=== PATIENT | female | born 1950 | race African-American/Black ===

== ENCOUNTER → 2016-12-28 | Outpatient (CLI) | payer MEDICARE, MEDICAID ==
[~2016-12-28] MED LIST: ATOR80TA76 PO; CLOP75TA2 PO; DOXA4TAB3 PO; METO25TA6 PO; OMEP20CA10 PO; SITA100T6 PO; TRIA1CAP6 PO
== END | disposition home or self-care (01) ==
LOC: MAMMO 07:13
PROVIDERS: ATTEND Internal Medicine
DX: Z12.31 Encounter for screening mammogram for malignant neoplasm of breast (principal)
CPT/HCPCS: G0202

== ENCOUNTER 2017-03-03 05:10 | Inpatient (IN) | payer MEDICARE, MEDICAID ==
[~2017-03-03] VITALS: Ht 160 cm; Wt 103.4 kg
[~2017-03-03 05:10] MED LIST changes: +ATOR-2 PO; -ATOR80TA76 PO
[2017-03-03] MEDS ORDERED: MORPHINE SULFATE 4 MG/ML CPJ (NOT FOR IM USE) IV STA (06:37)
[2017-03-03] MEDS ORDERED: ONDANSETRON HCL 4MG/2ML VIAL IV STA (06:37)
[2017-03-03 07:13] LABS: BASOPHILS % 0.3 % (0.0-2.0); EOSINOPHILS % 1.3 % (0.0-5.0); HEMATOCRIT. 43.6 % (36.0-48.0); HEMOGLOBIN. 14.9 g/dL (12.0-16.0); LYMPHOCYTES % 28.9 % (20.0-50.0); MEAN CORPUSCULAR HEMOGLOBIN 34.2 pg (28.0-32.0); MEAN CORPUSCULAR VOLUME 100.3 fL (81.0-99.0); MEAN PLATELET VOLUME 8.3 fl (7.4-10.4); MONOCYTES % 6.3 % (2.0-8.0); NEUTROPHILS % 63.2 % (40.0-76.0); PLATELET 188 x1000/uL (130-400); RED BLOOD CELL COUNT 4.35 mill/uL (4.2-5.4); RED CELL DISTRIBUTION WIDTH 13.6 % (11.6-14.6)
[2017-03-03 07:17] LABS: PARTIAL THROMBOPLASTIN TIME 26.6 sec (24.0-34.0); PROTHROMBIN TIME 10.8 sec
[2017-03-03 07:22] LABS: CARBON DIOXIDE 31 mEq/L (21-32); CHLORIDE 103 mEq/L (98-107); TROPONIN I < 0.02 ng/mL (0.00-0.04)
[2017-03-03 08:21] LABS: GLUCOSE URINE NEGATIVE (NEGATIVE); KETONES URINE NEGATIVE (NEGATIVE); LEUKOCYTE ESTERASE URINE NEGATIVE (NEGATIVE); NITRITE URINE NEGATIVE (NEGATIVE); OCCULT BLOOD URINE NEGATIVE (NEGATIVE); PH URINE 6.5 (4.5-8.0); PROTEIN URINE NEGATIVE (NEGATIVE); SPECIFIC GRAVITY URINE 1.014 (1.005-1.030); UROBILINOGEN URINE 0.2 E.U./dL (0.2-1.0)
[2017-03-03 08:52] LABS: CLARITY URINE CLEAR (CLEAR); COLOR URINE YELLOW (YELLOW)
[2017-03-03] MEDS ORDERED: SODIUM CHLORIDE 0.9% 10ML VIAL ONE (09:33)
[2017-03-03] MEDS ORDERED: IOHEXOL-300 100 ML BOTTLE ONE (09:33)
[2017-03-03] MEDS ORDERED: ACETAMINOPHEN 325MG TABLET PO PRN (11:00)
[2017-03-03] MEDS ORDERED: LORAZEPAM 2MG/ML CPJ IV PRN (11:00)
[2017-03-03] MEDS ORDERED: DOCUSATE SODIUM 100MG CAPSULE PO PRN (11:00)
[2017-03-03] MEDS ORDERED: GUAIFENESIN 200MG/10ML SUGAR FREE UDC PO PRN (11:00)
[2017-03-03] MEDS ORDERED: NA PHOS,M-B/NA PHOS,DI-BA ENEMA 118ML PR PRN (11:00)
[2017-03-03] MEDS ORDERED: DIPHENHYDRAMINE 50MG/ML VIAL IV PRN (11:00)
[2017-03-03] MEDS ORDERED: ONDANSETRON HCL 4MG/2ML VIAL IV PRN ×2 (11:00→17:00)
[2017-03-03] MEDS ORDERED: IPRATROPIUM/ALBUTEROL 0.5-3(2.5)MG/3ML NEB INH PRN (11:00)
[2017-03-03] MEDS ORDERED: DEXTROSE 50% WATER 50ML SYRINGE IV PRN (12:00)
[2017-03-03] MEDS: BLOOD SUGAR DIAGNOSTIC STRIP TEST SCH ×3 (12:12→20:11)
[2017-03-03] MEDS: INSULIN LISPRO 100 UNITS/ML SUBCUT SCH ×3 (12:12→20:23)
[2017-03-03 12:23] VITALS: BP 122/78
[2017-03-03] MEDS: DILTIAZEM HCL 30MG TABLET PO SCH ×2 (13:15→21:45)
[2017-03-03] MEDS: ENOXAPARIN 30MG/0.3ML SYR SUBCUT SCH ×2 (13:16→20:11)
[2017-03-03] MEDS: HYDROCODONE/ACETAMINOPHEN 5/325MG TABLET PO PRN (13:16)
[2017-03-03 15:36] LABS: CARBON DIOXIDE 27 mEq/L (21-32); CHLORIDE 103 mEq/L (98-107); TROPONIN I < 0.02 ng/mL (0.00-0.04)
[2017-03-03] MEDS: METOCLOPRAMIDE HCL 10MG/2ML VIAL IV PRN (15:53)
[2017-03-03 16:00] VITALS: BP 109/64
[2017-03-03] MEDS ORDERED: ONDANSETRON INJ 8 MG in DEXTROSE 5% WATER 50 ML IV PRN (16:00)
[2017-03-03 20:00] VITALS: BP 130/61
[2017-03-03] MEDS ORDERED: POTASSIUM CHLORIDE 20MEQ TABLET SR PO NR (20:00)
[2017-03-03] MEDS: METOPROLOL TARTRATE 25MG TABLET PO SCH (20:10)
[2017-03-03] MEDS: ATORVASTATIN CALCIUM 40MG TABLET PO SCH (20:11)
[2017-03-04] VITALS: BP 130/52
[2017-03-04 04:00] VITALS: BP 116/55
[2017-03-04] MEDS: BLOOD SUGAR DIAGNOSTIC STRIP TEST SCH ×4 (06:25→21:21)
[2017-03-04] MEDS: OMEPRAZOLE 20MG CAPSULE EXTENDED RELEASE PO SCH (06:33)
[2017-03-04] MEDS: DILTIAZEM HCL 30MG TABLET PO SCH ×3 (06:37→21:22)
[2017-03-04] MEDS: INSULIN LISPRO 100 UNITS/ML SUBCUT SCH ×4 (07:05→21:00)
[2017-03-04 07:50] LABS: BASOPHILS % 0.6 % (0.0-2.0); EOSINOPHILS % 1.7 % (0.0-5.0); HEMATOCRIT. 40.8 % (36.0-48.0); LYMPHOCYTES % 38.3 % (20.0-50.0); MEAN CORPUSCULAR VOLUME 99.1 fL (81.0-99.0); MEAN PLATELET VOLUME 8.4 fl (7.4-10.4); MONOCYTES % 7.8 % (2.0-8.0); NEUTROPHILS % 51.6 % (40.0-76.0); PLATELET 170 x1000/uL (130-400); RED BLOOD CELL COUNT 4.12 mill/uL (4.2-5.4); RED CELL DISTRIBUTION WIDTH 13.4 % (11.6-14.6)
[2017-03-04 08:00] VITALS: BP 135/56
[2017-03-04 08:21] LABS: CARBON DIOXIDE 26 mEq/L (21-32); CHLORIDE 107 mEq/L (98-107); HDL CHOLESTEROL 46 mg/dL (40-59); LDL CHOLESTEROL 55 mg/dL (5-100); T4 FREE 0.91 ng/dL (0.76-1.46)
[2017-03-04] MEDS: METOPROLOL TARTRATE 25MG TABLET PO SCH ×2 (08:34→21:23)
[2017-03-04] MEDS ORDERED: MEDICATION NOT ON FORMULARY EA (Atorvastatin Calcium 80 MG) PO SCH (09:00)
[2017-03-04] MEDS ORDERED: MEDICATION NOT ON FORMULARY EA (Sitagliptin Phosphate (Januvia) 100 MG) PO SCH (09:00)
[2017-03-04] MEDS: CLOPIDOGREL 75MG TABLET PO SCH (09:10)
[2017-03-04] MEDS: ASPIRIN 81MG EC TABLET PO SCH (09:11)
[2017-03-04] MEDS: LINAGLIPTIN 5MG TABLET PO SCH (09:11)
[2017-03-04] MEDS: ENOXAPARIN 30MG/0.3ML SYR SUBCUT SCH ×2 (09:11→21:23)
[2017-03-04] MEDS: DOXAZOSIN MESYLATE 4MG TABLET PO SCH (09:11)
[2017-03-04 12:00] VITALS: BP 143/76
[2017-03-04] MEDS: HYDROMORPHONE HCL/PF 2MG/ML CPJ IV PRN ×2 (15:02→20:30)
[2017-03-04 16:11] VITALS: BP 143/76
[2017-03-04] MEDS: METOCLOPRAMIDE HCL 10MG/2ML VIAL IV PRN (17:36)
[2017-03-04 20:00] VITALS: BP 139/81
[2017-03-04] MEDS: ATORVASTATIN CALCIUM 40MG TABLET PO SCH (21:24)
[2017-03-05] VITALS: BP 121/64
[2017-03-05] MEDS: HYDROMORPHONE HCL/PF 2MG/ML CPJ IV PRN (03:37)
[2017-03-05 04:00] VITALS: BP 124/75
[2017-03-05] MEDS: BLOOD SUGAR DIAGNOSTIC STRIP TEST SCH ×4 (06:21→20:19)
[2017-03-05] MEDS: OMEPRAZOLE 20MG CAPSULE EXTENDED RELEASE PO SCH (06:21)
[2017-03-05] MEDS: DILTIAZEM HCL 30MG TABLET PO SCH (06:21)
[2017-03-05] MEDS: INSULIN LISPRO 100 UNITS/ML SUBCUT SCH ×4 (06:21→21:05)
[2017-03-05 06:42] LABS: BASOPHILS % 0.3 % (0.0-2.0); EOSINOPHILS % 1.5 % (0.0-5.0); HEMATOCRIT. 38.8 % (36.0-48.0); HEMOGLOBIN. 13.3 g/dL (12.0-16.0); LYMPHOCYTES % 21.8 % (20.0-50.0); MEAN CORPUSCULAR HEMOGLOBIN 34.2 pg (28.0-32.0); MEAN CORPUSCULAR VOLUME 99.5 fL (81.0-99.0); MEAN PLATELET VOLUME 8.2 fl (7.4-10.4); MONOCYTES % 8.9 % (2.0-8.0); NEUTROPHILS % 67.5 % (40.0-76.0); PLATELET 160 x1000/uL (130-400); RED CELL DISTRIBUTION WIDTH 13.7 % (11.6-14.6)
[2017-03-05 07:25] LABS: CARBON DIOXIDE 28 mEq/L (21-32); CHLORIDE 105 mEq/L (98-107)
[2017-03-05 08:00] VITALS: BP 142/62
[2017-03-05] MEDS: CLOPIDOGREL 75MG TABLET PO SCH (08:49)
[2017-03-05] MEDS: ENOXAPARIN 30MG/0.3ML SYR SUBCUT SCH ×2 (08:50→20:59)
[2017-03-05] MEDS: METOPROLOL TARTRATE 25MG TABLET PO SCH ×2 (08:50→20:58)
[2017-03-05] MEDS: ASPIRIN 81MG EC TABLET PO SCH (08:50)
[2017-03-05] MEDS: LINAGLIPTIN 5MG TABLET PO SCH (08:50)
[2017-03-05] MEDS: DOXAZOSIN MESYLATE 4MG TABLET PO SCH (08:50)
[2017-03-05 12:00] VITALS: BP 140/69
[2017-03-05] MEDS: DILTIAZEM HCL 60MG TABLET PO SCH ×2 (14:32→20:58)
[2017-03-05 16:09] VITALS: BP 170/71
[2017-03-05] MEDS: HYDROCODONE/ACETAMINOPHEN 5/325MG TABLET PO PRN (16:29)
[2017-03-05] MEDS ORDERED: POTASSIUM CHLORIDE 20MEQ TABLET SR PO NR (16:50)
[2017-03-05] MEDS ORDERED: CLONIDINE 0.2MG TABLET PO PRN (16:51)
[2017-03-05 20:00] VITALS: BP 132/77
[2017-03-05] MEDS: ATORVASTATIN CALCIUM 40MG TABLET PO SCH (20:58)
[2017-03-06] VITALS: BP 115/57
[2017-03-06 04:00] VITALS: BP 142/81
[2017-03-06 05:30] VITALS: BP 102/70
[2017-03-06] MEDS: BLOOD SUGAR DIAGNOSTIC STRIP TEST SCH (05:38)
[2017-03-06] MEDS: HYDROCODONE/ACETAMINOPHEN 5/325MG TABLET PO PRN (05:42)
[2017-03-06] MEDS: DILTIAZEM HCL 60MG TABLET PO SCH (05:42)
[2017-03-06] MEDS: INSULIN LISPRO 100 UNITS/ML SUBCUT SCH (05:43)
[2017-03-06] MEDS: OMEPRAZOLE 20MG CAPSULE EXTENDED RELEASE PO SCH (05:52)
[2017-03-06 07:15] LABS: BASOPHILS % 0.3 % (0.0-2.0); EOSINOPHILS % 1.4 % (0.0-5.0); HEMATOCRIT. 37.7 % (36.0-48.0); HEMOGLOBIN. 12.7 g/dL (12.0-16.0); LYMPHOCYTES % 27.9 % (20.0-50.0); MEAN CORPUSCULAR HEMOGLOBIN 33.8 pg (28.0-32.0); MEAN CORPUSCULAR VOLUME 100.6 fL (81.0-99.0); MEAN PLATELET VOLUME 8.8 fl (7.4-10.4); MONOCYTES % 8.8 % (2.0-8.0); NEUTROPHILS % 61.6 % (40.0-76.0); PLATELET 156 x1000/uL (130-400); RED BLOOD CELL COUNT 3.75 mill/uL (4.2-5.4); RED CELL DISTRIBUTION WIDTH 13.6 % (11.6-14.6)
[2017-03-06 07:44] LABS: CARBON DIOXIDE 26 mEq/L (21-32); CHLORIDE 109 mEq/L (98-107)
[2017-03-06 08:00] VITALS: BP 130/67
[2017-03-06] MEDS ORDERED: REGADENOSON 0.4 MG/5 ML IV ONE ×2 (09:14→13:00)
[2017-03-06 10:13] VITALS: BP 130/67
[2017-03-06] MEDS: ASPIRIN 81MG EC TABLET PO SCH (11:01)
[2017-03-06] MEDS: LINAGLIPTIN 5MG TABLET PO SCH (11:01)
[2017-03-06] MEDS: DOXAZOSIN MESYLATE 4MG TABLET PO SCH (11:01)
[2017-03-06] MEDS: CLOPIDOGREL 75MG TABLET PO SCH (11:01)
[2017-03-06] MEDS: METOPROLOL TARTRATE 25MG TABLET PO SCH (11:02)
[2017-03-06] MEDS: ENOXAPARIN 30MG/0.3ML SYR SUBCUT SCH (11:02)
== END 2017-03-06 11:14 | disposition home or self-care (01) | DRG 392 ==
LOC: ER 05:10 → ENRESERV 09:55 → 8WST 10:51 → EDBEDREQ 11:05
PROVIDERS: ADMIT Internal Medicine; ATTEND Internal Medicine
DX: K21.9 Gastro-esophageal reflux disease without esophagitis (principal); Z68.41 Body mass index [BMI] 40.0-44.9, adult; E78.5 Hyperlipidemia, unspecified; I50.9 Heart failure, unspecified; I11.0 Hypertensive heart disease with heart failure; E66.01 Morbid (severe) obesity due to excess calories; E11.51 Type 2 diabetes mellitus with diabetic peripheral angiopathy without gangrene; E78.00 Pure hypercholesterolemia, unspecified; F17.200 Nicotine dependence, unspecified, uncomplicated; I25.10 Atherosclerotic heart disease of native coronary artery without angina pectoris; J44.9 Chronic obstructive pulmonary disease, unspecified; I25.2 Old myocardial infarction; Z79.84 Long term (current) use of oral hypoglycemic drugs; Z79.899 Other long term (current) drug therapy; Z86.73 Personal history of transient ischemic attack (TIA), and cerebral infarction without residual deficits; Z88.0 Allergy status to penicillin; Z88.8 Allergy status to other drugs, medicaments and biological substances; Z91.040 Latex allergy status; Z98.891 History of uterine scar from previous surgery; Z79.4 Long term (current) use of insulin
CPT/HCPCS: 36415; 71010; 74177; 76705; 78452; 80048; 80053; 80061; 81003; 82962; 83690; 84439; 84443; 84484; 85025; 85610; 85730; 93005; 93017; 93306; 94640; 96374; 96375; 96376; 99285; A4216; A9500; J1170; J1650; J1815; J2270; J2405; J2765; J2785; J7620; Q9967

== ENCOUNTER → 2018-01-19 | Outpatient (CLI) | payer MEDICARE, MEDICAID ==
[~2018-01-19] MED LIST changes: +CLOP75TA16 PO; -CLOP75TA2 PO; +SITA100T11 PO; -SITA100T6 PO
== END | disposition home or self-care (01) ==
LOC: MAMMO 07:43
PROVIDERS: ATTEND Specialist
DX: Z12.31 Encounter for screening mammogram for malignant neoplasm of breast (principal)
CPT/HCPCS: 77067

== ENCOUNTER 2018-07-02 17:46 | Inpatient (IN) | payer MEDICARE, MEDICAID ==
[~2018-07-02] VITALS: Ht 160 cm; Wt 98.4 kg
[2018-07-02] MEDS ORDERED: ASPIRIN 81MG TABLET PO ONE (20:30)
[2018-07-02] MEDS ORDERED: NITROGLYCERIN 0.4MG TABLET SL SL PRN (20:30)
[2018-07-02] MEDS ORDERED: LEVOFLOXACIN 750MG PREMIX 150 ML IV ONE (20:45)
[2018-07-02] MEDS ORDERED: SODIUM CHLORIDE 0.9% 1000ML BAG (SEPSIS BOLUS) IV ONE (20:45)
[2018-07-02 21:23] LABS: BASOPHILS % 0.6 % (0.0-2.0); HEMATOCRIT. 42.5 % (36.0-48.0); HEMOGLOBIN. 14.5 g/dL (12.0-16.0); LYMPHOCYTES % 30.7 % (20.0-50.0); MEAN CORPUSCULAR HEMOGLOBIN 34.8 pg (28.0-32.0); MEAN CORPUSCULAR VOLUME 101.8 fL (81.0-99.0); MEAN PLATELET VOLUME 8.4 fl (7.4-10.4); MONOCYTES % 7.2 % (2.0-8.0); NEUTROPHILS % 60.5 % (40.0-76.0); PLATELET 180 x1000/uL (130-400); RED BLOOD CELL COUNT 4.17 mill/uL (4.2-5.4)
[2018-07-02 21:25] LABS: CHLORIDE 107 mEq/L (98-107)
[2018-07-02 21:29] LABS: D-DIMER 0.44 mg/L FEU (<0.50); INR 1.1; PARTIAL THROMBOPLASTIN TIME 25.8 sec (23.4-31.0); PROTHROMBIN TIME 10.7 sec (9.1-11.1)
[2018-07-02 21:42] LABS: CLARITY URINE CLEAR (CLEAR); COLOR URINE YELLOW (YELLOW); KETONES URINE NEGATIVE (NEGATIVE); LEUKOCYTE ESTERASE URINE 1+ (NEGATIVE); NITRITE URINE NEGATIVE (NEGATIVE); OCCULT BLOOD URINE NEGATIVE (NEGATIVE); PROTEIN URINE NEGATIVE (NEGATIVE); SPECIFIC GRAVITY URINE 1.024 (1.005-1.030); UROBILINOGEN URINE 0.2 E.U./dL (0.2-1.0)
[2018-07-02] MEDS ORDERED: IPRATROPIUM/ALBUTEROL 0.5-3(2.5)MG/3ML NEB INH PRN (22:30)
[2018-07-02] MEDS ORDERED: ACETAMINOPHEN 325MG TABLET PO PRN (22:30)
[2018-07-02] MEDS ORDERED: MAGNESIUM/ALUMINUM HYDROXIDE/SIMETHICONE 30ML UDC PO PRN (22:30)
[2018-07-02] MEDS ORDERED: MORPHINE SULFATE 2 MG/ML CPJ (NOT FOR IM USE) IV PRN (22:30)
[2018-07-02] MEDS ORDERED: CLONIDINE 0.1MG TABLET PO PRN (22:30)
[2018-07-03] MEDS: HYDROCODONE/ACETAMINOPHEN 5/325MG TABLET PO PRN ×2 (08:12→20:28)
[2018-07-03] MEDS ORDERED: AMLODIPINE 10MG TABLET PO SCH (09:00)
[2018-07-03 09:08] VITALS: BP 132/66
[2018-07-03] MEDS ORDERED: POTASSIUM CHLORIDE 20MEQ TABLET SR PO SCH (11:30)
[2018-07-03] MEDS ORDERED: CLOPIDOGREL 75MG TABLET PO SCH (11:45)
[2018-07-03 12:37] VITALS: BP 155/66
[2018-07-03] MEDS: METOPROLOL TARTRATE 25MG TABLET PO SCH ×2 (13:09→21:00)
[2018-07-03] MEDS: PANTOPRAZOLE SODIUM 40 MG/VIAL IV SCH (13:10)
[2018-07-03] MEDS: TRIAMTERENE/HYDROCHLOROTHIAZIDE 37.5/25MG CAPSULE PO SCH (13:25)
[2018-07-03 15:57] VITALS: BP 174/72
[2018-07-03 17:00] LABS: BASOPHILS % 0.2 % (0.0-2.0); EOSINOPHILS % 1.1 % (0.0-5.0); HEMATOCRIT. 37.8 % (36.0-48.0); LYMPHOCYTES % 36.5 % (20.0-50.0); MEAN CORPUSCULAR HEMOGLOBIN 34.8 pg (28.0-32.0); MEAN CORPUSCULAR VOLUME 101.5 fL (81.0-99.0); MEAN PLATELET VOLUME 8.2 fl (7.4-10.4); MONOCYTES % 10.3 % (2.0-8.0); NEUTROPHILS % 51.9 % (40.0-76.0); PLATELET 157 x1000/uL (130-400); RED BLOOD CELL COUNT 3.73 mill/uL (4.2-5.4); RED CELL DISTRIBUTION WIDTH 13.9 % (11.6-14.6)
[2018-07-03] MEDS: INSULIN LISPRO 100 UNITS/ML SUBCUT SCH ×2 (17:20→20:37)
[2018-07-03] MEDS ORDERED: DEXTROSE 50% WATER 50ML SYRINGE IV PRN (17:30)
[2018-07-03 18:50] LABS: CHLORIDE 108 mEq/L (98-107)
[2018-07-03 18:58] LABS: CREATINE KINASE 68 IU/L (26-192); HDL CHOLESTEROL 38 mg/dL (40-59); LDL CHOLESTEROL 51 mg/dL (5-100)
[2018-07-03 19:03] LABS: CREATINE KINASE MB FRACTION < 1.0 ng/mL (0.5-3.6)
[2018-07-03 20:00] VITALS: BP 115/56
[2018-07-03] MEDS: ONDANSETRON HCL 4MG/2ML INJ IV PRN (20:25)
[2018-07-03] MEDS: DOXAZOSIN MESYLATE 4MG TABLET PO SCH (20:27)
[2018-07-03] MEDS: ATORVASTATIN CALCIUM 40MG TABLET PO SCH (20:32)
[2018-07-03] MEDS: BLOOD SUGAR DIAGNOSTIC STRIP TEST SCH (20:36)
[2018-07-04] VITALS (8 sets, daily range): BP systolic 101–155; BP diastolic 54–66
[2018-07-04] MEDS: BLOOD SUGAR DIAGNOSTIC STRIP TEST SCH ×4 (07:21→21:27)
[2018-07-04] MEDS: INSULIN LISPRO 100 UNITS/ML SUBCUT SCH ×4 (07:22→21:00)
[2018-07-04] MEDS: TRIAMTERENE/HYDROCHLOROTHIAZIDE 37.5/25MG CAPSULE PO SCH (09:01)
[2018-07-04] MEDS: CLOPIDOGREL 75MG TABLET PO SCH ×2 (09:02→09:03)
[2018-07-04] MEDS: METOPROLOL TARTRATE 25MG TABLET PO SCH ×2 (09:02→21:24)
[2018-07-04] MEDS: PANTOPRAZOLE SODIUM 40 MG/VIAL IV SCH (09:02)
[2018-07-04] MEDS ORDERED: POTASSIUM CHLORIDE 20MEQ TABLET SR PO NR (09:30)
[2018-07-04] MEDS: HYDROCODONE/ACETAMINOPHEN 5/325MG TABLET PO PRN ×2 (10:14→18:42)
[2018-07-04] MEDS: ONDANSETRON HCL 4MG/2ML INJ IV PRN (10:14)
[2018-07-04] MEDS: NICOTINE 21MG PATCH TD SCH (10:15)
[2018-07-04] MEDS: ATORVASTATIN CALCIUM 40MG TABLET PO SCH (21:23)
[2018-07-04] MEDS: DOXAZOSIN MESYLATE 4MG TABLET PO SCH ×2 (21:24→21:25)
[2018-07-05] VITALS: BP 118/69
[2018-07-05 04:00] VITALS: BP 113/68
[2018-07-05] MEDS: BLOOD SUGAR DIAGNOSTIC STRIP TEST SCH (07:10)
[2018-07-05] MEDS: INSULIN LISPRO 100 UNITS/ML SUBCUT SCH (07:40)
[2018-07-05 07:44] LABS: BASOPHILS % 0.3 % (0.0-2.0); EOSINOPHILS % 1.5 % (0.0-5.0); HEMATOCRIT. 39.2 % (36.0-48.0); HEMOGLOBIN. 13.6 g/dL (12.0-16.0); LYMPHOCYTES % 42.4 % (20.0-50.0); MEAN CORPUSCULAR HEMOGLOBIN 35.1 pg (28.0-32.0); MEAN CORPUSCULAR VOLUME 101.3 fL (81.0-99.0); MEAN PLATELET VOLUME 8.6 fl (7.4-10.4); MONOCYTES % 6.9 % (2.0-8.0); NEUTROPHILS % 48.9 % (40.0-76.0); PLATELET 168 x1000/uL (130-400); RED BLOOD CELL COUNT 3.87 mill/uL (4.2-5.4); RED CELL DISTRIBUTION WIDTH 13.6 % (11.6-14.6)
[2018-07-05 08:00] VITALS: BP 129/91
[2018-07-05] MEDS: PANTOPRAZOLE SODIUM 40 MG/VIAL IV SCH (08:46)
[2018-07-05] MEDS: TRIAMTERENE/HYDROCHLOROTHIAZIDE 37.5/25MG CAPSULE PO SCH (08:46)
[2018-07-05] MEDS: METOPROLOL TARTRATE 25MG TABLET PO SCH (08:46)
[2018-07-05] MEDS: CLOPIDOGREL 75MG TABLET PO SCH (08:46)
[2018-07-05] MEDS: NICOTINE 21MG PATCH TD SCH (08:46)
[2018-07-05 09:42] LABS: CHLORIDE 107 mEq/L (98-107)
[2018-07-05 10:00] VITALS: BP 129/91
== END 2018-07-05 11:58 | disposition home or self-care (01) | DRG 313 ==
LOC: ER 17:46 → SUPCPDRO 22:26 → 8WST 22:28 → EDBEDREQ 22:32 → EDBEDREQTM 22:32 → ENRESERV 07-03 08:06
PROVIDERS: ADMIT Hospitalist; ATTEND Hospitalist
DX: R07.89 Other chest pain (principal); I50.32 Chronic diastolic (congestive) heart failure; I11.0 Hypertensive heart disease with heart failure; E78.5 Hyperlipidemia, unspecified; E87.6 Hypokalemia; E11.51 Type 2 diabetes mellitus with diabetic peripheral angiopathy without gangrene; E78.00 Pure hypercholesterolemia, unspecified; F17.210 Nicotine dependence, cigarettes, uncomplicated; I25.10 Atherosclerotic heart disease of native coronary artery without angina pectoris; I48.91 Unspecified atrial fibrillation; Z53.29 Procedure and treatment not carried out because of patient's decision for other reasons; Z82.49 Family history of ischemic heart disease and other diseases of the circulatory system; Z86.74 Personal history of sudden cardiac arrest; Z88.0 Allergy status to penicillin; Z79.899 Other long term (current) drug therapy; Z71.6 Tobacco abuse counseling; Z88.8 Allergy status to other drugs, medicaments and biological substances; Z79.02 Long term (current) use of antithrombotics/antiplatelets; Z98.891 History of uterine scar from previous surgery
CPT/HCPCS: 36415; 71045; 80061; 82550; 82553; 82962; 83036; 83605; 83735; 83880; 84484; 85379; 93005; 93306; 93970; 99285; C9113; J1956; J2405; J7030

== ENCOUNTER 2018-08-29 20:24 | Inpatient (IN) | payer MEDICARE, MEDICAID ==
[~2018-08-29] VITALS: Ht 157.5 cm; Wt 92.1 kg
[2018-08-29] MEDS ORDERED: NITROGLYCERIN 0.4MG TABLET SL SL PRN (21:45)
[2018-08-29] MEDS ORDERED: ASPIRIN 81MG TABLET PO ONE (21:45)
[2018-08-29 22:13] LABS: CHLORIDE 106 mEq/L (98-107)
[2018-08-29 22:15] LABS: BASOPHILS % 0.4 % (0.0-2.0); EOSINOPHILS % 1.4 % (0.0-5.0); HEMATOCRIT. 40.5 % (36.0-48.0); HEMOGLOBIN. 13.7 g/dL (12.0-16.0); LYMPHOCYTES % 26.2 % (20.0-50.0); MEAN CORPUSCULAR HEMOGLOBIN 34.5 pg (28.0-32.0); MEAN CORPUSCULAR VOLUME 102.2 fL (81.0-99.0); MEAN PLATELET VOLUME 7.6 fl (7.4-10.4); MONOCYTES % 7.4 % (2.0-8.0); NEUTROPHILS % 64.6 % (40.0-76.0); PLATELET 197 x1000/uL (130-400); RED BLOOD CELL COUNT 3.96 mill/uL (4.2-5.4); RED CELL DISTRIBUTION WIDTH 13.7 % (11.6-14.6)
[2018-08-29 22:19] LABS: D-DIMER 0.43 mg/L FEU (<0.50); INR 1.1; PARTIAL THROMBOPLASTIN TIME 26.8 sec (23.4-31.0); PROTHROMBIN TIME 10.8 sec (9.1-11.1)
[2018-08-29] MEDS ORDERED: POTASSIUM CHLORIDE 20MEQ TABLET SR PO ONE (23:30)
[2018-08-29] MEDS ORDERED: ACETAMINOPHEN 325MG TABLET PO ONE (23:30)
[2018-08-30] MEDS: ACETAMINOPHEN 325MG TABLET PO PRN ×2 (09:28→17:37)
[2018-08-30 10:03] LABS: CREATINE KINASE 61 IU/L (26-192)
[2018-08-30 10:06] LABS: CREATINE KINASE MB FRACTION < 1.0 ng/mL (0.5-3.6)
[2018-08-30 15:00] VITALS: BP 126/50
[2018-08-30 16:00] VITALS: BP 169/74
[2018-08-30] MEDS ORDERED: DIATR MEGLU/DIATRIZOATE SOLN 30ML PO SCH (17:30)
[2018-08-30] MEDS: ONDANSETRON HCL 4MG/2ML INJ IV PRN (17:37)
[2018-08-30] MEDS: NICOTINE 7MG PATCH TD SCH (19:19)
[2018-08-30] MEDS: PANTOPRAZOLE SODIUM 40 MG/VIAL IV SCH (19:19)
[2018-08-30 20:00] VITALS: BP 113/70
[2018-08-31] VITALS: BP 141/75
[2018-08-31 04:00] VITALS: BP 144/66
[2018-08-31] MEDS: HYDROCODONE/ACETAMINOPHEN 5/325MG TABLET PO PRN (05:55)
[2018-08-31] MEDS ORDERED: DIATR MEGLU/DIATRIZOATE SOLN 30ML PO SCH (06:00)
[2018-08-31 08:00] VITALS: BP 154/70
[2018-08-31] MEDS: ASPIRIN 81MG TABLET PO SCH (09:00)
[2018-08-31] MEDS: PANTOPRAZOLE SODIUM 40 MG/VIAL IV SCH (09:07)
[2018-08-31] MEDS: NICOTINE 7MG PATCH TD SCH (09:07)
[2018-08-31 09:52] LABS: BASOPHILS % 0.9 % (0.0-2.0); EOSINOPHILS % 1.7 % (0.0-5.0); HEMATOCRIT. 37.5 % (36.0-48.0); HEMOGLOBIN. 12.6 g/dL (12.0-16.0); LYMPHOCYTES % 43.5 % (20.0-50.0); MEAN CORPUSCULAR HEMOGLOBIN 34.3 pg (28.0-32.0); MEAN CORPUSCULAR VOLUME 102.4 fL (81.0-99.0); MEAN PLATELET VOLUME 7.5 fl (7.4-10.4); MONOCYTES % 7.9 % (2.0-8.0); PLATELET 177 x1000/uL (130-400); RED BLOOD CELL COUNT 3.67 mill/uL (4.2-5.4); RED CELL DISTRIBUTION WIDTH 13.8 % (11.6-14.6)
[2018-08-31 09:58] LABS: INR 1.1; PARTIAL THROMBOPLASTIN TIME 28.2 sec (23.4-31.0)
[2018-08-31] MEDS ORDERED: IOHEXOL-300 100 ML BOTTLE ONE (10:11)
[2018-08-31 10:54] LABS: CHLORIDE 106 mEq/L (98-107)
[2018-08-31 12:00] VITALS: BP 134/68
[2018-08-31] MEDS ORDERED: MIDAZOLAM HCL 5 MG/5 ML VIAL ONE (14:58)
[2018-08-31] MEDS ORDERED: FENTANYL CITRATE/PF 50MCG/ML 2ML VIAL ONE (14:58)
[2018-08-31] MEDS ORDERED: SIMETHICONE 40 MG/0.6 ML 30ML ONE (15:11)
[2018-08-31] MEDS ORDERED: SODIUM CHLORIDE 0.9% 10ML VIAL ONE (15:11)
[2018-08-31] MEDS ORDERED: MIDAZOLAM HCL 5 MG/5 ML VIAL IV PRN (15:17)
[2018-08-31] MEDS ORDERED: FENTANYL CITRATE/PF 50MCG/ML 2ML VIAL IV PRN (15:18)
[2018-08-31 16:30] VITALS: BP 108/56
[2018-08-31 20:00] VITALS: BP 113/64
[2018-09-01] VITALS: BP 135/65
[2018-09-01 04:00] VITALS: BP 145/53
[2018-09-01] MEDS: HYDROCODONE/ACETAMINOPHEN 5/325MG TABLET PO PRN ×2 (05:21→18:17)
[2018-09-01] MEDS: ONDANSETRON HCL 4MG/2ML INJ IV PRN ×2 (05:23→19:26)
[2018-09-01 07:27] LABS: BASOPHILS % 0.3 % (0.0-2.0); EOSINOPHILS % 2.2 % (0.0-5.0); HEMATOCRIT. 39.1 % (36.0-48.0); LYMPHOCYTES % 29.2 % (20.0-50.0); MEAN CORPUSCULAR HEMOGLOBIN 34.5 pg (28.0-32.0); MEAN CORPUSCULAR VOLUME 103.3 fL (81.0-99.0); MONOCYTES % 5.9 % (2.0-8.0); NEUTROPHILS % 62.4 % (40.0-76.0); PLATELET 184 x1000/uL (130-400); RED BLOOD CELL COUNT 3.78 mill/uL (4.2-5.4); RED CELL DISTRIBUTION WIDTH 13.9 % (11.6-14.6)
[2018-09-01 07:34] LABS: CHLORIDE 106 mEq/L (98-107)
[2018-09-01] MEDS: ASPIRIN 81MG TABLET PO SCH (08:02)
[2018-09-01] MEDS: PANTOPRAZOLE SODIUM 40 MG/VIAL IV SCH (08:03)
[2018-09-01] MEDS: NICOTINE 7MG PATCH TD SCH (08:03)
[2018-09-01 12:00] VITALS: BP 141/72
[2018-09-01 16:00] VITALS: BP 120/66
[2018-09-01 20:00] VITALS: BP 143/59
[2018-09-01] MEDS: DIPHENHYDRAMINE 50MG/ML VIAL IV PRN (21:46)
[2018-09-02] VITALS: BP 125/33
[2018-09-02 04:00] VITALS: BP 117/49
[2018-09-02] MEDS: DIPHENHYDRAMINE 50MG/ML VIAL IV PRN (05:51)
[2018-09-02 07:09] LABS: BASOPHILS % 0.3 % (0.0-2.0); EOSINOPHILS % 2.5 % (0.0-5.0); HEMATOCRIT. 36.7 % (36.0-48.0); HEMOGLOBIN. 12.4 g/dL (12.0-16.0); LYMPHOCYTES % 42.4 % (20.0-50.0); MEAN CORPUSCULAR HEMOGLOBIN 34.5 pg (28.0-32.0); MEAN CORPUSCULAR VOLUME 102.6 fL (81.0-99.0); MEAN PLATELET VOLUME 8.2 fl (7.4-10.4); MONOCYTES % 8.8 % (2.0-8.0); PLATELET 183 x1000/uL (130-400); RED BLOOD CELL COUNT 3.58 mill/uL (4.2-5.4); RED CELL DISTRIBUTION WIDTH 13.4 % (11.6-14.6)
[2018-09-02 07:31] LABS: CHLORIDE 109 mEq/L (98-107)
[2018-09-02 08:00] VITALS: BP 140/60
[2018-09-02 08:03] VITALS: BP 140/60
[2018-09-02] MEDS: ASPIRIN 81MG TABLET PO SCH (08:03)
[2018-09-02] MEDS: PANTOPRAZOLE SODIUM 40 MG/VIAL IV SCH (08:03)
[2018-09-02] MEDS: NICOTINE 7MG PATCH TD SCH (08:03)
[2018-09-02] MEDS: HYDROCODONE/ACETAMINOPHEN 5/325MG TABLET PO PRN (08:03)
[2018-09-02] MEDS ORDERED: PROT40 MT (11:02)
[2018-09-02] MEDS ORDERED: ONDA4TAB5 MT (11:03)
[2018-09-02] MEDS ORDERED: HYDR-4001 PO (11:04)
[2018-09-02] MEDS ORDERED: HYDR-4001 MT (11:04)
== END 2018-09-02 12:52 | disposition home or self-care (01) | DRG 391 ==
LOC: ER 22:06 → 7WST 23:33 → EDBEDREQTM 23:35 → EDBEDREQ 23:35 → ENRESERV 08-30 13:15 → 7WST 08-30 15:50
PROVIDERS: ADMIT Internal Medicine; ATTEND Internal Medicine
PROC: 0DB98ZX Excision of Duodenum, Via Natural or Artificial Opening Endoscopic, Diagnostic (ICD-10-PCS; principal; 2018-08-31)
PROC: 0DB78ZX Excision of Stomach, Pylorus, Via Natural or Artificial Opening Endoscopic, Diagnostic (ICD-10-PCS; 2018-08-31)
DX: K29.60 Other gastritis without bleeding (principal); E43 Unspecified severe protein-calorie malnutrition; R07.89 Other chest pain; E78.5 Hyperlipidemia, unspecified; E87.6 Hypokalemia; K57.90 Diverticulosis of intestine, part unspecified, without perforation or abscess without bleeding; I11.0 Hypertensive heart disease with heart failure; I07.1 Rheumatic tricuspid insufficiency; K29.80 Duodenitis without bleeding; K44.9 Diaphragmatic hernia without obstruction or gangrene; I50.9 Heart failure, unspecified; I27.20 Pulmonary hypertension, unspecified; D75.89 Other specified diseases of blood and blood-forming organs; E78.00 Pure hypercholesterolemia, unspecified; E11.51 Type 2 diabetes mellitus with diabetic peripheral angiopathy without gangrene; E66.9 Obesity, unspecified; F17.210 Nicotine dependence, cigarettes, uncomplicated; J44.9 Chronic obstructive pulmonary disease, unspecified; Z68.37 Body mass index [BMI] 37.0-37.9, adult; Z90.710 Acquired absence of both cervix and uterus; Z88.0 Allergy status to penicillin; Z88.8 Allergy status to other drugs, medicaments and biological substances; Z71.6 Tobacco abuse counseling; Z71.3 Dietary counseling and surveillance; Z91.048 Other nonmedicinal substance allergy status; Z79.02 Long term (current) use of antithrombotics/antiplatelets; Z79.899 Other long term (current) drug therapy
CPT/HCPCS: 36415; 71045; 74177; 80048; 82378; 82550; 82553; 82962; 83880; 84484; 85379; 88305; 88312; 88313; 93005; 93970; 99285; C9113; J1200; J2250; J2405; J3010; Q9963; Q9967

== ENCOUNTER 2018-11-16 15:44 | Emergency (ER) | payer MEDICARE, MEDICAID ==
[~2018-11-16] VITALS: Ht 167.6 cm; Wt 94.1 kg
[~2018-11-16 15:44] MED LIST changes: +HYDR-4001 MT; +HYDR-4001 PO; -OMEP20CA10 PO; +ONDA4TAB5 MT; +PROT40 MT
[2018-11-16 17:19] LABS: BASOPHILS % 1.3 % (0.0-2.0); HEMATOCRIT. 39.6 % (36.0-48.0); HEMOGLOBIN. 13.7 g/dL (12.0-16.0); LYMPHOCYTES % 27.9 % (20.0-50.0); MEAN CORPUSCULAR HEMOGLOBIN 34.9 pg (28.0-32.0); MEAN CORPUSCULAR VOLUME 100.5 fL (81.0-99.0); MEAN PLATELET VOLUME 7.6 fl (7.4-10.4); MONOCYTES % 8.7 % (2.0-8.0); NEUTROPHILS % 61.1 % (40.0-76.0); PLATELET 200 x1000/uL (130-400); RED BLOOD CELL COUNT 3.94 mill/uL (4.2-5.4); RED CELL DISTRIBUTION WIDTH 13.5 % (11.6-14.6)
[2018-11-16 17:20] LABS: CHLORIDE 106 mEq/L (98-107)
[2018-11-16] MEDS ORDERED: HYDROCODONE/ACETAMINOPHEN 5/325MG TABLET PO ONE (19:45)
[2018-11-16 21:22] VITALS: BP 132/78
== END 2018-11-16 21:24 | disposition home or self-care (01) ==
LOC: ER 17:28
DX: R07.89 Other chest pain (principal); R05 Cough; R11.10 Vomiting, unspecified; I48.91 Unspecified atrial fibrillation; I11.9 Hypertensive heart disease without heart failure; E78.00 Pure hypercholesterolemia, unspecified; F17.200 Nicotine dependence, unspecified, uncomplicated; E11.9 Type 2 diabetes mellitus without complications; Z90.710 Acquired absence of both cervix and uterus; Z79.899 Other long term (current) drug therapy; Z88.0 Allergy status to penicillin; Z88.8 Allergy status to other drugs, medicaments and biological substances; Z90.89 Acquired absence of other organs; Z98.890 Other specified postprocedural states
CPT/HCPCS: 36415; 71045; 84484; 93005; 99284

== ENCOUNTER 2019-01-04 22:55 | Inpatient (IN) | payer MEDICARE, MEDICAID ==
[~2019-01-04] VITALS: Ht 160 cm; Wt 92.5 kg
[2019-01-04] MEDS ORDERED: NITROGLYCERIN 0.4MG TABLET SL SL PRN (23:30)
[2019-01-04] MEDS ORDERED: ASPIRIN 81MG TABLET PO ONE (23:30)
[2019-01-04 23:52] LABS: BASOPHILS % 0.9 % (0.0-2.0); EOSINOPHILS % 0.8 % (0.0-5.0); HEMATOCRIT. 39.6 % (36.0-48.0); LYMPHOCYTES % 24.7 % (20.0-50.0); MEAN CORPUSCULAR HEMOGLOBIN 36.2 pg (28.0-32.0); MEAN CORPUSCULAR VOLUME 102.4 fL (81.0-99.0); MEAN PLATELET VOLUME 7.3 fl (7.4-10.4); MONOCYTES % 6.6 % (2.0-8.0); PLATELET 181 x1000/uL (130-400); RED BLOOD CELL COUNT 3.87 mill/uL (4.2-5.4); RED CELL DISTRIBUTION WIDTH 14.6 % (11.6-14.6)
[2019-01-04 23:57] LABS: CHLORIDE 106 mEq/L (98-107)
[2019-01-05] MEDS ORDERED: POTASSIUM CHLORIDE 20MEQ TABLET SR PO NR (00:30)
[2019-01-05] MEDS ORDERED: POTASSIUM CHLORIDE INJ 40 MEQ in DEXT 5% WATER 250 ML IV NR (00:30)
[2019-01-05 04:30] VITALS: BP 139/65
[2019-01-05] MEDS ORDERED: PREG100C PO (05:11)
[2019-01-05] MEDS ORDERED: ALBU90AE INH (05:11)
[2019-01-05] MEDS ORDERED: VERA-3 PO (05:11)
[2019-01-05] MEDS ORDERED: DEXTROSE 50% WATER 50ML SYRINGE IV PRN (07:00)
[2019-01-05] MEDS: BLOOD SUGAR DIAGNOSTIC STRIP TEST SCH ×4 (07:40→20:49)
[2019-01-05 08:00] VITALS: BP 116/62
[2019-01-05] MEDS: VERAPAMIL HCL 40MG TABLET PO SCH ×3 (08:00→20:49)
[2019-01-05] MEDS ORDERED: PNEUMOCOCCAL 23-VAL P-SAC VAC 0.5 ML IM ONE (08:00)
[2019-01-05] MEDS: INSULIN LISPRO 100 UNITS/ML SUBCUT SCH ×4 (08:10→20:49)
[2019-01-05] MEDS ORDERED: VERAPAMIL HCL 120 MG PO SCH (09:00)
[2019-01-05] MEDS ORDERED: MEDICATION NOT ON FORMULARY EA (Pantoprazole Sodium (Protonix) 1 TAB) MT SCH (09:00)
[2019-01-05] MEDS ORDERED: MEDICATION NOT ON FORMULARY EA (Atorvastatin Calcium 80 MG) PO SCH (09:00)
[2019-01-05] MEDS: DOXAZOSIN MESYLATE 4MG TABLET PO SCH (09:00)
[2019-01-05] MEDS ORDERED: MEDICATION NOT ON FORMULARY EA (Sitagliptin Phosphate (Januvia) 100 MG) PO SCH (09:00)
[2019-01-05] MEDS ORDERED: MEDICATION NOT ON FORMULARY EA (Metoprolol Tartrate 25 MG) PO SCH (09:00)
[2019-01-05 09:21] LABS: CHLORIDE 108 mEq/L (98-107)
[2019-01-05 09:46] LABS: BASOPHILS % 0.3 % (0.0-2.0); EOSINOPHILS % 0.8 % (0.0-5.0); HEMATOCRIT. 38.6 % (36.0-48.0); HEMOGLOBIN. 13.4 g/dL (12.0-16.0); LYMPHOCYTES % 30.2 % (20.0-50.0); MEAN CORPUSCULAR HEMOGLOBIN 35.8 pg (28.0-32.0); MEAN PLATELET VOLUME 7.8 fl (7.4-10.4); MONOCYTES % 7.6 % (2.0-8.0); NEUTROPHILS % 61.1 % (40.0-76.0); PLATELET 187 x1000/uL (130-400); RED BLOOD CELL COUNT 3.74 mill/uL (4.2-5.4); RED CELL DISTRIBUTION WIDTH 14.5 % (11.6-14.6)
[2019-01-05] MEDS: ONDANSETRON HCL 4MG/2ML INJ IV PRN ×2 (10:49→20:46)
[2019-01-05] MEDS: PANTOPRAZOLE 40MG DR TABLET PO SCH (10:51)
[2019-01-05] MEDS: METOPROLOL TARTRATE 25MG TABLET PO SCH ×2 (10:52→20:48)
[2019-01-05] MEDS: LINAGLIPTIN 5MG TABLET PO SCH (10:52)
[2019-01-05] MEDS: TRIAMTERENE/HYDROCHLOROTHIAZIDE 37.5/25MG CAPSULE PO SCH (10:53)
[2019-01-05] MEDS ORDERED: HYDROCODONE/ACETAMINOPHEN 5/325MG TABLET PO PRN (11:00)
[2019-01-05 12:00] VITALS: BP 127/59
[2019-01-05] MEDS ORDERED: MORPHINE SULFATE 2 MG/ML CPJ (NOT FOR IM USE) IV PRN (12:00)
[2019-01-05] MEDS: PREGABALIN 50 MG CAPSULE PO SCH ×2 (12:47→20:46)
[2019-01-05] MEDS: CLOPIDOGREL 75MG TABLET PO SCH (12:48)
[2019-01-05] MEDS: ATORVASTATIN CALCIUM 40MG TABLET PO SCH (12:48)
[2019-01-05 16:00] VITALS: BP 139/80
[2019-01-05 20:00] VITALS: BP 104/57
[2019-01-05] MEDS ORDERED: ACETAMINOPHEN WITH CODEINE 300/30MG TABLET PO PRN (20:00)
[2019-01-05] MEDS ORDERED: ACETAMINOPHEN 325MG TABLET PO PRN (20:00)
[2019-01-06] VITALS: BP 97/51
[2019-01-06 04:00] VITALS: BP 113/61
[2019-01-06] MEDS: VERAPAMIL HCL 40MG TABLET PO SCH ×3 (06:00→21:10)
[2019-01-06 08:00] VITALS: BP 135/69
[2019-01-06] MEDS: PREGABALIN 50 MG CAPSULE PO SCH ×2 (08:45→21:10)
[2019-01-06] MEDS: CLOPIDOGREL 75MG TABLET PO SCH (08:46)
[2019-01-06] MEDS: DOXAZOSIN MESYLATE 4MG TABLET PO SCH (08:47)
[2019-01-06] MEDS: PANTOPRAZOLE 40MG DR TABLET PO SCH (08:47)
[2019-01-06] MEDS: LINAGLIPTIN 5MG TABLET PO SCH (08:48)
[2019-01-06] MEDS: ATORVASTATIN CALCIUM 40MG TABLET PO SCH (08:48)
[2019-01-06] MEDS: TRIAMTERENE/HYDROCHLOROTHIAZIDE 37.5/25MG CAPSULE PO SCH (08:49)
[2019-01-06] MEDS: METOPROLOL TARTRATE 25MG TABLET PO SCH ×2 (08:49→21:10)
[2019-01-06 11:46] VITALS: BP 105/60
[2019-01-06] MEDS: BLOOD SUGAR DIAGNOSTIC STRIP TEST SCH ×3 (11:47→21:00)
[2019-01-06] MEDS: INSULIN LISPRO 100 UNITS/ML SUBCUT SCH ×3 (12:03→21:00)
[2019-01-06] MEDS: ONDANSETRON HCL 4MG/2ML INJ IV PRN (12:26)
[2019-01-06] MEDS ORDERED: MECLIZINE 25MG TABLET PO NR (15:00)
[2019-01-06] MEDS ORDERED: DIPHENHYDRAMINE 50MG/ML VIAL IV NR (15:00)
[2019-01-06 16:00] VITALS: BP 125/59
[2019-01-06] MEDS ORDERED: SUMATRIPTAN SUCCINATE 6MG/0.5ML VIAL SUBCUT SCH (16:00)
[2019-01-06 18:27] LABS: CLARITY URINE CLOUDY (CLEAR); COLOR URINE YELLOW (YELLOW); KETONES URINE NEGATIVE (NEGATIVE); LEUKOCYTE ESTERASE URINE TRACE (NEGATIVE); NITRITE URINE NEGATIVE (NEGATIVE); OCCULT BLOOD URINE NEGATIVE (NEGATIVE); PROTEIN URINE NEGATIVE (NEGATIVE); SPECIFIC GRAVITY URINE 1.014 (1.005-1.030); UROBILINOGEN URINE 0.2 E.U./dL (0.2-1.0)
[2019-01-06] MEDS ORDERED: MECLIZINE 25MG TABLET PO PRN (19:00)
[2019-01-06 20:00] VITALS: BP 116/60
[2019-01-07] VITALS: BP 131/64
[2019-01-07 04:00] VITALS: BP 121/56
[2019-01-07] MEDS: BLOOD SUGAR DIAGNOSTIC STRIP TEST SCH ×3 (05:33→17:49)
[2019-01-07] MEDS: VERAPAMIL HCL 40MG TABLET PO SCH (06:08)
[2019-01-07] MEDS: INSULIN LISPRO 100 UNITS/ML SUBCUT SCH ×3 (06:08→17:49)
[2019-01-07 06:29] LABS: BASOPHILS % 0.3 % (0.0-2.0); EOSINOPHILS % 1.7 % (0.0-5.0); HEMATOCRIT. 36.4 % (36.0-48.0); HEMOGLOBIN. 12.6 g/dL (12.0-16.0); LYMPHOCYTES % 34.7 % (20.0-50.0); MEAN CORPUSCULAR HEMOGLOBIN 35.8 pg (28.0-32.0); MEAN CORPUSCULAR VOLUME 103.4 fL (81.0-99.0); MEAN PLATELET VOLUME 7.9 fl (7.4-10.4); MONOCYTES % 8.7 % (2.0-8.0); NEUTROPHILS % 54.6 % (40.0-76.0); PLATELET 177 x1000/uL (130-400); RED BLOOD CELL COUNT 3.52 mill/uL (4.2-5.4); RED CELL DISTRIBUTION WIDTH 14.3 % (11.6-14.6)
[2019-01-07 06:44] LABS: CHLORIDE 110 mEq/L (98-107)
[2019-01-07 08:00] VITALS: BP 114/49
[2019-01-07] MEDS ORDERED: FAMOTIDINE 20MG TABLET PO SCH (09:00)
[2019-01-07] MEDS ORDERED: MECLIZINE 25MG TABLET PO NR (09:00)
[2019-01-07] MEDS ORDERED: MONTELUKAST SODIUM 10MG TABLET PO NR (09:00)
[2019-01-07] MEDS ORDERED: MECLIZINE 25MG TABLET PO PRN (09:00)
[2019-01-07] MEDS: ATORVASTATIN CALCIUM 40MG TABLET PO SCH (09:40)
[2019-01-07] MEDS: PREGABALIN 50 MG CAPSULE PO SCH (09:41)
[2019-01-07] MEDS: CLOPIDOGREL 75MG TABLET PO SCH (09:41)
[2019-01-07] MEDS: LINAGLIPTIN 5MG TABLET PO SCH (09:42)
[2019-01-07] MEDS: TRIAMTERENE/HYDROCHLOROTHIAZIDE 37.5/25MG CAPSULE PO SCH (09:42)
[2019-01-07] MEDS: DOXAZOSIN MESYLATE 4MG TABLET PO SCH (09:42)
[2019-01-07] MEDS: METOPROLOL TARTRATE 25MG TABLET PO SCH (09:43)
[2019-01-07] MEDS ORDERED: LIDOCAINE 5% PATCH TOP SCH (10:00)
[2019-01-07 10:26] LABS: VITAMIN B12 SERUM 404 pg/mL (211-911)
[2019-01-07 12:00] VITALS: BP 127/74
[2019-01-07 13:40] VITALS: BP 127/74
[2019-01-07 16:00] VITALS: BP 121/48
[2019-01-07] MEDS ORDERED: IOHEXOL-350 100 ML BOTTLE ONE (17:36)
[2019-01-08] MEDS ORDERED: MONTELUKAST SODIUM 10MG TABLET PO SCH (17:00)
== END 2019-01-07 18:48 | disposition home or self-care (01) | DRG 74 ==
LOC: ER 22:55 → 7WST 01-05 00:43 → EDBEDREQTM 01-05 00:45 → EDBEDREQ 01-05 00:45 → ENRESERV 01-05 02:14
PROVIDERS: ADMIT Internal Medicine Nephrology; ATTEND Internal Medicine Nephrology
DX: B02.29 Other postherpetic nervous system involvement (principal); K21.9 Gastro-esophageal reflux disease without esophagitis; E78.5 Hyperlipidemia, unspecified; E11.51 Type 2 diabetes mellitus with diabetic peripheral angiopathy without gangrene; G90.8 Other disorders of autonomic nervous system; E87.6 Hypokalemia; J42 Unspecified chronic bronchitis; R07.89 Other chest pain; E66.9 Obesity, unspecified; E78.00 Pure hypercholesterolemia, unspecified; F17.200 Nicotine dependence, unspecified, uncomplicated; D75.89 Other specified diseases of blood and blood-forming organs; G58.8 Other specified mononeuropathies; R51 Headache; E11.59 Type 2 diabetes mellitus with other circulatory complications; F41.9 Anxiety disorder, unspecified; H93.19 Tinnitus, unspecified ear; I10 Essential (primary) hypertension; I25.10 Atherosclerotic heart disease of native coronary artery without angina pectoris; Z79.02 Long term (current) use of antithrombotics/antiplatelets; Z79.84 Long term (current) use of oral hypoglycemic drugs; Z79.899 Other long term (current) drug therapy; Z90.710 Acquired absence of both cervix and uterus; Z88.0 Allergy status to penicillin; Z88.8 Allergy status to other drugs, medicaments and biological substances; Z91.048 Other nonmedicinal substance allergy status
CPT/HCPCS: 36415; 70498; 71045; 80048; 80061; 82607; 82962; 83036; 83880; 84443; 84484; 85379; 90732; 93005; 93306; 93880; 96365; 99285; J2270; J2405; J3030; J3480; J7060; J8597; Q9967

== ENCOUNTER 2019-01-28 07:28 | Emergency (ER) | payer MEDICARE, MEDICAID ==
[~2019-01-28] VITALS: Ht 160 cm; Wt 92.0 kg
[~2019-01-28 07:28] MED LIST changes: +ALBU90AE INH; -CLOP75TA16 PO; +CLOP75TA4 PO; -HYDR-4001 MT; +PREG100C PO; +VERA120T13 PO
[2019-01-28] MEDS ORDERED: ACETAMINOPHEN 500MG TABLET PO ONE (08:00)
[2019-01-28] MEDS ORDERED: KETOROLAC 30MG/ML VIAL IM ONE (08:00)
[2019-01-28] MEDS ORDERED: KETOROLAC 15MG/ML VIAL IM ONE (08:04)
[2019-01-28 09:33] VITALS: BP 140/74
== END 2019-01-28 09:34 | disposition home or self-care (01) ==
LOC: ER 07:28
DX: M25.511 Pain in right shoulder (principal); F11.10 Opioid abuse, uncomplicated; F17.210 Nicotine dependence, cigarettes, uncomplicated
CPT/HCPCS: 73030; 96372; 99283; J1885

== ENCOUNTER 2019-02-17 00:28 | Emergency (ER) | payer MEDICARE, MEDICAID ==
[~2019-02-17] VITALS: Ht 160 cm; Wt 105.0 kg
[2019-02-17] MEDS ORDERED: ASPIRIN 81MG TABLET PO ONE (01:00)
[2019-02-17] MEDS ORDERED: VISCOUS LIDOCAINE 2% 15 ML UDC PO ONE (01:00)
[2019-02-17] MEDS ORDERED: MAGNESIUM/ALUMINUM HYDROXIDE/SIMETHICONE 30ML UDC PO ONE (01:00)
[2019-02-17 01:15] LABS: BASOPHILS % 0.8 % (0.0-2.0); EOSINOPHILS % 1.3 % (0.0-5.0); HEMOGLOBIN. 13.4 g/dL (12.0-16.0); LYMPHOCYTES % 33.3 % (20.0-50.0); MEAN CORPUSCULAR HEMOGLOBIN 35.3 pg (28.0-32.0); MEAN CORPUSCULAR VOLUME 102.4 fL (81.0-99.0); MEAN PLATELET VOLUME 7.5 fl (7.4-10.4); MONOCYTES % 7.3 % (2.0-8.0); NEUTROPHILS % 57.3 % (40.0-76.0); PLATELET 160 x1000/uL (130-400); RED BLOOD CELL COUNT 3.81 mill/uL (4.2-5.4); RED CELL DISTRIBUTION WIDTH 14.5 % (11.6-14.6)
[2019-02-17 01:21] LABS: CHLORIDE 109 mEq/L (98-107)
[2019-02-17] MEDS ORDERED: POTASSIUM CHLORIDE 20MEQ TABLET SR PO NR (02:45)
[2019-02-17] MEDS ORDERED: MECLIZINE 25MG TABLET PO ONE (03:00)
[2019-02-17 05:46] VITALS: BP 122/66
== END 2019-02-17 05:53 | disposition home or self-care (01) ==
LOC: ER 00:28
DX: R07.89 Other chest pain (principal); R42 Dizziness and giddiness; R06.02 Shortness of breath; E11.9 Type 2 diabetes mellitus without complications; E78.00 Pure hypercholesterolemia, unspecified; F17.200 Nicotine dependence, unspecified, uncomplicated; Z98.890 Other specified postprocedural states; Z79.899 Other long term (current) drug therapy; Z88.0 Allergy status to penicillin; Z88.8 Allergy status to other drugs, medicaments and biological substances; Z95.1 Presence of aortocoronary bypass graft
CPT/HCPCS: 36415; 71045; 80053; 83880; 84484; 85025; 93005; 99284; J8597

== ENCOUNTER 2019-03-13 07:53 | Inpatient (IN) | payer MEDICARE, MEDICAID ==
[~2019-03-13] VITALS: Ht 160 cm; Wt 91.6 kg
[2019-03-13 09:25] LABS: BASOPHILS % 0.5 % (0.0-2.0); EOSINOPHILS % 1.2 % (0.0-5.0); HEMATOCRIT. 38.8 % (36.0-48.0); HEMOGLOBIN. 13.4 g/dL (12.0-16.0); LYMPHOCYTES % 31.7 % (20.0-50.0); MEAN CORPUSCULAR HEMOGLOBIN 35.7 pg (28.0-32.0); MEAN CORPUSCULAR VOLUME 103.4 fL (81.0-99.0); MEAN PLATELET VOLUME 7.8 fl (7.4-10.4); MONOCYTES % 6.3 % (2.0-8.0); NEUTROPHILS % 60.3 % (40.0-76.0); PLATELET 168 x1000/uL (130-400); RED BLOOD CELL COUNT 3.76 mill/uL (4.2-5.4); RED CELL DISTRIBUTION WIDTH 14.1 % (11.6-14.6)
[2019-03-13 09:36] LABS: CHLORIDE 109 mEq/L (98-107)
[2019-03-13] MEDS ORDERED: CLONIDINE 0.1MG TABLET PO PRN (11:00)
[2019-03-13] MEDS ORDERED: ONDANSETRON HCL 4MG/2ML INJ IV PRN (11:00)
[2019-03-13] MEDS ORDERED: MORPHINE SULFATE 4 MG/ML CPJ (NOT FOR IM USE) IV ONE (11:00)
[2019-03-13] MEDS ORDERED: ACETAMINOPHEN 325MG TABLET PO PRN (11:00)
[2019-03-13] MEDS ORDERED: LORAZEPAM 2MG/ML CPJ IV PRN (11:00)
[2019-03-13] MEDS ORDERED: DOCUSATE SODIUM 100MG CAPSULE PO PRN (11:00)
[2019-03-13] MEDS ORDERED: ASPIRIN 325MG EC TABLET PO ONE (11:00)
[2019-03-13] MEDS: ENOXAPARIN 40MG/0.4ML SYR SUBCUT SCH (13:08)
[2019-03-13] MEDS ORDERED: MECLIZINE 25MG TABLET PO PRN (14:45)
[2019-03-13 16:00] VITALS: BP 135/61
[2019-03-13] MEDS ORDERED: DEXTROSE 50% WATER 50ML SYRINGE IV PRN (16:45)
[2019-03-13 16:49] VITALS: BP 165/65
[2019-03-13] MEDS ORDERED: VALA100044 PO (17:24)
[2019-03-13] MEDS ORDERED: MECL-109 MT (17:24)
[2019-03-13] MEDS: BLOOD SUGAR DIAGNOSTIC STRIP TEST SCH ×2 (17:25→21:52)
[2019-03-13] MEDS: INSULIN LISPRO 100 UNITS/ML SUBCUT SCH ×2 (17:25→21:00)
[2019-03-13] MEDS: HYDROMORPHONE HCL/PF 2MG/ML CPJ IV PRN (18:24)
[2019-03-13 20:00] VITALS: BP 115/56
[2019-03-13 21:05] LABS: CLARITY URINE CLEAR (CLEAR); COLOR URINE YELLOW (YELLOW); KETONES URINE NEGATIVE (NEGATIVE); LEUKOCYTE ESTERASE URINE 2+ (NEGATIVE); NITRITE URINE NEGATIVE (NEGATIVE); OCCULT BLOOD URINE NEGATIVE (NEGATIVE); PROTEIN URINE NEGATIVE (NEGATIVE); SPECIFIC GRAVITY URINE 1.019 (1.005-1.030)
[2019-03-13 21:25] LABS: *AMPHETAMINES SCREEN URINE NEGATIVE (NEGATIVE); *BARBITURATES SCREEN URINE NEGATIVE (NEGATIVE); *BENZODIAZEPINES SCREEN URINE NEGATIVE (NEGATIVE); *COCAINE SCREEN URINE NEGATIVE (NEGATIVE); METHADONE URINE SCREEN NEGATIVE (NEGATIVE)
[2019-03-13 21:26] LABS: CANNABINOID URINE SCREEN NEGATIVE (NEGATIVE); OPIATES URINE SCREEN PRESUMTIVE POSITIVE (NEGATIVE)
[2019-03-13 21:30] LABS: PHENCYCLIDINE URINE SCREEN NEGATIVE (NEGATIVE)
[2019-03-13] MEDS: PREGABALIN 75MG CAPSULE PO SCH (21:52)
[2019-03-13] MEDS: METOPROLOL TARTRATE 25MG TABLET PO SCH (21:52)
[2019-03-13] MEDS: DOXAZOSIN MESYLATE 4MG TABLET PO SCH (21:52)
[2019-03-13] MEDS: ATORVASTATIN CALCIUM 40MG TABLET PO SCH (21:52)
[2019-03-14] VITALS: BP 108/54
[2019-03-14] MEDS: IPRATROPIUM/ALBUTEROL 0.5-3(2.5)MG/3ML NEB INH SCH ×4 (01:47→20:34)
[2019-03-14 04:00] VITALS: BP 124/53
[2019-03-14] MEDS ORDERED: PANTOPRAZOLE 40MG DR TABLET PO SCH (07:10)
[2019-03-14] MEDS: INSULIN LISPRO 100 UNITS/ML SUBCUT SCH ×4 (07:40→21:01)
[2019-03-14] MEDS: BLOOD SUGAR DIAGNOSTIC STRIP TEST SCH ×4 (07:48→20:59)
[2019-03-14 07:55] LABS: BASOPHILS % 0.4 % (0.0-2.0); EOSINOPHILS % 1.9 % (0.0-5.0); HEMATOCRIT. 39.1 % (36.0-48.0); HEMOGLOBIN. 13.4 g/dL (12.0-16.0); LYMPHOCYTES % 40.7 % (20.0-50.0); MEAN CORPUSCULAR HEMOGLOBIN 35.4 pg (28.0-32.0); MEAN CORPUSCULAR VOLUME 103.4 fL (81.0-99.0); MEAN PLATELET VOLUME 7.9 fl (7.4-10.4); MONOCYTES % 7.5 % (2.0-8.0); NEUTROPHILS % 49.5 % (40.0-76.0); PLATELET 165 x1000/uL (130-400); RED BLOOD CELL COUNT 3.78 mill/uL (4.2-5.4); RED CELL DISTRIBUTION WIDTH 14.3 % (11.6-14.6)
[2019-03-14 08:00] VITALS: BP_SYST 113; BP_SYST 120; BP_DIAS 52; BP_DIAS 70
[2019-03-14 08:23] LABS: CHLORIDE 110 mEq/L (98-107)
[2019-03-14 08:38] LABS: HDL CHOLESTEROL 50 mg/dL (40-59); LDL CHOLESTEROL 62 mg/dL (5-100)
[2019-03-14] MEDS: VERAPAMIL HCL 120MG TABLET PO SCH (09:00)
[2019-03-14] MEDS: ENOXAPARIN 40MG/0.4ML SYR SUBCUT SCH (09:11)
[2019-03-14] MEDS: PREGABALIN 75MG CAPSULE PO SCH ×2 (09:11→20:59)
[2019-03-14] MEDS: PANTOPRAZOLE 40MG DR TABLET PO SCH ×2 (09:12→17:49)
[2019-03-14] MEDS: METOPROLOL TARTRATE 25MG TABLET PO SCH ×2 (09:12→21:00)
[2019-03-14] MEDS: HYDROMORPHONE HCL/PF 2MG/ML CPJ IV PRN ×3 (09:56→15:17)
[2019-03-14] MEDS ORDERED: LEVOFLOXACIN 500MG TABLET PO SCH (11:00)
[2019-03-14 12:00] VITALS: BP 138/68
[2019-03-14 15:26] VITALS: BP 143/68
[2019-03-14 20:00] VITALS: BP 135/42
[2019-03-14] MEDS: DOXAZOSIN MESYLATE 4MG TABLET PO SCH (20:59)
[2019-03-14] MEDS: ATORVASTATIN CALCIUM 40MG TABLET PO SCH (20:59)
[2019-03-14] MEDS: ENOXAPARIN 30MG/0.3ML SYR SUBCUT SCH (21:00)
[2019-03-15] VITALS: BP 136/59
[2019-03-15 04:00] VITALS: BP 119/56
[2019-03-15] MEDS: BLOOD SUGAR DIAGNOSTIC STRIP TEST SCH (06:19)
[2019-03-15] MEDS: PANTOPRAZOLE 40MG DR TABLET PO SCH (06:19)
[2019-03-15] MEDS: INSULIN LISPRO 100 UNITS/ML SUBCUT SCH (06:20)
[2019-03-15 08:00] VITALS: BP 124/60
[2019-03-15] MEDS: ENOXAPARIN 30MG/0.3ML SYR SUBCUT SCH (09:23)
[2019-03-15] MEDS: PREGABALIN 75MG CAPSULE PO SCH (09:25)
[2019-03-15] MEDS: VERAPAMIL HCL 120MG TABLET PO SCH (09:26)
[2019-03-15] MEDS: METOPROLOL TARTRATE 25MG TABLET PO SCH (09:29)
[2019-03-15 09:36] LABS: BASOPHILS % 0.3 % (0.0-2.0); EOSINOPHILS % 1.6 % (0.0-5.0); HEMATOCRIT. 36.8 % (36.0-48.0); HEMOGLOBIN. 12.8 g/dL (12.0-16.0); LYMPHOCYTES % 34.1 % (20.0-50.0); MEAN CORPUSCULAR VOLUME 103.2 fL (81.0-99.0); MEAN PLATELET VOLUME 8.4 fl (7.4-10.4); MONOCYTES % 9.2 % (2.0-8.0); NEUTROPHILS % 54.8 % (40.0-76.0); PLATELET 160 x1000/uL (130-400); RED BLOOD CELL COUNT 3.56 mill/uL (4.2-5.4); RED CELL DISTRIBUTION WIDTH 13.8 % (11.6-14.6)
[2019-03-15 09:47] LABS: CHLORIDE 111 mEq/L (98-107)
[2019-03-15] MEDS: IPRATROPIUM/ALBUTEROL 0.5-3(2.5)MG/3ML NEB INH SCH (09:59)
[2019-03-15 12:01] VITALS: BP 117/49
[2019-03-15 12:08] VITALS: BP 117/49
== END 2019-03-15 12:33 | disposition home or self-care (01) | DRG 205 ==
LOC: ER 07:53 → 8WST 10:58 → ENRESERV 12:59
PROVIDERS: ADMIT Internal Medicine Nephrology; ATTEND Internal Medicine Nephrology
DX: M94.0 Chondrocostal junction syndrome [Tietze] (principal); E43 Unspecified severe protein-calorie malnutrition; N39.0 Urinary tract infection, site not specified; G90.8 Other disorders of autonomic nervous system; E11.51 Type 2 diabetes mellitus with diabetic peripheral angiopathy without gangrene; R07.89 Other chest pain; E78.00 Pure hypercholesterolemia, unspecified; E78.5 Hyperlipidemia, unspecified; I10 Essential (primary) hypertension; F17.200 Nicotine dependence, unspecified, uncomplicated; Z90.710 Acquired absence of both cervix and uterus; Z68.35 Body mass index [BMI] 35.0-35.9, adult; Z88.0 Allergy status to penicillin; Z88.8 Allergy status to other drugs, medicaments and biological substances; Z91.048 Other nonmedicinal substance allergy status; Z98.891 History of uterine scar from previous surgery; Z79.84 Long term (current) use of oral hypoglycemic drugs
CPT/HCPCS: 36415; 71045; 78582; 80048; 80061; 80305; 81003; 82962; 83880; 84484; 93005; 93306; 93970; 94640; 97162; 99285; A9558; J1170; J1650; J1815; J2270; J2405; J7620; J8597

== ENCOUNTER 2019-05-20 00:19 | Inpatient (IN) | payer MEDICARE, MEDICAID ==
[~2019-05-20] VITALS: Ht 160 cm; Wt 95.3 kg
[~2019-05-20 00:19] MED LIST changes: -ALBU90AE INH; -HYDR-4001 PO; +MECL-109 MT; -ONDA4TAB5 MT; -PROT40 MT; +VALA100044 PO
[2019-05-20] MEDS ORDERED: NITROGLYCERIN OINT 1GM/INCH UDPKT TD ONE (01:00)
[2019-05-20] MEDS ORDERED: ASPIRIN 81MG TABLET PO ONE (01:00)
[2019-05-20] MEDS ORDERED: CLONIDINE 0.1MG TABLET PO PRN (01:45)
[2019-05-20] MEDS ORDERED: ONDANSETRON HCL 4MG/2ML INJ IV PRN ×2 (01:45→09:00)
[2019-05-20] MEDS ORDERED: MECLIZINE 25MG TABLET PO PRN (01:45)
[2019-05-20] MEDS ORDERED: ACETAMINOPHEN 325MG TABLET PO PRN (01:45)
[2019-05-20 01:52] LABS: CHLORIDE 108 mEq/L (98-107)
[2019-05-20 02:18] LABS: BASOPHILS % 0.5 % (0.0-2.0); EOSINOPHILS % 1.5 % (0.0-5.0); HEMATOCRIT. 42.6 % (36.0-48.0); HEMOGLOBIN. 14.6 g/dL (12.0-16.0); LYMPHOCYTES % 37.9 % (20.0-50.0); MEAN CORPUSCULAR HEMOGLOBIN 35.2 pg (28.0-32.0); MEAN CORPUSCULAR VOLUME 102.6 fL (81.0-99.0); MEAN PLATELET VOLUME 8.3 fl (7.4-10.4); MONOCYTES % 6.6 % (2.0-8.0); NEUTROPHILS % 53.5 % (40.0-76.0); PLATELET 185 x1000/uL (130-400); RED BLOOD CELL COUNT 4.15 mill/uL (4.2-5.4); RED CELL DISTRIBUTION WIDTH 13.9 % (11.6-14.6)
[2019-05-20] MEDS: HYDROCODONE/ACETAMINOPHEN 5/325MG TABLET PO PRN ×2 (02:43→20:57)
[2019-05-20 08:30] VITALS: BP 145/60
[2019-05-20] MEDS ORDERED: METOPROLOL TARTRATE 25MG TABLET PO SCH (09:00)
[2019-05-20] MEDS ORDERED: TRIAMTERENE/HYDROCHLOROTHIAZIDE 37.5/25MG CAPSULE PO SCH (09:00)
[2019-05-20] MEDS ORDERED: DOXAZOSIN MESYLATE 4MG TABLET PO SCH (09:00)
[2019-05-20] MEDS ORDERED: ZOLPIDEM TARTRATE 5MG TABLET PO PRN (09:00)
[2019-05-20] MEDS ORDERED: CLOPIDOGREL 75MG TABLET PO SCH (09:00)
[2019-05-20] MEDS ORDERED: DEXTROSE 50% WATER 50ML SYRINGE IV PRN (10:00)
[2019-05-20] MEDS: METOPROLOL TARTRATE 25MG TABLET PO SCH ×2 (10:52→21:22)
[2019-05-20] MEDS: OMEPRAZOLE 20MG CAPSULE EXTENDED RELEASE PO SCH (10:52)
[2019-05-20] MEDS: LINAGLIPTIN 5MG TABLET PO SCH (10:53)
[2019-05-20] MEDS: MECLIZINE 25MG TABLET PO SCH ×3 (10:53→21:21)
[2019-05-20] MEDS: ENOXAPARIN 30MG/0.3ML SYR SUBCUT SCH ×2 (10:56→21:21)
[2019-05-20] MEDS: TRIAMTERENE/HYDROCHLOROTHIAZIDE 37.5/25MG CAPSULE PO SCH (11:37)
[2019-05-20] MEDS: BLOOD SUGAR DIAGNOSTIC STRIP TEST SCH ×3 (11:37→21:22)
[2019-05-20] MEDS: PREGABALIN 50 MG CAPSULE PO SCH ×2 (11:38→21:21)
[2019-05-20] MEDS: DOXAZOSIN MESYLATE 4MG TABLET PO SCH (11:38)
[2019-05-20] MEDS: CLOPIDOGREL 75MG TABLET PO SCH (11:39)
[2019-05-20] MEDS: INSULIN LISPRO 100 UNITS/ML SUBCUT SCH ×3 (11:40→21:00)
[2019-05-20 12:00] VITALS: BP 123/58
[2019-05-20 12:19] LABS: FOLIC ACID (FOLATE) SERUM 10.2 ng/mL (>5.38)
[2019-05-20 16:00] VITALS: BP 114/50
[2019-05-20 18:33] VITALS: BP 114/50
[2019-05-20 20:15] VITALS: BP 137/64
[2019-05-20] MEDS ORDERED: ATORVASTATIN CALCIUM 40MG TABLET PO SCH (21:00)
[2019-05-20] MEDS: ATORVASTATIN CALCIUM 10MG TABLET PO SCH (21:21)
[2019-05-21 00:20] VITALS: BP 148/67
[2019-05-21 00:55] LABS: CREATINE KINASE MB FRACTION < 1.0 ng/mL (0.5-3.6)
[2019-05-21 04:20] VITALS: BP 116/60
[2019-05-21] MEDS: OMEPRAZOLE 20MG CAPSULE EXTENDED RELEASE PO SCH (06:31)
[2019-05-21] MEDS: MECLIZINE 25MG TABLET PO SCH ×3 (06:31→21:55)
[2019-05-21 06:41] LABS: BASOPHILS % 0.4 % (0.0-2.0); EOSINOPHILS % 2.4 % (0.0-5.0); HEMATOCRIT. 37.1 % (36.0-48.0); HEMOGLOBIN. 12.7 g/dL (12.0-16.0); LYMPHOCYTES % 48.5 % (20.0-50.0); MEAN CORPUSCULAR VOLUME 102.4 fL (81.0-99.0); MEAN PLATELET VOLUME 8.4 fl (7.4-10.4); NEUTROPHILS % 40.7 % (40.0-76.0); PLATELET 160 x1000/uL (130-400); RED BLOOD CELL COUNT 3.62 mill/uL (4.2-5.4); RED CELL DISTRIBUTION WIDTH 13.9 % (11.6-14.6)
[2019-05-21 06:42] LABS: CHLORIDE 109 mEq/L (98-107)
[2019-05-21] MEDS: INSULIN LISPRO 100 UNITS/ML SUBCUT SCH ×4 (07:40→21:00)
[2019-05-21] MEDS: BLOOD SUGAR DIAGNOSTIC STRIP TEST SCH ×4 (07:56→21:42)
[2019-05-21 08:00] VITALS: BP 123/56
[2019-05-21] MEDS: METOPROLOL TARTRATE 25MG TABLET PO SCH ×2 (09:00→21:55)
[2019-05-21] MEDS: DOXAZOSIN MESYLATE 4MG TABLET PO SCH (09:04)
[2019-05-21] MEDS: TRIAMTERENE/HYDROCHLOROTHIAZIDE 37.5/25MG CAPSULE PO SCH (09:04)
[2019-05-21] MEDS: PREGABALIN 50 MG CAPSULE PO SCH ×2 (09:05→21:55)
[2019-05-21] MEDS: LINAGLIPTIN 5MG TABLET PO SCH (09:05)
[2019-05-21] MEDS: CLOPIDOGREL 75MG TABLET PO SCH (09:05)
[2019-05-21] MEDS: ENOXAPARIN 30MG/0.3ML SYR SUBCUT SCH ×2 (09:06→21:54)
[2019-05-21] MEDS ORDERED: MAGNESIUM 2 G PREMIX 50 ML IV PRN (09:45)
[2019-05-21] MEDS ORDERED: POTASSIUM CHLORIDE 20MEQ TABLET SR PO NR (10:00)
[2019-05-21 16:00] VITALS: BP 126/61
[2019-05-21] MEDS ORDERED: IOHEXOL-350 100 ML BOTTLE ONE (17:31)
[2019-05-21] MEDS: ATORVASTATIN CALCIUM 10MG TABLET PO SCH (21:54)
[2019-05-22] VITALS: BP 138/54
[2019-05-22 04:00] VITALS: BP 137/62
[2019-05-22 05:38] LABS: CHLORIDE 108 mEq/L (98-107)
[2019-05-22] MEDS: OMEPRAZOLE 20MG CAPSULE EXTENDED RELEASE PO SCH (06:48)
[2019-05-22] MEDS: MECLIZINE 25MG TABLET PO SCH (06:50)
[2019-05-22] MEDS: HYDROCODONE/ACETAMINOPHEN 5/325MG TABLET PO PRN (06:50)
[2019-05-22] MEDS: INSULIN LISPRO 100 UNITS/ML SUBCUT SCH (06:57)
[2019-05-22] MEDS: BLOOD SUGAR DIAGNOSTIC STRIP TEST SCH ×2 (06:57→12:10)
[2019-05-22 08:00] VITALS: BP 135/71
[2019-05-22 08:40] LABS: BG BASE EXCESS 0.2 mmol/L (-2.0-2.0); BG CARBOXYHEMOGLOBIN 0.8 % (0.5-1.5); BG DEOXYHEMOGLOBIN 5.9 % (0.0-5.0); BG FRACTION INSPIRED OXYGEN 21; BG METHEMOGLOBIN 0.1 % (0.0-1.5); BG OXYHEMOGLOBIN 93.2 % (94.0-97.0); BG PCO2 40.9 mmHg (35.0-45.0); BG PH 7.404 (7.350-7.450); BG SAMPLE SITE RIGHT BRACHIAL; BG TOTAL HEMOGLOBIN 13.7 g/dL (12.0-18.0); BG VENT MODE ROOM AIR
[2019-05-22] MEDS ORDERED: IPRATROPIUM/ALBUTEROL 0.5-3(2.5)MG/3ML NEB HHN NR (08:45)
[2019-05-22] MEDS ORDERED: IPRATROPIUM/ALBUTEROL 0.5-3(2.5)MG/3ML NEB HHN PRN (08:45)
[2019-05-22] MEDS: LINAGLIPTIN 5MG TABLET PO SCH (09:11)
[2019-05-22] MEDS: DOXAZOSIN MESYLATE 4MG TABLET PO SCH (09:11)
[2019-05-22] MEDS: METOPROLOL TARTRATE 25MG TABLET PO SCH (09:11)
[2019-05-22] MEDS: CLOPIDOGREL 75MG TABLET PO SCH (09:11)
[2019-05-22] MEDS: ENOXAPARIN 30MG/0.3ML SYR SUBCUT SCH (09:12)
[2019-05-22] MEDS: PREGABALIN 50 MG CAPSULE PO SCH (09:12)
[2019-05-22] MEDS: TRIAMTERENE/HYDROCHLOROTHIAZIDE 37.5/25MG CAPSULE PO SCH (09:29)
[2019-05-22 11:51] VITALS: BP 139/67
[2019-05-22 11:55] VITALS: BP 139/67
== END 2019-05-22 12:20 | disposition home or self-care (01) | DRG 205 ==
LOC: ER 00:19 → 8WST 03:22 → EDBEDREQTM 03:26 → EDBEDREQ 03:26 → ENRESERV 07:01
PROVIDERS: ADMIT Internal Medicine Nephrology; ATTEND Internal Medicine Nephrology
DX: M94.0 Chondrocostal junction syndrome [Tietze] (principal); E43 Unspecified severe protein-calorie malnutrition; E87.6 Hypokalemia; E11.51 Type 2 diabetes mellitus with diabetic peripheral angiopathy without gangrene; E66.9 Obesity, unspecified; D75.89 Other specified diseases of blood and blood-forming organs; E78.00 Pure hypercholesterolemia, unspecified; K29.70 Gastritis, unspecified, without bleeding; E78.5 Hyperlipidemia, unspecified; I65.29 Occlusion and stenosis of unspecified carotid artery; E87.8 Other disorders of electrolyte and fluid balance, not elsewhere classified; F17.210 Nicotine dependence, cigarettes, uncomplicated; I11.9 Hypertensive heart disease without heart failure; R00.1 Bradycardia, unspecified; I48.91 Unspecified atrial fibrillation; Z79.02 Long term (current) use of antithrombotics/antiplatelets; Z79.84 Long term (current) use of oral hypoglycemic drugs; Z79.899 Other long term (current) drug therapy; Z90.710 Acquired absence of both cervix and uterus; Z68.37 Body mass index [BMI] 37.0-37.9, adult; Z88.0 Allergy status to penicillin; Z88.8 Allergy status to other drugs, medicaments and biological substances; Z91.048 Other nonmedicinal substance allergy status; Z59.0 Homelessness
CPT/HCPCS: 36415; 36600; 71045; 71275; 80048; 80061; 82375; 82553; 82607; 82746; 82805; 82962; 83036; 83735; 83880; 84484; 93005; 94640; 97162; 99285; J1650; J1815; J2405; J7040; J7620; J8597; Q9967

== ENCOUNTER 2020-02-15 22:41 | Inpatient (IN) | payer MEDICARE, MEDICAID ==
[~2020-02-15] VITALS: Ht 160 cm; Wt 98.4 kg
[~2020-02-15 22:41] MED LIST changes: -MECL-109 MT; +MECL-159 MT; -VALA100044 PO
[2020-02-15] MEDS ORDERED: ONDANSETRON HCL 4MG/2ML INJ IV STA (23:18)
[2020-02-15] MEDS ORDERED: VISCOUS LIDOCAINE 2% 15 ML UDC PO ONE (23:30)
[2020-02-15] MEDS ORDERED: ASPIRIN 81MG TABLET PO ONE (23:30)
[2020-02-15] MEDS ORDERED: MAGNESIUM/ALUMINUM HYDROXIDE/SIMETHICONE 30ML UDC PO ONE (23:30)
[2020-02-15 23:53] LABS: BASOPHILS % 0.5 % (0.0-2.0); EOSINOPHILS % 1.3 % (0.0-5.0); HEMATOCRIT. 41.3 % (36.0-48.0); HEMOGLOBIN. 14.6 g/dL (12.0-16.0); LYMPHOCYTES % 27.4 % (20.0-50.0); MEAN CORPUSCULAR HEMOGLOBIN 35.8 pg (28.0-32.0); MEAN CORPUSCULAR VOLUME 101.7 fL (81.0-99.0); MEAN PLATELET VOLUME 7.7 fl (7.4-10.4); MONOCYTES % 7.9 % (2.0-8.0); NEUTROPHILS % 62.9 % (40.0-76.0); PLATELET 196 x1000/uL (130-400); RED BLOOD CELL COUNT 4.06 mill/uL (4.2-5.4); RED CELL DISTRIBUTION WIDTH 14.1 % (11.6-14.6)
[2020-02-15 23:56] LABS: CHLORIDE 110 mEq/L (98-107)
[2020-02-15 23:59] LABS: PROTHROMBIN TIME 10.5 sec (9.6-11.0)
[2020-02-16] MEDS ORDERED: KETOROLAC 15MG/ML VIAL IV ONE (00:30)
[2020-02-16] MEDS ORDERED: MORPHINE SULFATE 2 MG/ML CPJ (NOT FOR IM USE) IV ONE (00:30)
[2020-02-16] MEDS ORDERED: NITROGLYCERIN 0.4MG TABLET SL SL ONE (00:30)
[2020-02-16] MEDS ORDERED: POTASSIUM CHLORIDE 20MEQ TABLET SR PO NR (05:15)
[2020-02-16] MEDS ORDERED: DIPHENHYDRAMINE 50MG/ML VIAL IV PRN (08:45)
[2020-02-16] MEDS ORDERED: ACETAMINOPHEN 325MG TABLET PO PRN (08:45)
[2020-02-16] MEDS ORDERED: DOCUSATE SODIUM 100MG CAPSULE PO PRN (08:45)
[2020-02-16] MEDS ORDERED: DEXTROSE 50% WATER 50ML SYRINGE IV PRN (09:15)
[2020-02-16 10:46] LABS: PHOSPHORUS 2.6 mg/dL (2.5-4.9)
[2020-02-16] MEDS ORDERED: HYDROCODONE/ACETAMINOPHEN 5/325MG TABLET PO PRN (14:30)
[2020-02-16] MEDS: INSULIN LISPRO 100 UNITS/ML SUBCUT SCH ×3 (14:41→21:00)
[2020-02-16] MEDS: BLOOD SUGAR DIAGNOSTIC STRIP TEST SCH ×3 (14:41→21:45)
[2020-02-16] MEDS: METOPROLOL TARTRATE 25MG TABLET PO SCH ×2 (14:46→23:00)
[2020-02-16] MEDS: CLOPIDOGREL 75MG TABLET PO SCH (14:46)
[2020-02-16] MEDS: MECLIZINE 25MG TABLET PO PRN (14:48)
[2020-02-16 15:04] LABS: CREATINE KINASE 67 IU/L (26-192)
[2020-02-16 15:05] LABS: CREATINE KINASE MB FRACTION < 1.0 ng/mL (0.5-3.6)
[2020-02-16] MEDS: ONDANSETRON HCL 4MG/2ML INJ IV PRN (16:58)
[2020-02-16] MEDS: DOXAZOSIN MESYLATE 4MG TABLET PO SCH (21:00)
[2020-02-16] MEDS: ATORVASTATIN CALCIUM 40MG TABLET PO SCH (21:00)
[2020-02-16 23:56] LABS: CREATINE KINASE 50 IU/L (26-192)
[2020-02-16 23:57] LABS: CREATINE KINASE MB FRACTION < 1.0 ng/mL (0.5-3.6)
[2020-02-17 00:11] VITALS: BP 156/70
[2020-02-17] MEDS: ONDANSETRON HCL 4MG/2ML INJ IV PRN (01:45)
[2020-02-17] MEDS: MECLIZINE 25MG TABLET PO PRN (01:45)
[2020-02-17 04:00] VITALS: BP 167/66
[2020-02-17] MEDS: PANTOPRAZOLE 40MG DR TABLET PO SCH (06:02)
[2020-02-17] MEDS: BLOOD SUGAR DIAGNOSTIC STRIP TEST SCH ×4 (07:23→21:52)
[2020-02-17 07:48] LABS: BASOPHILS % 0.5 % (0.0-2.0); EOSINOPHILS % 1.5 % (0.0-5.0); HEMATOCRIT. 39.6 % (36.0-48.0); HEMOGLOBIN. 13.6 g/dL (12.0-16.0); LYMPHOCYTES % 30.8 % (20.0-50.0); MEAN CORPUSCULAR HEMOGLOBIN 35.4 pg (28.0-32.0); MEAN CORPUSCULAR VOLUME 103.1 fL (81.0-99.0); MEAN PLATELET VOLUME 7.8 fl (7.4-10.4); MONOCYTES % 6.8 % (2.0-8.0); NEUTROPHILS % 60.4 % (40.0-76.0); PLATELET 174 x1000/uL (130-400); RED BLOOD CELL COUNT 3.84 mill/uL (4.2-5.4)
[2020-02-17 08:00] VITALS: BP 114/69
[2020-02-17] MEDS ORDERED: OMEPRAZOLE 20MG CAPSULE EXTENDED RELEASE PO NR (08:30)
[2020-02-17] MEDS ORDERED: REGADENOSON 0.4 MG/5 ML IV ONE (08:30)
[2020-02-17 08:34] LABS: CHLORIDE 110 mEq/L (98-107)
[2020-02-17 08:41] LABS: LDL CHOLESTEROL 59 mg/dL (5-100)
[2020-02-17 08:42] LABS: HDL CHOLESTEROL 46 mg/dL (40-59)
[2020-02-17] MEDS ORDERED: FLUTICASONE/VILANTEROL 200-25 BLST.W.DEV ORI SCH (09:00)
[2020-02-17] MEDS ORDERED: BUDESONIDE 0.5MG/2ML NEB HHN SCH (09:00)
[2020-02-17] MEDS: CLOPIDOGREL 75MG TABLET PO SCH (09:04)
[2020-02-17] MEDS: METOPROLOL TARTRATE 25MG TABLET PO SCH ×2 (09:09→21:00)
[2020-02-17] MEDS: INSULIN LISPRO 100 UNITS/ML SUBCUT SCH ×4 (09:12→21:52)
[2020-02-17 11:14] LABS: BG BASE EXCESS -0.3 mmol/L (-2.0-2.0); BG CARBOXYHEMOGLOBIN 0.3 % (0.5-1.5); BG DEOXYHEMOGLOBIN 4.8 % (0.0-5.0); BG FRACTION INSPIRED OXYGEN 21; BG HCO3 ACT 24.1 mmol/L (22.0-26.0); BG METHEMOGLOBIN 0.1 % (0.0-1.5); BG OXYGEN SATURATION 95.2 % (92.0-98.5); BG OXYHEMOGLOBIN 94.8 % (94.0-97.0); BG PCO2 38.7 mmHg (35.0-45.0); BG PH 7.413 (7.350-7.450); BG SAMPLE SITE RIGHT BRACHIAL; BG TOTAL HEMOGLOBIN 13.1 g/dL (12.0-18.0); BG VENT MODE ROOM AIR
[2020-02-17 12:00] VITALS: BP 154/67
[2020-02-17] MEDS: HYDRALAZINE HCL 25MG TABLET PO SCH ×2 (14:08→21:53)
[2020-02-17 16:00] VITALS: BP_SYST 106; BP_SYST 113; BP_SYST 115; BP_DIAS 43; BP_DIAS 57; BP_DIAS 61
[2020-02-17 20:29] VITALS: BP 109/74
[2020-02-17] MEDS: DOXAZOSIN MESYLATE 4MG TABLET PO SCH (21:00)
[2020-02-17] MEDS: OMEPRAZOLE 20MG CAPSULE EXTENDED RELEASE PO SCH (21:51)
[2020-02-17] MEDS: ATORVASTATIN CALCIUM 40MG TABLET PO SCH (21:51)
[2020-02-18 00:57] VITALS: BP 123/64
[2020-02-18 04:00] VITALS: BP 146/64
[2020-02-18] MEDS: OMEPRAZOLE 20MG CAPSULE EXTENDED RELEASE PO SCH (06:39)
[2020-02-18] MEDS: PANTOPRAZOLE 40MG DR TABLET PO SCH (06:39)
[2020-02-18] MEDS: BLOOD SUGAR DIAGNOSTIC STRIP TEST SCH ×2 (06:40→12:20)
[2020-02-18] MEDS: HYDRALAZINE HCL 25MG TABLET PO SCH (06:40)
[2020-02-18] MEDS: INSULIN LISPRO 100 UNITS/ML SUBCUT SCH ×2 (07:50→12:50)
[2020-02-18] MEDS ORDERED: MECLIZINE 25MG TABLET PO PRN (08:30)
[2020-02-18] MEDS ORDERED: TRIAMTERENE/HYDROCHLOROTHIAZIDE 37.5/25MG CAPSULE PO SCH (09:00)
[2020-02-18] MEDS ORDERED: METOPROLOL TARTRATE 25MG TABLET PO SCH (09:00)
[2020-02-18] MEDS ORDERED: CLOPIDOGREL 75MG TABLET PO SCH (09:00)
[2020-02-18] MEDS ORDERED: DOXAZOSIN MESYLATE 4MG TABLET PO SCH (09:00)
[2020-02-18] MEDS: ALBUTEROL (0.083%) 2.5MG/3ML NEB HHN SCH ×2 (09:13→14:29)
[2020-02-18 10:03] VITALS: BP 118/60
[2020-02-18] MEDS ORDERED: GADOBENATE DIMEGLUMINE 529 MG/ML 10ML IV ONE (10:04)
[2020-02-18] MEDS: CLOPIDOGREL 75MG TABLET PO SCH (10:20)
[2020-02-18] MEDS: METOPROLOL TARTRATE 25MG TABLET PO SCH (10:21)
[2020-02-18] MEDS: MECLIZINE 25MG TABLET PO PRN (11:59)
[2020-02-18 12:29] VITALS: BP 131/51
[2020-02-18 15:32] VITALS: BP 131/51
[2020-02-18 16:30] VITALS: BP 136/60
== END 2020-02-18 16:15 | disposition home or self-care (01) | DRG 206 ==
LOC: ER 22:41 → MICUSO 02-16 00:44 → ENRESERV 02-16 22:32 → 6WST 02-17 00:11
PROVIDERS: ADMIT Internal Medicine Nephrology; ATTEND Internal Medicine Nephrology
DX: M94.0 Chondrocostal junction syndrome [Tietze] (principal); E46 Unspecified protein-calorie malnutrition; J44.9 Chronic obstructive pulmonary disease, unspecified; E78.5 Hyperlipidemia, unspecified; F41.1 Generalized anxiety disorder; E66.9 Obesity, unspecified; E11.51 Type 2 diabetes mellitus with diabetic peripheral angiopathy without gangrene; E78.00 Pure hypercholesterolemia, unspecified; E87.6 Hypokalemia; I11.9 Hypertensive heart disease without heart failure; F17.210 Nicotine dependence, cigarettes, uncomplicated; E11.42 Type 2 diabetes mellitus with diabetic polyneuropathy; I25.10 Atherosclerotic heart disease of native coronary artery without angina pectoris; Z68.38 Body mass index [BMI] 38.0-38.9, adult; Z88.0 Allergy status to penicillin; Z88.8 Allergy status to other drugs, medicaments and biological substances; Z79.899 Other long term (current) drug therapy; Z95.820 Peripheral vascular angioplasty status with implants and grafts; Z90.710 Acquired absence of both cervix and uterus; Z86.73 Personal history of transient ischemic attack (TIA), and cerebral infarction without residual deficits; Z71.3 Dietary counseling and surveillance; K21.9 Gastro-esophageal reflux disease without esophagitis; I73.9 Peripheral vascular disease, unspecified
CPT/HCPCS: 36415; 36600; 70549; 71045; 80048; 80053; 80061; 82375; 82550; 82553; 82805; 82962; 83036; 83735; 83880; 84100; 84484; 85025; 93005; 93970; 94640; 97162; 99285; A9577; J1815; J1885; J2405; J7626; J8597

== ENCOUNTER 2021-02-26 21:00 | Inpatient (IN) | payer MEDICARE, MEDICAID ==
[~2021-02-26] VITALS: Ht 160 cm; Wt 106.3 kg
[~2021-02-26 21:00] MED LIST changes: -ATOR-2 PO; +CYAN100T43 PO; +LIP40 PO; -METO25TA6 PO; +METO75TA PO; +OMEP20CA14 PO; +ONDA4VIA22 IV; +PYRI-8 PO
[2021-02-26] MEDS ORDERED: NITROGLYCERIN OINT 1GM/INCH UDPKT TD ONE (22:00)
[2021-02-26] MEDS ORDERED: ASPIRIN 81MG TABLET PO ONE (22:00)
[2021-02-26 22:28] LABS: BASOPHILS % 0.5 % (0.0-2.0); EOSINOPHILS % 1.2 % (0.0-5.0); HEMATOCRIT. 40.7 % (36.0-48.0); HEMOGLOBIN. 13.9 g/dL (12.0-16.0); LYMPHOCYTES % 22.8 % (20.0-50.0); MEAN CORPUSCULAR HEMOGLOBIN 34.4 pg (28.0-32.0); MEAN CORPUSCULAR VOLUME 100.9 fL (81.0-99.0); MEAN PLATELET VOLUME 7.6 fl (7.4-10.4); MONOCYTES % 8.9 % (2.0-8.0); NEUTROPHILS % 66.6 % (40.0-76.0); PLATELET 168 x1000/uL (130-400); RED BLOOD CELL COUNT 4.03 mill/uL (4.2-5.4); RED CELL DISTRIBUTION WIDTH 13.9 % (11.6-14.6)
[2021-02-26 22:36] LABS: CHLORIDE 108 mEq/L (98-107)
[2021-02-26 22:39] LABS: PROTHROMBIN TIME 10.7 sec (9.6-11.0)
[2021-02-26] MEDS ORDERED: POTASSIUM CHLORIDE 20MEQ TABLET SR PO NR (23:00)
[2021-02-27] MEDS ORDERED: ENOXAPARIN 40MG/0.4ML SYR SUBCUT SCH (07:30)
[2021-02-27] MEDS ORDERED: ACETAMINOPHEN 325MG TABLET PO PRN (07:30)
[2021-02-27] MEDS ORDERED: CLONIDINE 0.1MG TABLET PO PRN (07:30)
[2021-02-27] MEDS ORDERED: MAGNESIUM/ALUMINUM HYDROXIDE/SIMETHICONE 30ML UDC PO PRN (07:30)
[2021-02-27] MEDS ORDERED: DOCUSATE SODIUM 100MG CAPSULE PO PRN (07:30)
[2021-02-27] MEDS ORDERED: IPRATROPIUM/ALBUTEROL 0.5-3(2.5)MG/3ML NEB HHN PRN (07:30)
[2021-02-27 09:15] VITALS: BP 133/70
[2021-02-27 09:20] VITALS: BP 133/70
[2021-02-27] MEDS: ASPIRIN 81MG EC TABLET PO SCH (10:22)
[2021-02-27] MEDS: ENOXAPARIN 30MG/0.3ML SYR SUBCUT SCH ×2 (10:23→20:41)
[2021-02-27] MEDS ORDERED: PNEUMOCOCCAL 23-VAL P-SAC VAC 0.5 ML IM ONE (11:30)
[2021-02-27 12:00] VITALS: BP 153/74
[2021-02-27 12:08] LABS: CHLORIDE 109 mEq/L (98-107)
[2021-02-27 12:14] LABS: PHOSPHORUS 2.5 mg/dL (2.5-4.9)
[2021-02-27] MEDS ORDERED: DIPHENHYDRAMINE 50MG/ML VIAL IV PRN (13:15)
[2021-02-27] MEDS ORDERED: DEXTROSE 50% WATER 50ML SYRINGE IV PRN (14:45)
[2021-02-27] MEDS: CLOPIDOGREL 75MG TABLET PO SCH (15:50)
[2021-02-27] MEDS: DOXAZOSIN MESYLATE 4MG TABLET PO SCH (15:50)
[2021-02-27] MEDS: TRIAMTERENE/HYDROCHLOROTHIAZIDE 37.5/25MG CAPSULE PO SCH (15:50)
[2021-02-27 16:00] VITALS: BP 132/52
[2021-02-27] MEDS: ONDANSETRON HCL 4MG/2ML INJ IV PRN ×2 (16:06→23:17)
[2021-02-27] MEDS: LEVOFLOXACIN 250MG PREMIX 50 ML IV SCH (16:32)
[2021-02-27] MEDS: INSULIN LISPRO 100 UNITS/ML SUBCUT SCH ×2 (17:03→20:55)
[2021-02-27] MEDS: BLOOD SUGAR DIAGNOSTIC STRIP TEST SCH ×2 (17:03→20:47)
[2021-02-27 20:00] VITALS: BP 130/54
[2021-02-27] MEDS: METOPROLOL TARTRATE 25MG TABLET PO SCH (20:40)
[2021-02-27] MEDS: ATORVASTATIN CALCIUM 40MG TABLET PO SCH (20:40)
[2021-02-27] MEDS: MECLIZINE 25MG TABLET PO PRN (20:44)
[2021-02-27] MEDS ORDERED: METOPROLOL TARTRATE 50MG TABLET PO SCH (21:00)
[2021-02-27] MEDS: VERAPAMIL HCL 80 MG TABLET PO SCH (21:33)
[2021-02-28] VITALS: BP 144/69
[2021-02-28 04:00] VITALS: BP 133/61
[2021-02-28 06:06] LABS: CHLORIDE 106 mEq/L (98-107)
[2021-02-28 06:08] LABS: BASOPHILS % 0.3 % (0.0-2.0); EOSINOPHILS % 1.4 % (0.0-5.0); HEMATOCRIT. 40.2 % (36.0-48.0); HEMOGLOBIN. 13.8 g/dL (12.0-16.0); LYMPHOCYTES % 26.9 % (20.0-50.0); MEAN CORPUSCULAR HEMOGLOBIN 34.8 pg (28.0-32.0); MEAN CORPUSCULAR VOLUME 101.9 fL (81.0-99.0); MEAN PLATELET VOLUME 8.2 fl (7.4-10.4); MONOCYTES % 7.7 % (2.0-8.0); NEUTROPHILS % 63.7 % (40.0-76.0); PLATELET 159 x1000/uL (130-400); RED BLOOD CELL COUNT 3.95 mill/uL (4.2-5.4); RED CELL DISTRIBUTION WIDTH 13.6 % (11.6-14.6)
[2021-02-28 06:14] LABS: LDL CHOLESTEROL 54 mg/dL (5-100)
[2021-02-28 06:15] LABS: HDL CHOLESTEROL 51 mg/dL (40-59)
[2021-02-28] MEDS: VERAPAMIL HCL 80 MG TABLET PO SCH ×3 (06:26→21:13)
[2021-02-28] MEDS: BLOOD SUGAR DIAGNOSTIC STRIP TEST SCH ×3 (06:27→21:12)
[2021-02-28] MEDS: INSULIN LISPRO 100 UNITS/ML SUBCUT SCH ×3 (06:42→21:12)
[2021-02-28 08:00] VITALS: BP 144/60
[2021-02-28] MEDS: TRIAMTERENE/HYDROCHLOROTHIAZIDE 37.5/25MG CAPSULE PO SCH (09:53)
[2021-02-28] MEDS: CLOPIDOGREL 75MG TABLET PO SCH (09:53)
[2021-02-28] MEDS: METOPROLOL TARTRATE 25MG TABLET PO SCH ×2 (09:53→21:13)
[2021-02-28] MEDS: ASPIRIN 81MG EC TABLET PO SCH (09:53)
[2021-02-28] MEDS: DOXAZOSIN MESYLATE 4MG TABLET PO SCH (09:53)
[2021-02-28] MEDS: ENOXAPARIN 30MG/0.3ML SYR SUBCUT SCH ×2 (09:53→21:12)
[2021-02-28] MEDS: ONDANSETRON HCL 4MG/2ML INJ IV PRN ×2 (11:52→19:58)
[2021-02-28 12:00] VITALS: BP 148/59
[2021-02-28] MEDS ORDERED: REGADENOSON 0.4 MG/5 ML IV NR (15:00)
[2021-02-28] MEDS: LEVOFLOXACIN 250MG PREMIX 50 ML IV SCH (15:28)
[2021-02-28 16:00] VITALS: BP 119/68
[2021-02-28 20:00] VITALS: BP 144/99
[2021-02-28] MEDS: ATORVASTATIN CALCIUM 40MG TABLET PO SCH (21:13)
[2021-03-01] VITALS: BP 141/61
[2021-03-01 04:00] VITALS: BP 139/79
[2021-03-01] MEDS: ONDANSETRON HCL 4MG/2ML INJ IV PRN ×3 (05:57→20:38)
[2021-03-01] MEDS: VERAPAMIL HCL 80 MG TABLET PO SCH ×3 (05:57→22:14)
[2021-03-01] MEDS: MECLIZINE 25MG TABLET PO PRN (06:03)
[2021-03-01] MEDS: BLOOD SUGAR DIAGNOSTIC STRIP TEST SCH ×4 (06:30→20:19)
[2021-03-01] MEDS: INSULIN LISPRO 100 UNITS/ML SUBCUT SCH ×4 (06:30→20:19)
[2021-03-01 06:39] LABS: CHLORIDE 105 mEq/L (98-107)
[2021-03-01 06:41] LABS: BASOPHILS % 0.4 % (0.0-2.0); EOSINOPHILS % 1.6 % (0.0-5.0); HEMATOCRIT. 39.6 % (36.0-48.0); HEMOGLOBIN. 13.7 g/dL (12.0-16.0); LYMPHOCYTES % 33.1 % (20.0-50.0); MEAN CORPUSCULAR HEMOGLOBIN 34.9 pg (28.0-32.0); MEAN PLATELET VOLUME 7.7 fl (7.4-10.4); MONOCYTES % 9.8 % (2.0-8.0); NEUTROPHILS % 55.1 % (40.0-76.0); PLATELET 182 x1000/uL (130-400); RED BLOOD CELL COUNT 3.92 mill/uL (4.2-5.4); RED CELL DISTRIBUTION WIDTH 13.6 % (11.6-14.6)
[2021-03-01] MEDS ORDERED: POTASSIUM CHLORIDE 20MEQ TABLET SR PO NR (11:00)
[2021-03-01] MEDS ORDERED: REGADENOSON 0.4 MG/5 ML IV ONE (11:47)
[2021-03-01] MEDS: TRIAMTERENE/HYDROCHLOROTHIAZIDE 37.5/25MG CAPSULE PO SCH (12:54)
[2021-03-01] MEDS: CLOPIDOGREL 75MG TABLET PO SCH (12:54)
[2021-03-01] MEDS: DOXAZOSIN MESYLATE 4MG TABLET PO SCH (12:54)
[2021-03-01] MEDS: ASPIRIN 81MG EC TABLET PO SCH (12:54)
[2021-03-01] MEDS: METOPROLOL TARTRATE 25MG TABLET PO SCH ×2 (12:54→20:35)
[2021-03-01] MEDS: ENOXAPARIN 30MG/0.3ML SYR SUBCUT SCH ×2 (12:55→20:36)
[2021-03-01] MEDS: LEVOFLOXACIN 250MG PREMIX 50 ML IV SCH (15:29)
[2021-03-01 20:00] VITALS: BP 148/71
[2021-03-01] MEDS: ATORVASTATIN CALCIUM 40MG TABLET PO SCH (20:35)
[2021-03-01] MEDS ORDERED: ZOLPIDEM TARTRATE 5MG TABLET PO PRN (22:30)
[2021-03-02 04:00] VITALS: BP 119/59
[2021-03-02] MEDS: VERAPAMIL HCL 80 MG TABLET PO SCH ×2 (06:52→13:08)
[2021-03-02] MEDS: INSULIN LISPRO 100 UNITS/ML SUBCUT SCH ×2 (07:04→12:40)
[2021-03-02] MEDS: BLOOD SUGAR DIAGNOSTIC STRIP TEST SCH ×2 (07:04→13:08)
[2021-03-02 07:18] LABS: CHLORIDE 107 mEq/L (98-107)
[2021-03-02 07:20] LABS: BASOPHILS % 0.3 % (0.0-2.0); EOSINOPHILS % 1.9 % (0.0-5.0); HEMATOCRIT. 39.9 % (36.0-48.0); HEMOGLOBIN. 13.4 g/dL (12.0-16.0); MEAN CORPUSCULAR HEMOGLOBIN 34.1 pg (28.0-32.0); MEAN CORPUSCULAR VOLUME 101.5 fL (81.0-99.0); MEAN PLATELET VOLUME 8.3 fl (7.4-10.4); MONOCYTES % 10.2 % (2.0-8.0); NEUTROPHILS % 54.6 % (40.0-76.0); PLATELET 170 x1000/uL (130-400); RED BLOOD CELL COUNT 3.93 mill/uL (4.2-5.4); RED CELL DISTRIBUTION WIDTH 13.9 % (11.6-14.6)
[2021-03-02 08:00] VITALS: BP 132/78
[2021-03-02] MEDS: TRIAMTERENE/HYDROCHLOROTHIAZIDE 37.5/25MG CAPSULE PO SCH (09:10)
[2021-03-02] MEDS: CLOPIDOGREL 75MG TABLET PO SCH (09:10)
[2021-03-02] MEDS: ONDANSETRON HCL 4MG/2ML INJ IV PRN (09:10)
[2021-03-02] MEDS: DOXAZOSIN MESYLATE 4MG TABLET PO SCH (09:10)
[2021-03-02] MEDS: METOPROLOL TARTRATE 25MG TABLET PO SCH (09:10)
[2021-03-02] MEDS: ASPIRIN 81MG EC TABLET PO SCH (09:11)
[2021-03-02] MEDS: ENOXAPARIN 30MG/0.3ML SYR SUBCUT SCH (09:11)
[2021-03-02 12:00] VITALS: BP 134/59
[2021-03-02 14:59] VITALS: BP 134/59
[2021-03-02] MEDS: LEVOFLOXACIN 250MG PREMIX 50 ML IV SCH (15:00)
== END 2021-03-02 15:20 | disposition home health service (06) | DRG 206 ==
LOC: ER 21:00 → 8WST 02-27 00:06 → EDBEDREQTM 02-27 00:08 → EDBEDREQDT 02-27 00:08 → EDBEDREQ 02-27 00:08 → SUPCPDRO 02-27 07:16 → ENRESERV 02-27 07:45
PROVIDERS: ADMIT Internal Medicine Geriatric Medicine; ATTEND Internal Medicine Geriatric Medicine
DX: M94.0 Chondrocostal junction syndrome [Tietze] (principal); I50.30 Unspecified diastolic (congestive) heart failure; Z68.41 Body mass index [BMI] 40.0-44.9, adult; K21.9 Gastro-esophageal reflux disease without esophagitis; E11.40 Type 2 diabetes mellitus with diabetic neuropathy, unspecified; E66.01 Morbid (severe) obesity due to excess calories; E78.5 Hyperlipidemia, unspecified; E87.6 Hypokalemia; E88.09 Other disorders of plasma-protein metabolism, not elsewhere classified; F17.210 Nicotine dependence, cigarettes, uncomplicated; I11.0 Hypertensive heart disease with heart failure; J44.9 Chronic obstructive pulmonary disease, unspecified; M54.9 Dorsalgia, unspecified; K29.70 Gastritis, unspecified, without bleeding; Z90.710 Acquired absence of both cervix and uterus; Z88.0 Allergy status to penicillin; Z88.8 Allergy status to other drugs, medicaments and biological substances; Z91.09 Other allergy status, other than to drugs and biological substances; Z79.899 Other long term (current) drug therapy; M54.16 Radiculopathy, lumbar region
CPT/HCPCS: 36415; 71045; 78452; 80048; 80053; 80061; 82962; 83036; 83735; 83880; 84100; 84484; 85025; 93005; 93017; 93970; 94640; 99285; A9500; J1650; J1815; J1956; J2405; J2785; J8597

== ENCOUNTER → 2021-03-26 | Outpatient (CLI) | payer MEDICARE, MEDICAID | END | disposition home or self-care (01) | LOC: MRI 07:21 | PROVIDERS: ATTEND Neurological Surgery | DX: M47.816 Spondylosis without myelopathy or radiculopathy, lumbar region (principal); M51.26 Other intervertebral disc displacement, lumbar region; M48.07 Spinal stenosis, lumbosacral region; Z98.1 Arthrodesis status | CPT/HCPCS: 72148 ==

== ENCOUNTER 2021-04-20 20:18 | Inpatient (IN) | payer MEDICARE, MEDICAID ==
[~2021-04-20] VITALS: Ht 160 cm; Wt 99.8 kg
[~2021-04-20 20:18] MED LIST changes: +CLOP-31 PO; -CLOP75TA4 PO; -VERA120T13 PO; +[UNRECOGNIZED DRUG - CODE] PO
[2021-04-20] MEDS ORDERED: MORPHINE SULFATE 4 MG/ML CPJ (NOT FOR IM USE) IV STA (21:03)
[2021-04-20] MEDS ORDERED: ASPIRIN 81MG TABLET PO ONE (21:15)
[2021-04-20] MEDS ORDERED: NITROGLYCERIN OINT 1GM/INCH UDPKT TD ONE (21:15)
[2021-04-20 22:12] LABS: BASOPHILS % 0.5 % (0.0-2.0); HEMATOCRIT. 41.6 % (36.0-48.0); HEMOGLOBIN. 14.4 g/dL (12.0-16.0); LYMPHOCYTES % 25.4 % (20.0-50.0); MEAN CORPUSCULAR HEMOGLOBIN 35.6 pg (28.0-32.0); MEAN CORPUSCULAR VOLUME 102.9 fL (81.0-99.0); MEAN PLATELET VOLUME 8.5 fl (7.4-10.4); MONOCYTES % 8.7 % (2.0-8.0); NEUTROPHILS % 64.4 % (40.0-76.0); PLATELET 134 x1000/uL (130-400); RED BLOOD CELL COUNT 4.04 mill/uL (4.2-5.4); RED CELL DISTRIBUTION WIDTH 14.1 % (11.6-14.6)
[2021-04-20 22:21] LABS: CHLORIDE 108 mEq/L (98-107)
[2021-04-20] MEDS ORDERED: SODIUM CHLORIDE 0.9% 500 ML IV ONE (22:45)
[2021-04-21 05:27] VITALS: BP 131/84
[2021-04-21 05:44] VITALS: BP 131/87
[2021-04-21] MEDS ORDERED: ONDANSETRON HCL 4MG/2ML INJ IV PRN ×2 (07:00→07:15)
[2021-04-21] MEDS ORDERED: MECLIZINE 25MG TABLET PO PRN (07:00)
[2021-04-21] MEDS ORDERED: DEXTROSE 50% WATER 50ML SYRINGE IV PRN (07:00)
[2021-04-21] MEDS: INSULIN LISPRO 100 UNITS/ML SUBCUT SCH ×2 (07:10→18:08)
[2021-04-21] MEDS: BLOOD SUGAR DIAGNOSTIC STRIP TEST SCH ×2 (07:27→17:32)
[2021-04-21 08:00] VITALS: BP 117/60
[2021-04-21] MEDS ORDERED: OMEPRAZOLE 20MG CAPSULE EXTENDED RELEASE PO SCH (08:00)
[2021-04-21] MEDS: PREGABALIN 50 MG CAPSULE PO SCH ×2 (08:23→20:49)
[2021-04-21] MEDS: ENOXAPARIN 30MG/0.3ML SYR SUBCUT SCH ×2 (08:23→20:50)
[2021-04-21] MEDS: DOCUSATE SODIUM 250MG CAPSULE PO SCH (08:23)
[2021-04-21] MEDS: TRIAMTERENE/HYDROCHLOROTHIAZIDE 37.5/25MG CAPSULE PO SCH (08:24)
[2021-04-21] MEDS: ACETAMINOPHEN 325MG TABLET PO PRN (08:24)
[2021-04-21] MEDS: DOXAZOSIN MESYLATE 4MG TABLET PO SCH (08:25)
[2021-04-21] MEDS: METOPROLOL TARTRATE 25MG TABLET PO SCH ×2 (08:25→20:50)
[2021-04-21] MEDS: VERAPAMIL HCL 40MG TABLET PO SCH ×3 (08:31→22:00)
[2021-04-21] MEDS: CLOPIDOGREL 75MG TABLET PO SCH (08:53)
[2021-04-21 08:54] LABS: BG BASE EXCESS -0.7 mmol/L (-2.0-2.0); BG CARBOXYHEMOGLOBIN 1.9 % (0.5-1.5); BG DEOXYHEMOGLOBIN 4.6 % (0.0-5.0); BG FRACTION INSPIRED OXYGEN 21; BG HCO3 ACT 24.1 mmol/L (22.0-26.0); BG METHEMOGLOBIN 0.2 % (0.0-1.5); BG OXYGEN SATURATION 95.3 % (92.0-98.5); BG OXYHEMOGLOBIN 93.3 % (94.0-97.0); BG PCO2 40.3 mmHg (35.0-45.0); BG PH 7.395 (7.350-7.450); BG PO2 79.7 mmHg (75.0-100.0); BG SAMPLE SITE LEFT RADIAL; BG TOTAL HEMOGLOBIN 13.2 g/dL (12.0-18.0); BG VENT MODE ROOM AIR
[2021-04-21] MEDS ORDERED: ENOXAPARIN 40MG/0.4ML SYR SUBCUT SCH (09:00)
[2021-04-21] MEDS ORDERED: VERAPAMIL HCL 120MG TABLET PO SCH (09:00)
[2021-04-21] MEDS ORDERED: PANTOPRAZOLE 40MG DR TABLET PO SCH (09:15)
[2021-04-21] MEDS: PYRIDOXINE HCL 50MG TABLET PO SCH (10:16)
[2021-04-21] MEDS: CYANOCOBALAMIN 100MCG TABLET PO SCH (10:16)
[2021-04-21 12:00] VITALS: BP 113/46
[2021-04-21] MEDS: LINAGLIPTIN 5MG TABLET PO SCH (12:38)
[2021-04-21] MEDS: IPRATROPIUM/ALBUTEROL 0.5-3(2.5)MG/3ML NEB HHN SCH ×3 (12:55→20:00)
[2021-04-21 16:00] VITALS: BP 145/58
[2021-04-21 16:35] LABS: CREATINE KINASE 33 IU/L (26-192)
[2021-04-21 16:36] LABS: CREATINE KINASE MB FRACTION 1.3 ng/mL (0.5-3.6)
[2021-04-21 20:00] VITALS: BP 115/72
[2021-04-21] MEDS ORDERED: ATORVASTATIN CALCIUM 40MG TABLET PO SCH (21:00)
[2021-04-21 23:49] LABS: CREATINE KINASE 29 IU/L (26-192)
[2021-04-21 23:50] LABS: CREATINE KINASE MB FRACTION < 1.0 ng/mL (0.5-3.6)
[2021-04-22] VITALS: BP 148/58
[2021-04-22] MEDS: IPRATROPIUM/ALBUTEROL 0.5-3(2.5)MG/3ML NEB HHN SCH ×4 (00:51→14:44)
[2021-04-22 04:00] VITALS: BP 151/46
[2021-04-22] MEDS: VERAPAMIL HCL 40MG TABLET PO SCH (06:00)
[2021-04-22] MEDS: BLOOD SUGAR DIAGNOSTIC STRIP TEST SCH (06:23)
[2021-04-22] MEDS: INSULIN LISPRO 100 UNITS/ML SUBCUT SCH (06:24)
[2021-04-22] MEDS: CYANOCOBALAMIN 100MCG TABLET PO SCH (06:54)
[2021-04-22] MEDS ORDERED: PANTOPRAZOLE 40MG DR TABLET PO SCH (07:10)
[2021-04-22 08:00] VITALS: BP 135/49
[2021-04-22] MEDS: PYRIDOXINE HCL 50MG TABLET PO SCH (09:22)
[2021-04-22] MEDS: ACETAMINOPHEN 325MG TABLET PO PRN (09:22)
[2021-04-22] MEDS: DOCUSATE SODIUM 250MG CAPSULE PO SCH (09:22)
[2021-04-22] MEDS: PREGABALIN 50 MG CAPSULE PO SCH (09:22)
[2021-04-22] MEDS: CLOPIDOGREL 75MG TABLET PO SCH (09:23)
[2021-04-22] MEDS: DOXAZOSIN MESYLATE 4MG TABLET PO SCH (09:23)
[2021-04-22] MEDS: METOPROLOL TARTRATE 25MG TABLET PO SCH (09:25)
[2021-04-22] MEDS ORDERED: NITR0.4T49 SL (09:26)
[2021-04-22] MEDS ORDERED: NICO-789 TP (09:26)
[2021-04-22] MEDS: ENOXAPARIN 30MG/0.3ML SYR SUBCUT SCH (09:27)
[2021-04-22 09:59] LABS: BASOPHILS % 0.4 % (0.0-2.0); EOSINOPHILS % 0.7 % (0.0-5.0); HEMOGLOBIN. 13.8 g/dL (12.0-16.0); LYMPHOCYTES % 19.8 % (20.0-50.0); MEAN CORPUSCULAR HEMOGLOBIN 35.2 pg (28.0-32.0); MEAN CORPUSCULAR VOLUME 101.8 fL (81.0-99.0); MEAN PLATELET VOLUME 7.8 fl (7.4-10.4); MONOCYTES % 5.2 % (2.0-8.0); NEUTROPHILS % 73.9 % (40.0-76.0); PLATELET 161 x1000/uL (130-400); RED BLOOD CELL COUNT 3.93 mill/uL (4.2-5.4)
[2021-04-22 10:01] LABS: CHLORIDE 107 mEq/L (98-107)
[2021-04-22 12:00] VITALS: BP 119/43
[2021-04-22] MEDS: LINAGLIPTIN 5MG TABLET PO SCH (12:47)
[2021-04-22] MEDS: TRIAMTERENE/HYDROCHLOROTHIAZIDE 37.5/25MG CAPSULE PO SCH (12:47)
[2021-04-22 16:32] VITALS: BP 119/43
[2021-05-25] MEDS ORDERED: ONDA4TAB50 PO (07:53)
[2021-05-25] MEDS ORDERED: TRIA1TAB92 MT (07:53)
[2021-05-25] MEDS ORDERED: PANT40TA51 MT (07:53)
[2021-05-25] MEDS ORDERED: ASPI-1406 MT (07:53)
== END 2021-04-22 17:00 | disposition home or self-care (01) | DRG 313 ==
LOC: ER 20:18 → 8WST 23:42 → ENRESERV 04-21 03:56
PROVIDERS: ADMIT Internal Medicine Geriatric Medicine; ATTEND Internal Medicine Geriatric Medicine
DX: R07.9 Chest pain, unspecified (principal); I47.1 Supraventricular tachycardia; K21.9 Gastro-esophageal reflux disease without esophagitis; E78.00 Pure hypercholesterolemia, unspecified; I10 Essential (primary) hypertension; E78.5 Hyperlipidemia, unspecified; E11.42 Type 2 diabetes mellitus with diabetic polyneuropathy; J44.9 Chronic obstructive pulmonary disease, unspecified; G90.8 Other disorders of autonomic nervous system; J32.9 Chronic sinusitis, unspecified; F17.210 Nicotine dependence, cigarettes, uncomplicated; I70.0 Atherosclerosis of aorta; E66.01 Morbid (severe) obesity due to excess calories; F43.22 Adjustment disorder with anxiety; G89.29 Other chronic pain; D75.89 Other specified diseases of blood and blood-forming organs; Z88.0 Allergy status to penicillin; Z88.8 Allergy status to other drugs, medicaments and biological substances; Z79.899 Other long term (current) drug therapy; Z79.02 Long term (current) use of antithrombotics/antiplatelets; Z68.39 Body mass index [BMI] 39.0-39.9, adult; F41.9 Anxiety disorder, unspecified; Z71.6 Tobacco abuse counseling; M96.1 Postlaminectomy syndrome, not elsewhere classified
CPT/HCPCS: 36415; 36600; 71045; 80048; 80053; 82375; 82550; 82553; 82805; 82962; 83036; 83880; 84484; 85025; 93005; 94640; 99285; J1650; J1815; J2270; J7040

== ENCOUNTER 2021-04-26 07:42 | Inpatient (IN) | payer MEDICARE, MEDICAID ==
[~2021-04-26] VITALS: Ht 160 cm; Wt 97.6 kg
[~2021-04-26 07:42] MED LIST changes: +NICO-789 TP; +NITR0.4T49 SL; -ONDA4VIA22 IV
[2021-04-26] MEDS ORDERED: NICARDIPINE 100MCG/ML 10ML VIAL (CATH LAB) IV ONE (08:46)
[2021-04-26] MEDS ORDERED: NITROGLYCERIN 50MCG/ML 10ML VIAL (CATH LAB) IV ONE (08:46)
[2021-04-26] MEDS ORDERED: HEPARIN SODIUM 1,000 UNIT/1ML VIAL IV ONE (08:46)
[2021-04-26 09:33] LABS: CHLORIDE 106 mEq/L (98-107)
[2021-04-26 09:35] LABS: BASOPHILS % 0.5 % (0.0-2.0); EOSINOPHILS % 0.7 % (0.0-5.0); HEMATOCRIT. 38.6 % (36.0-48.0); HEMOGLOBIN. 13.3 g/dL (12.0-16.0); LYMPHOCYTES % 22.6 % (20.0-50.0); MEAN CORPUSCULAR HEMOGLOBIN 35.3 pg (28.0-32.0); MEAN CORPUSCULAR VOLUME 102.3 fL (81.0-99.0); MEAN PLATELET VOLUME 8.1 fl (7.4-10.4); NEUTROPHILS % 69.2 % (40.0-76.0); PLATELET 164 x1000/uL (130-400); RED BLOOD CELL COUNT 3.78 mill/uL (4.2-5.4); RED CELL DISTRIBUTION WIDTH 14.2 % (11.6-14.6)
[2021-04-26 09:36] LABS: PROTHROMBIN TIME 10.9 sec (9.6-11.0)
[2021-04-26] MEDS ORDERED: LIDOCAINE HCL 1% 20ML VIAL (Pyxis) INJ ONE (10:19)
[2021-04-26] MEDS ORDERED: VERAPAMIL HCL 2.5 MG/1 ML 2ML VIAL IV ONE (10:19)
[2021-04-26] MEDS ORDERED: IODIXANOL 320MG/ML 100 ML BOTTLE IV ONE ×2 (10:19→11:56)
[2021-04-26] MEDS ORDERED: MIDAZOLAM HCL 2 MG/2 ML VIAL ONE ×2 (10:20→11:32)
[2021-04-26] MEDS ORDERED: FENTANYL CITRATE/PF 50MCG/ML 2ML VIAL ONE ×2 (10:20→11:58)
[2021-04-26] MEDS ORDERED: IOHEXOL-300 100 ML BOTTLE ONE (11:14)
[2021-04-26] MEDS ORDERED: ACETAMINOPHEN 325MG TABLET PO PRN (12:30)
[2021-04-26] MEDS ORDERED: ATROPINE SULFATE 1MG/10ML SYR IV PRN (12:30)
[2021-04-26] MEDS ORDERED: CLOPIDOGREL 75MG TABLET ONE (12:36)
[2021-04-26] MEDS ORDERED: ASPIRIN 325MG EC TABLET PO ONE (12:36)
[2021-04-26 12:57] VITALS: BP 128/73
[2021-04-26 14:00] VITALS: BP 128/73
[2021-04-26 15:59] VITALS: BP 129/90
[2021-04-26 17:31] VITALS: BP 155/62
[2021-04-26] MEDS: AMLODIPINE 5MG TABLET PO SCH (18:51)
[2021-04-26 20:00] VITALS: BP 139/68
[2021-04-26] MEDS ORDERED: ATORVASTATIN CALCIUM 40MG TABLET PO SCH (21:00)
[2021-04-26 22:00] VITALS: BP 148/60
[2021-04-27] VITALS (7 sets, daily range): BP systolic 123–145; BP diastolic 58–79
[2021-04-27 07:23] LABS: BASOPHILS % 0.4 % (0.0-2.0); HEMATOCRIT. 35.6 % (36.0-48.0); HEMOGLOBIN. 12.1 g/dL (12.0-16.0); LYMPHOCYTES % 23.4 % (20.0-50.0); MEAN CORPUSCULAR HEMOGLOBIN 34.6 pg (28.0-32.0); MEAN CORPUSCULAR VOLUME 102.2 fL (81.0-99.0); MEAN PLATELET VOLUME 8.1 fl (7.4-10.4); MONOCYTES % 7.3 % (2.0-8.0); NEUTROPHILS % 67.9 % (40.0-76.0); PLATELET 145 x1000/uL (130-400); RED BLOOD CELL COUNT 3.49 mill/uL (4.2-5.4); RED CELL DISTRIBUTION WIDTH 14.2 % (11.6-14.6)
[2021-04-27 07:42] LABS: CHLORIDE 107 mEq/L (98-107)
[2021-04-27] MEDS ORDERED: CLOPIDOGREL 75MG TABLET PO SCH (09:00)
[2021-04-27] MEDS ORDERED: ASPIRIN 325MG TABLET PO SCH (09:00)
[2021-04-27] MEDS ORDERED: FUROSEMIDE 40MG TABLET PO SCH (09:00)
[2021-04-27] MEDS ORDERED: ASPIRIN 81MG TABLET PO SCH (09:00)
[2021-04-27] MEDS ORDERED: SPIRONOLACTONE 25MG TABLET PO SCH (09:00)
[2021-04-27] MEDS: AMLODIPINE 5MG TABLET PO SCH (09:00)
== END 2021-04-27 12:00 | disposition home or self-care (01) | DRG 286 ==
LOC: CCL 07:42 → 3WST 12:59
PROVIDERS: ADMIT Internal Medicine; ATTEND Internal Medicine
PROC: B211YZZ Fluoroscopy of Multiple Coronary Arteries using Other Contrast (ICD-10-PCS; principal; 2021-04-26)
PROC: 4A023N7 Measurement of Cardiac Sampling and Pressure, Left Heart, Percutaneous Approach (ICD-10-PCS; 2021-04-26)
PROC: B54MZZA Ultrasonography of Right Upper Extremity Veins, Guidance (ICD-10-PCS; 2021-04-26)
PROC: 02JA3ZZ Inspection of Heart, Percutaneous Approach (ICD-10-PCS; 2021-04-26)
DX: I25.110 Atherosclerotic heart disease of native coronary artery with unstable angina pectoris (principal); I50.33 Acute on chronic diastolic (congestive) heart failure; J44.9 Chronic obstructive pulmonary disease, unspecified; E78.5 Hyperlipidemia, unspecified; F17.210 Nicotine dependence, cigarettes, uncomplicated; E11.51 Type 2 diabetes mellitus with diabetic peripheral angiopathy without gangrene; I11.0 Hypertensive heart disease with heart failure; Z71.6 Tobacco abuse counseling
CPT/HCPCS: 36415; 80048; 85025; 85347; 92920; 93005; 93458; C1769; C1887; C1893; J1644; J2250; J3010; J3490; Q9967

== ENCOUNTER → 2021-09-21 | Outpatient (CLI) | payer MEDICARE, MEDICAID ==
[~2021-09-21] MED LIST changes: +ASPI-1406 MT; -CYAN100T43 PO; -NICO-789 TP; +ONDA4TAB50 PO; +PANT40TA51 MT; -PYRI-8 PO; +TRIA1TAB92 MT
== END | disposition home or self-care (01) ==
LOC: MRI 08:21
PROVIDERS: ATTEND Internal Medicine Geriatric Medicine
DX: I67.82 Cerebral ischemia (principal); R51.9 Headache, unspecified; G50.1 Atypical facial pain
CPT/HCPCS: 70551

== ENCOUNTER 2022-05-27 21:55 | Inpatient (IN) | payer MEDICARE, MEDICAID ==
[2022-05-26 21:55] VITALS: BP 150/60
[~2022-05-27] VITALS: Ht 160 cm; Wt 108.9 kg
[~2022-05-27 21:55] MED LIST changes: +CYM20 PO; +ISOS30TA91 PO; -METO75TA PO; -OMEP20CA14 PO; -PREG100C PO; +RANO500T3 PO; -TRIA1CAP6 PO; -[UNRECOGNIZED DRUG - CODE] PO
[2022-05-27 22:49] VITALS: BP 150/60
[2022-05-28] VITALS: BP 145/65
[2022-05-28] MEDS ORDERED: ACETAMINOPHEN 325MG TABLET PO PRN (00:15)
[2022-05-28] MEDS ORDERED: AZITHROMYCIN 500 MG TABLET PO ONE (00:15)
[2022-05-28] MEDS ORDERED: NALOXONE HCL 0.4 MG/ML 1ML VIAL IV ONE (00:15)
[2022-05-28] MEDS ORDERED: METHYL SALICYLATE/MENTHOL CREAM 85GM TOP PRN (00:15)
[2022-05-28] MEDS ORDERED: ONDANSETRON HCL 4MG/2ML INJ IV PRN (00:15)
[2022-05-28] MEDS ORDERED: METHOCARBAMOL 500MG TABLET PO ONE (00:45)
[2022-05-28] MEDS ORDERED: ZOLPIDEM TARTRATE 5MG TABLET PO PRN (00:45)
[2022-05-28] MEDS ORDERED: NALOXONE HCL 0.4 MG/ML 1ML VIAL IV PRN (01:00)
[2022-05-28] MEDS ORDERED: METHOCARBAMOL 500MG TABLET PO NR (02:00)
[2022-05-28] MEDS ORDERED: NALOXONE HCL 0.4 MG/ML 1ML VIAL IV NR (02:00)
[2022-05-28] MEDS: PANTOPRAZOLE 40MG DR TABLET PO SCH (06:14)
[2022-05-28] MEDS: LIDOCAINE HCL 4% CREAM 76GM TUBE TP SCH ×3 (06:20→18:52)
[2022-05-28 08:00] VITALS: BP 151/87
[2022-05-28] MEDS: IPRATROPIUM/ALBUTEROL 0.5-3(2.5)MG/3ML NEB HHN SCH ×3 (08:00→20:08)
[2022-05-28] MEDS: DULOXETINE HCL 60MG DR CAPSULE PO SCH ×2 (09:00→10:00)
[2022-05-28] MEDS: DOCUSATE SODIUM 250MG CAPSULE PO SCH (09:07)
[2022-05-28] MEDS: PREGABALIN 25MG CAPSULE PO SCH ×2 (09:08→20:42)
[2022-05-28] MEDS: CLOPIDOGREL 75MG TABLET PO SCH (09:09)
[2022-05-28] MEDS: CYANOCOBALAMIN 1000MCG TABLET PO SCH (09:09)
[2022-05-28] MEDS: LINAGLIPTIN 5MG TABLET PO SCH (09:09)
[2022-05-28] MEDS: AZITHROMYCIN 500 MG TABLET PO SCH (09:10)
[2022-05-28] MEDS: HYDROCODONE/ACETAMINOPHEN 5/325MG TABLET PO PRN ×2 (09:12→20:42)
[2022-05-28] MEDS: ENOXAPARIN 30MG/0.3ML SYR SUBCUT SCH ×2 (09:17→20:43)
[2022-05-28] MEDS: FLUTICASONE PROPIONATE 50MCG/SPRAY BOTTLE BOTHNSTRLS SCH ×2 (09:26→20:43)
[2022-05-28] MEDS: DICLOFENAC SODIUM 1% GEL 50GM TOP SCH ×4 (09:53→20:43)
[2022-05-28] MEDS ORDERED: METHOCARBAMOL 500MG TABLET PO PRN (10:30)
[2022-05-28] MEDS: NITROGLYCERIN 0.4MG TABLET SL SL PRN ×2 (17:02→20:40)
[2022-05-28 20:00] VITALS: BP 127/65
[2022-05-28] MEDS: SENNOSIDES/DOCUSATE SOD 8.6/50MG TABLET PO SCH (20:42)
[2022-05-29] MEDS: IPRATROPIUM/ALBUTEROL 0.5-3(2.5)MG/3ML NEB HHN SCH ×6 (00:01→19:41)
[2022-05-29] MEDS: LIDOCAINE HCL 4% CREAM 76GM TUBE TP SCH ×5 (06:00→23:25)
[2022-05-29 06:28] LABS: BASOPHILS % 0.4 % (0.0-2.0); EOSINOPHILS % 0.7 % (0.0-5.0); HEMATOCRIT. 33.6 % (36.0-48.0); HEMOGLOBIN. 11.7 g/dL (12.0-16.0); LYMPHOCYTES % 18.5 % (20.0-50.0); MEAN CORPUSCULAR VOLUME 109.7 fL (81.0-99.0); MEAN PLATELET VOLUME 7.7 fl (7.4-10.4); NEUTROPHILS % 71.4 % (40.0-76.0); PLATELET 141 x1000/uL (130-400); RED BLOOD CELL COUNT 3.07 mill/uL (4.2-5.4); RED CELL DISTRIBUTION WIDTH 13.2 % (11.6-14.6)
[2022-05-29 06:43] LABS: CHLORIDE 109 mEq/L (98-107)
[2022-05-29] MEDS: HYDROCODONE/ACETAMINOPHEN 5/325MG TABLET PO PRN (06:57)
[2022-05-29] MEDS: PANTOPRAZOLE 40MG DR TABLET PO SCH (06:57)
[2022-05-29] MEDS: NITROGLYCERIN 0.4MG TABLET SL SL PRN (06:57)
[2022-05-29 08:00] VITALS: BP 123/63
[2022-05-29] MEDS: CYANOCOBALAMIN 1000MCG TABLET PO SCH (10:32)
[2022-05-29] MEDS: DOCUSATE SODIUM 250MG CAPSULE PO SCH (10:32)
[2022-05-29] MEDS: FLUTICASONE PROPIONATE 50MCG/SPRAY BOTTLE BOTHNSTRLS SCH ×2 (10:32→21:53)
[2022-05-29] MEDS: CLOPIDOGREL 75MG TABLET PO SCH (10:32)
[2022-05-29] MEDS: LINAGLIPTIN 5MG TABLET PO SCH (10:32)
[2022-05-29] MEDS: AZITHROMYCIN 500 MG TABLET PO SCH (10:32)
[2022-05-29] MEDS: ENOXAPARIN 30MG/0.3ML SYR SUBCUT SCH ×2 (10:34→21:55)
[2022-05-29] MEDS: DICLOFENAC SODIUM 1% GEL 50GM TOP SCH ×4 (10:35→22:04)
[2022-05-29] MEDS: DULOXETINE HCL 60MG DR CAPSULE PO SCH (17:36)
[2022-05-29] MEDS: PREGABALIN 75MG CAPSULE PO SCH ×2 (17:36→21:53)
[2022-05-29 20:00] VITALS: BP 153/70
[2022-05-29] MEDS: SENNOSIDES/DOCUSATE SOD 8.6/50MG TABLET PO SCH (21:53)
[2022-05-30] MEDS: IPRATROPIUM/ALBUTEROL 0.5-3(2.5)MG/3ML NEB HHN SCH ×5 (00:33→22:09)
[2022-05-30] MEDS: PANTOPRAZOLE 40MG DR TABLET PO SCH (06:29)
[2022-05-30] MEDS: LIDOCAINE HCL 4% CREAM 76GM TUBE TP SCH ×3 (06:30→18:56)
[2022-05-30 08:00] VITALS: BP 166/84
[2022-05-30] MEDS: CLOPIDOGREL 75MG TABLET PO SCH (09:12)
[2022-05-30] MEDS: CYANOCOBALAMIN 1000MCG TABLET PO SCH (09:12)
[2022-05-30] MEDS: AZITHROMYCIN 500 MG TABLET PO SCH (09:12)
[2022-05-30] MEDS: PREGABALIN 75MG CAPSULE PO SCH ×2 (09:12→20:56)
[2022-05-30] MEDS: DOCUSATE SODIUM 250MG CAPSULE PO SCH (09:12)
[2022-05-30] MEDS: DICLOFENAC SODIUM 1% GEL 50GM TOP SCH ×4 (09:13→21:00)
[2022-05-30] MEDS: DULOXETINE HCL 60MG DR CAPSULE PO SCH (09:13)
[2022-05-30] MEDS: LINAGLIPTIN 5MG TABLET PO SCH (09:13)
[2022-05-30] MEDS ORDERED: DILTIAZEM HCL 180MG CAPSULE CD 24HR PO NR (09:15)
[2022-05-30] MEDS ORDERED: DEXTROSE 50% WATER 50ML SYRINGE IV PRN (09:15)
[2022-05-30] MEDS ORDERED: MECLIZINE 25MG TABLET PO NR (09:15)
[2022-05-30] MEDS: FLUTICASONE PROPIONATE 50MCG/SPRAY BOTTLE BOTHNSTRLS SCH ×2 (09:21→20:53)
[2022-05-30] MEDS: ENOXAPARIN 30MG/0.3ML SYR SUBCUT SCH ×2 (09:21→20:58)
[2022-05-30] MEDS: BLOOD SUGAR DIAGNOSTIC STRIP TEST SCH ×3 (11:15→21:00)
[2022-05-30] MEDS: INSULIN LISPRO 100 UNITS/ML SUBCUT SCH ×3 (13:00→21:00)
[2022-05-30] MEDS: HYDROCODONE/ACETAMINOPHEN 5/325MG TABLET PO PRN (15:59)
[2022-05-30 20:00] VITALS: BP 140/71
[2022-05-30] MEDS: SENNOSIDES/DOCUSATE SOD 8.6/50MG TABLET PO SCH (21:01)
[2022-05-31] MEDS: IPRATROPIUM/ALBUTEROL 0.5-3(2.5)MG/3ML NEB HHN SCH ×6 (02:25→20:46)
[2022-05-31] MEDS: LIDOCAINE HCL 4% CREAM 76GM TUBE TP SCH ×3 (06:11→18:00)
[2022-05-31] MEDS: BLOOD SUGAR DIAGNOSTIC STRIP TEST SCH ×4 (06:13→21:12)
[2022-05-31 08:00] VITALS: BP 163/73
[2022-05-31] MEDS: FLUTICASONE PROPIONATE 50MCG/SPRAY BOTTLE BOTHNSTRLS SCH ×2 (09:00→22:03)
[2022-05-31] MEDS: LINAGLIPTIN 5MG TABLET PO SCH (09:00)
[2022-05-31] MEDS: INSULIN LISPRO 100 UNITS/ML SUBCUT SCH ×4 (09:00→21:00)
[2022-05-31] MEDS: CLOPIDOGREL 75MG TABLET PO SCH (09:33)
[2022-05-31] MEDS: DOCUSATE SODIUM 250MG CAPSULE PO SCH ×2 (09:33→09:35)
[2022-05-31] MEDS: CYANOCOBALAMIN 1000MCG TABLET PO SCH (09:33)
[2022-05-31] MEDS: DULOXETINE HCL 60MG DR CAPSULE PO SCH (09:33)
[2022-05-31] MEDS: DILTIAZEM HCL 180MG CAPSULE CD 24HR PO SCH (09:34)
[2022-05-31] MEDS: FAMOTIDINE 20MG TABLET PO SCH ×2 (09:35→21:55)
[2022-05-31] MEDS: DICLOFENAC SODIUM 1% GEL 50GM TOP SCH ×4 (09:36→21:00)
[2022-05-31] MEDS: PREGABALIN 75MG CAPSULE PO SCH (09:38)
[2022-05-31 11:22] VITALS: BP 163/73
[2022-05-31] MEDS: ENOXAPARIN 30MG/0.3ML SYR SUBCUT SCH ×2 (13:37→21:52)
[2022-05-31 16:00] VITALS: BP 171/68
[2022-05-31 18:24] LABS: BASOPHILS % 0.2 % (0.0-2.0); EOSINOPHILS % 0.9 % (0.0-5.0); HEMATOCRIT. 36.5 % (36.0-48.0); HEMOGLOBIN. 12.3 g/dL (12.0-16.0); LYMPHOCYTES % 13.1 % (20.0-50.0); MEAN CORPUSCULAR HEMOGLOBIN 37.5 pg (28.0-32.0); MEAN CORPUSCULAR VOLUME 111.1 fL (81.0-99.0); MEAN PLATELET VOLUME 6.9 fl (7.4-10.4); MONOCYTES % 11.1 % (2.0-8.0); NEUTROPHILS % 74.7 % (40.0-76.0); PLATELET 164 x1000/uL (130-400); RED BLOOD CELL COUNT 3.28 mill/uL (4.2-5.4); RED CELL DISTRIBUTION WIDTH 13.6 % (11.6-14.6)
[2022-05-31 18:36] LABS: CHLORIDE 105 mEq/L (98-107)
[2022-05-31 20:00] VITALS: BP 130/77
[2022-05-31] MEDS: SENNOSIDES/DOCUSATE SOD 8.6/50MG TABLET PO SCH (21:34)
[2022-06-01] MEDS: IPRATROPIUM/ALBUTEROL 0.5-3(2.5)MG/3ML NEB HHN SCH ×6 (01:55→20:31)
[2022-06-01] MEDS: LIDOCAINE HCL 4% CREAM 76GM TUBE TP SCH ×4 (06:01→17:56)
[2022-06-01] MEDS: BLOOD SUGAR DIAGNOSTIC STRIP TEST SCH ×4 (06:04→20:46)
[2022-06-01 06:11] LABS: BASOPHILS % 0.2 % (0.0-2.0); EOSINOPHILS % 1.2 % (0.0-5.0); HEMATOCRIT. 33.4 % (36.0-48.0); HEMOGLOBIN. 11.4 g/dL (12.0-16.0); LYMPHOCYTES % 17.2 % (20.0-50.0); MEAN CORPUSCULAR HEMOGLOBIN 37.5 pg (28.0-32.0); MEAN CORPUSCULAR VOLUME 109.9 fL (81.0-99.0); MEAN PLATELET VOLUME 7.1 fl (7.4-10.4); MONOCYTES % 12.2 % (2.0-8.0); NEUTROPHILS % 69.2 % (40.0-76.0); PLATELET 163 x1000/uL (130-400); RED BLOOD CELL COUNT 3.04 mill/uL (4.2-5.4); RED CELL DISTRIBUTION WIDTH 13.4 % (11.6-14.6)
[2022-06-01 06:28] LABS: CHLORIDE 103 mEq/L (98-107)
[2022-06-01 08:00] VITALS: BP 188/60
[2022-06-01] MEDS: INSULIN LISPRO 100 UNITS/ML SUBCUT SCH ×4 (09:00→21:31)
[2022-06-01] MEDS: FLUTICASONE PROPIONATE 50MCG/SPRAY BOTTLE BOTHNSTRLS SCH ×2 (09:00→21:06)
[2022-06-01] MEDS: FAMOTIDINE 20MG TABLET PO SCH ×2 (09:00→21:04)
[2022-06-01] MEDS: DICLOFENAC SODIUM 1% GEL 50GM TOP SCH ×4 (09:00→21:05)
[2022-06-01] MEDS: CLOPIDOGREL 75MG TABLET PO SCH (09:09)
[2022-06-01] MEDS: CYANOCOBALAMIN 1000MCG TABLET PO SCH (09:09)
[2022-06-01] MEDS: DILTIAZEM HCL 180MG CAPSULE CD 24HR PO SCH (09:11)
[2022-06-01] MEDS: ENOXAPARIN 30MG/0.3ML SYR SUBCUT SCH ×2 (09:15→21:04)
[2022-06-01 09:58] LABS: CLARITY URINE CLOUDY (CLEAR); COLOR URINE DARK YELLOW (YELLOW); KETONES URINE 2+ (NEGATIVE); LEUKOCYTE ESTERASE URINE 2+ (NEGATIVE); NITRITE URINE NEGATIVE (NEGATIVE); OCCULT BLOOD URINE NEGATIVE (NEGATIVE); PROTEIN URINE 1+ (NEGATIVE); SPECIFIC GRAVITY URINE 1.027 (1.005-1.030)
[2022-06-01 10:49] LABS: *AMPHETAMINES SCREEN URINE NEGATIVE (NEGATIVE); *BARBITURATES SCREEN URINE NEGATIVE (NEGATIVE); *BENZODIAZEPINES SCREEN URINE NEGATIVE (NEGATIVE); *COCAINE SCREEN URINE NEGATIVE (NEGATIVE); CANNABINOID URINE SCREEN NEGATIVE (NEGATIVE); METHADONE URINE SCREEN NEGATIVE (NEGATIVE); OPIATES URINE SCREEN PRESUMTIVE POSITIVE (NEGATIVE); PHENCYCLIDINE URINE SCREEN NEGATIVE (NEGATIVE)
[2022-06-01 20:00] VITALS: BP 151/59
[2022-06-01] MEDS: SENNOSIDES/DOCUSATE SOD 8.6/50MG TABLET PO SCH (21:04)
[2022-06-01 23:58] VITALS: BP 151/59
[2022-06-02] MEDS: IPRATROPIUM/ALBUTEROL 0.5-3(2.5)MG/3ML NEB HHN SCH ×6 (00:13→20:09)
[2022-06-02] MEDS: BLOOD SUGAR DIAGNOSTIC STRIP TEST SCH ×4 (06:54→21:00)
[2022-06-02] MEDS: LIDOCAINE HCL 4% CREAM 76GM TUBE TP SCH ×4 (07:00→18:00)
[2022-06-02 08:00] VITALS: BP 164/67
[2022-06-02] MEDS: INSULIN LISPRO 100 UNITS/ML SUBCUT SCH ×4 (09:00→21:00)
[2022-06-02] MEDS: DICLOFENAC SODIUM 1% GEL 50GM TOP SCH ×4 (09:00→22:13)
[2022-06-02] MEDS: DOCUSATE SODIUM 250MG CAPSULE PO SCH (09:28)
[2022-06-02] MEDS: FAMOTIDINE 20MG TABLET PO SCH ×2 (09:29→22:15)
[2022-06-02] MEDS: CYANOCOBALAMIN 1000MCG TABLET PO SCH (09:29)
[2022-06-02] MEDS: CLOPIDOGREL 75MG TABLET PO SCH (09:29)
[2022-06-02] MEDS: ENOXAPARIN 30MG/0.3ML SYR SUBCUT SCH ×2 (09:32→22:16)
[2022-06-02 20:00] VITALS: BP 168/79
[2022-06-02] MEDS: SENNOSIDES/DOCUSATE SOD 8.6/50MG TABLET PO SCH (22:15)
[2022-06-03] MEDS: BLOOD SUGAR DIAGNOSTIC STRIP TEST SCH ×4 (06:17→21:40)
[2022-06-03] MEDS: LIDOCAINE HCL 4% CREAM 76GM TUBE TP SCH ×4 (06:23→17:50)
[2022-06-03 08:00] VITALS: BP 174/60
[2022-06-03] MEDS: ENOXAPARIN 30MG/0.3ML SYR SUBCUT SCH ×3 (09:00→21:47)
[2022-06-03] MEDS: DICLOFENAC SODIUM 1% GEL 50GM TOP SCH ×4 (09:00→21:46)
[2022-06-03] MEDS: INSULIN LISPRO 100 UNITS/ML SUBCUT SCH ×4 (09:00→21:00)
[2022-06-03] MEDS: ATENOLOL 25MG TABLET PO SCH (09:30)
[2022-06-03] MEDS: CYANOCOBALAMIN 1000MCG TABLET PO SCH (09:41)
[2022-06-03] MEDS: DOCUSATE SODIUM 250MG CAPSULE PO SCH ×2 (09:41→17:48)
[2022-06-03] MEDS: CLOPIDOGREL 75MG TABLET PO SCH (09:41)
[2022-06-03] MEDS: FAMOTIDINE 20MG TABLET PO SCH ×2 (09:41→21:46)
[2022-06-03] MEDS: DILTIAZEM HCL 120MG CAPSULE ER 24HR PO SCH (09:42)
[2022-06-03] MEDS: MECLIZINE 25MG TABLET PO PRN (09:42)
[2022-06-03] MEDS: IPRATROPIUM/ALBUTEROL 0.5-3(2.5)MG/3ML NEB HHN SCH ×4 (10:45→19:20)
[2022-06-03] MEDS ORDERED: HYDRALAZINE HCL 50MG TABLET PO NR (14:30)
[2022-06-03] MEDS ORDERED: LACTULOSE 20G/30ML UDC PO NR (14:30)
[2022-06-03 20:00] VITALS: BP 180/75
[2022-06-03] MEDS: SENNOSIDES/DOCUSATE SOD 8.6/50MG TABLET PO SCH (21:46)
[2022-06-03] MEDS: HYDRALAZINE HCL 50MG TABLET PO SCH (21:47)
[2022-06-04] MEDS ORDERED: LACTULOSE 20G/30ML UDC PO PRN
[2022-06-04] MEDS: IPRATROPIUM/ALBUTEROL 0.5-3(2.5)MG/3ML NEB HHN SCH ×4 (02:00→21:00)
[2022-06-04] MEDS: LIDOCAINE HCL 4% CREAM 76GM TUBE TP SCH ×5 (06:42→23:49)
[2022-06-04] MEDS: BLOOD SUGAR DIAGNOSTIC STRIP TEST SCH ×4 (06:43→21:01)
[2022-06-04 08:00] VITALS: BP 130/71
[2022-06-04] MEDS: INSULIN LISPRO 100 UNITS/ML SUBCUT SCH ×4 (09:00→21:00)
[2022-06-04] MEDS: HYDRALAZINE HCL 50MG TABLET PO SCH ×2 (09:01→20:26)
[2022-06-04] MEDS: CLOPIDOGREL 75MG TABLET PO SCH (09:01)
[2022-06-04] MEDS: DILTIAZEM HCL 120MG CAPSULE ER 24HR PO SCH (09:01)
[2022-06-04] MEDS: ATENOLOL 25MG TABLET PO SCH (09:02)
[2022-06-04] MEDS: FAMOTIDINE 20MG TABLET PO SCH ×2 (09:02→20:26)
[2022-06-04] MEDS: CYANOCOBALAMIN 1000MCG TABLET PO SCH (09:02)
[2022-06-04] MEDS: DICLOFENAC SODIUM 1% GEL 50GM TOP SCH ×4 (09:03→20:27)
[2022-06-04] MEDS: ENOXAPARIN 30MG/0.3ML SYR SUBCUT SCH ×2 (09:04→20:26)
[2022-06-04] MEDS: DOCUSATE SODIUM 250MG CAPSULE PO SCH ×2 (12:43→17:48)
[2022-06-04] MEDS: MECLIZINE 25MG TABLET PO PRN (12:43)
[2022-06-04 20:04] VITALS: BP 116/74
[2022-06-04] MEDS: SENNOSIDES/DOCUSATE SOD 8.6/50MG TABLET PO SCH (20:26)
[2022-06-05] MEDS: IPRATROPIUM/ALBUTEROL 0.5-3(2.5)MG/3ML NEB HHN SCH ×6 (00:35→21:18)
[2022-06-05] MEDS: LIDOCAINE HCL 4% CREAM 76GM TUBE TP SCH ×4 (06:19→23:35)
[2022-06-05] MEDS: INSULIN LISPRO 100 UNITS/ML SUBCUT SCH ×4 (06:22→21:00)
[2022-06-05] MEDS: BLOOD SUGAR DIAGNOSTIC STRIP TEST SCH ×4 (06:22→21:09)
[2022-06-05 08:00] VITALS: BP 155/60
[2022-06-05] MEDS: FAMOTIDINE 20MG TABLET PO SCH ×2 (08:35→20:50)
[2022-06-05] MEDS: DILTIAZEM HCL 120MG CAPSULE ER 24HR PO SCH (08:36)
[2022-06-05] MEDS: DOCUSATE SODIUM 250MG CAPSULE PO SCH ×2 (08:36→17:46)
[2022-06-05] MEDS: HYDRALAZINE HCL 50MG TABLET PO SCH ×2 (08:37→20:50)
[2022-06-05] MEDS: ATENOLOL 25MG TABLET PO SCH (08:37)
[2022-06-05] MEDS: MECLIZINE 25MG TABLET PO PRN ×2 (08:37→17:46)
[2022-06-05] MEDS: CYANOCOBALAMIN 1000MCG TABLET PO SCH (08:37)
[2022-06-05] MEDS: CLOPIDOGREL 75MG TABLET PO SCH (08:37)
[2022-06-05] MEDS: ENOXAPARIN 30MG/0.3ML SYR SUBCUT SCH ×2 (08:38→20:50)
[2022-06-05] MEDS: DICLOFENAC SODIUM 1% GEL 50GM TOP SCH ×4 (08:39→20:51)
[2022-06-05 20:00] VITALS: BP 152/58
[2022-06-05] MEDS: SENNOSIDES/DOCUSATE SOD 8.6/50MG TABLET PO SCH (20:51)
[2022-06-06] MEDS: MECLIZINE 25MG TABLET PO PRN ×2 (01:51→09:41)
[2022-06-06] MEDS: IPRATROPIUM/ALBUTEROL 0.5-3(2.5)MG/3ML NEB HHN SCH ×6 (02:11→21:36)
[2022-06-06] MEDS: LIDOCAINE HCL 4% CREAM 76GM TUBE TP SCH ×3 (06:12→18:00)
[2022-06-06] MEDS: BLOOD SUGAR DIAGNOSTIC STRIP TEST SCH ×4 (06:12→21:50)
[2022-06-06] MEDS: INSULIN LISPRO 100 UNITS/ML SUBCUT SCH ×4 (06:30→21:00)
[2022-06-06 08:00] VITALS: BP 148/90
[2022-06-06] MEDS: DICLOFENAC SODIUM 1% GEL 50GM TOP SCH ×4 (09:00→21:51)
[2022-06-06] MEDS ORDERED: ATENOLOL 25MG TABLET PO SCH (09:00)
[2022-06-06] MEDS: DILTIAZEM HCL 120MG CAPSULE ER 24HR PO SCH (09:10)
[2022-06-06] MEDS: CLOPIDOGREL 75MG TABLET PO SCH (09:11)
[2022-06-06] MEDS: DOCUSATE SODIUM 250MG CAPSULE PO SCH ×2 (09:11→17:00)
[2022-06-06] MEDS: CYANOCOBALAMIN 1000MCG TABLET PO SCH (09:12)
[2022-06-06] MEDS: FAMOTIDINE 20MG TABLET PO SCH ×2 (09:12→21:50)
[2022-06-06] MEDS: HYDRALAZINE HCL 50MG TABLET PO SCH ×2 (09:12→21:49)
[2022-06-06] MEDS: ENOXAPARIN 30MG/0.3ML SYR SUBCUT SCH ×2 (09:13→21:49)
[2022-06-06] MEDS ORDERED: ATENOLOL 50 MG TABLET PO SCH (16:30)
[2022-06-06 17:34] VITALS: BP 153/80
[2022-06-06 20:00] VITALS: BP 144/63
[2022-06-06] MEDS: SENNOSIDES/DOCUSATE SOD 8.6/50MG TABLET PO SCH (21:50)
[2022-06-07] MEDS: IPRATROPIUM/ALBUTEROL 0.5-3(2.5)MG/3ML NEB HHN SCH ×4 (02:10→11:40)
[2022-06-07] MEDS: LIDOCAINE HCL 4% CREAM 76GM TUBE TP SCH ×3 (06:00→12:55)
[2022-06-07] MEDS: BLOOD SUGAR DIAGNOSTIC STRIP TEST SCH ×2 (07:05→11:15)
[2022-06-07 07:32] LABS: BASOPHILS % 0.5 % (0.0-2.0); EOSINOPHILS % 1.2 % (0.0-5.0); HEMOGLOBIN. 12.4 g/dL (12.0-16.0); LYMPHOCYTES % 27.7 % (20.0-50.0); MEAN CORPUSCULAR HEMOGLOBIN 37.1 pg (28.0-32.0); MEAN CORPUSCULAR VOLUME 110.4 fL (81.0-99.0); MEAN PLATELET VOLUME 7.1 fl (7.4-10.4); MONOCYTES % 6.9 % (2.0-8.0); NEUTROPHILS % 63.7 % (40.0-76.0); PLATELET 225 x1000/uL (130-400); RED BLOOD CELL COUNT 3.36 mill/uL (4.2-5.4); RED CELL DISTRIBUTION WIDTH 13.7 % (11.6-14.6)
[2022-06-07 08:00] VITALS: BP 161/60
[2022-06-07] MEDS: ENOXAPARIN 30MG/0.3ML SYR SUBCUT SCH (08:42)
[2022-06-07] MEDS: CLOPIDOGREL 75MG TABLET PO SCH (08:43)
[2022-06-07] MEDS: MECLIZINE 25MG TABLET PO PRN (08:43)
[2022-06-07] MEDS: DOCUSATE SODIUM 250MG CAPSULE PO SCH (08:48)
[2022-06-07] MEDS: FAMOTIDINE 20MG TABLET PO SCH (08:48)
[2022-06-07] MEDS: CYANOCOBALAMIN 1000MCG TABLET PO SCH (08:48)
[2022-06-07] MEDS: DILTIAZEM HCL 120MG CAPSULE ER 24HR PO SCH (08:48)
[2022-06-07] MEDS: INSULIN LISPRO 100 UNITS/ML SUBCUT SCH ×2 (08:50→12:55)
[2022-06-07] MEDS: HYDRALAZINE HCL 50MG TABLET PO SCH (08:52)
[2022-06-07] MEDS: DICLOFENAC SODIUM 1% GEL 50GM TOP SCH ×2 (08:53→12:55)
[2022-06-07] MEDS ORDERED: ATENOLOL 50 MG TABLET PO SCH (09:00)
[2022-06-07] MEDS ORDERED: HYDRALAZINE HCL 50MG TABLET PO SCH (09:30)
[2022-06-07 09:51] LABS: CHLORIDE 110 mEq/L (98-107)
[2022-06-07] MEDS ORDERED: FLUTICASONE/VILANTEROL 200-25 BLST.W.DEV ORI SCH (11:00)
[2022-06-07 15:02] VITALS: BP 160/60
[2022-06-07 15:05] VITALS: BP 151/70
== END 2022-06-07 16:40 | disposition home health service (06) | DRG 551 ==
PROVIDERS: ADMIT Psychiatry & Neurology Neurology; ATTEND Internal Medicine Geriatric Medicine
DX: M51.16 Intervertebral disc disorders with radiculopathy, lumbar region (principal); E43 Unspecified severe protein-calorie malnutrition; J18.9 Pneumonia, unspecified organism; G93.41 Metabolic encephalopathy; J44.0 Chronic obstructive pulmonary disease with (acute) lower respiratory infection; Z68.41 Body mass index [BMI] 40.0-44.9, adult; R29.6 Repeated falls; D75.89 Other specified diseases of blood and blood-forming organs; I11.9 Hypertensive heart disease without heart failure; E11.43 Type 2 diabetes mellitus with diabetic autonomic (poly)neuropathy; L30.4 Erythema intertrigo; I65.22 Occlusion and stenosis of left carotid artery; I95.1 Orthostatic hypotension; G90.8 Other disorders of autonomic nervous system; E66.01 Morbid (severe) obesity due to excess calories; E78.5 Hyperlipidemia, unspecified; F06.34 Mood disorder due to known physiological condition with mixed features; M47.26 Other spondylosis with radiculopathy, lumbar region; M25.561 Pain in right knee; M25.551 Pain in right hip; M96.1 Postlaminectomy syndrome, not elsewhere classified; F17.210 Nicotine dependence, cigarettes, uncomplicated; I25.10 Atherosclerotic heart disease of native coronary artery without angina pectoris; E11.649 Type 2 diabetes mellitus with hypoglycemia without coma; G89.4 Chronic pain syndrome; Z95.5 Presence of coronary angioplasty implant and graft
CPT/HCPCS: 36415; 71045; 80048; 80053; 80305; 81003; 82140; 82962; 85025; 93005; 93970; 94640; 97110; 97116; 97163; 97166; 97530; 97535; J1650; J1815; J8597

== ENCOUNTER 2022-08-03 16:52 | Inpatient (IN) | payer MEDICARE, MEDICAID ==
[~2022-08-03] VITALS: Ht 160 cm; Wt 90.7 kg
[~2022-08-03 16:52] MED LIST changes: -CYM20 PO; -LIP40 PO; -SITA100T11 PO; -TRIA1TAB92 MT
[2022-08-03 20:16] LABS: BASOPHILS % 0.6 % (0.0-2.0); EOSINOPHILS % 1.4 % (0.0-5.0); HEMATOCRIT. 37.9 % (36.0-48.0); HEMOGLOBIN. 12.9 g/dL (12.0-16.0); LYMPHOCYTES % 27.9 % (20.0-50.0); MEAN CORPUSCULAR HEMOGLOBIN 36.7 pg (28.0-32.0); MEAN CORPUSCULAR VOLUME 107.5 fL (81.0-99.0); MEAN PLATELET VOLUME 7.5 fl (7.4-10.4); MONOCYTES % 8.1 % (2.0-8.0); PLATELET 164 x1000/uL (130-400); RED BLOOD CELL COUNT 3.53 mill/uL (4.2-5.4); RED CELL DISTRIBUTION WIDTH 13.3 % (11.6-14.6)
[2022-08-03 20:22] LABS: CHLORIDE 110 mEq/L (98-107)
[2022-08-03] MEDS ORDERED: HYDROCODONE/ACETAMINOPHEN 5/325MG TABLET PO STA (23:38)
[2022-08-04] MEDS ORDERED: CLONIDINE 0.1MG TABLET PO PRN (22:00)
[2022-08-04] MEDS ORDERED: ACETAMINOPHEN 325MG TABLET PO PRN (23:45)
[2022-08-04] MEDS ORDERED: NITROGLYCERIN 0.4MG TABLET SL SL PRN (23:45)
[2022-08-04] MEDS ORDERED: MECLIZINE 25MG TABLET PO PRN (23:45)
[2022-08-04] MEDS ORDERED: KETOROLAC 30MG/ML VIAL IV PRN (23:45)
[2022-08-04] MEDS ORDERED: ONDANSETRON HCL 4MG/2ML INJ IV PRN (23:45)
[2022-08-05] VITALS: BP 177/63
[2022-08-05 00:45] VITALS: BP 130/90
[2022-08-05 08:00] VITALS: BP 156/63
[2022-08-05] MEDS ORDERED: SODIUM BICARBONATE 4% (2.4MEQ) 5ML VIAL IV ONE (08:01)
[2022-08-05] MEDS ORDERED: LIDOCAINE HCL 1% 10 MG/ML 10ML VIAL ONE (08:01)
[2022-08-05] MEDS: PANTOPRAZOLE 40MG DR TABLET PO SCH (09:20)
[2022-08-05] MEDS: ISOSORBIDE MONONITRATE 30MG TABLET SR 24HR PO SCH (09:21)
[2022-08-05] MEDS: DOXAZOSIN MESYLATE 4MG TABLET PO SCH (09:22)
[2022-08-05] MEDS: RANOLAZINE 500 MG TAB.SR.12H PO SCH ×2 (09:22→21:00)
[2022-08-05 11:36] LABS: BASOPHILS % 0.2 % (0.0-2.0); EOSINOPHILS % 2.4 % (0.0-5.0); HEMATOCRIT. 33.4 % (36.0-48.0); HEMOGLOBIN. 11.4 g/dL (12.0-16.0); LYMPHOCYTES % 32.9 % (20.0-50.0); MEAN CORPUSCULAR HEMOGLOBIN 36.5 pg (28.0-32.0); MEAN CORPUSCULAR VOLUME 107.1 fL (81.0-99.0); MEAN PLATELET VOLUME 7.8 fl (7.4-10.4); MONOCYTES % 7.4 % (2.0-8.0); NEUTROPHILS % 57.1 % (40.0-76.0); PLATELET 143 x1000/uL (130-400); RED BLOOD CELL COUNT 3.12 mill/uL (4.2-5.4); RED CELL DISTRIBUTION WIDTH 12.8 % (11.6-14.6)
[2022-08-05 11:42] LABS: CHLORIDE 113 mEq/L (98-107)
[2022-08-05 12:00] VITALS: BP 148/52
[2022-08-05 16:00] VITALS: BP 151/53
[2022-08-05 20:00] VITALS: BP 145/35
[2022-08-05] MEDS ORDERED: HYDROCODONE/ACETAMINOPHEN 5/325MG TABLET PO PRN (23:30)
[2022-08-06] VITALS: BP 138/75
[2022-08-06 04:00] VITALS: BP 146/43
[2022-08-06 08:00] VITALS: BP 195/76
[2022-08-06] MEDS: ISOSORBIDE MONONITRATE 30MG TABLET SR 24HR PO SCH (09:04)
[2022-08-06] MEDS: RANOLAZINE 500 MG TAB.SR.12H PO SCH (09:05)
[2022-08-06] MEDS: PANTOPRAZOLE 40MG DR TABLET PO SCH (09:05)
[2022-08-06] MEDS: DOXAZOSIN MESYLATE 4MG TABLET PO SCH (09:06)
[2022-08-06 12:00] VITALS: BP 150/57
[2022-08-06] MEDS ORDERED: COLC0.6C3 MT (12:27)
[2022-08-06] MEDS ORDERED: MELO-104 MT (12:27)
[2022-08-06] MEDS ORDERED: HYDR-4009 PO (12:27)
[2022-08-06 15:17] VITALS: BP 150/57
[2022-08-06 16:00] VITALS: BP 199/73
[2022-08-07] MEDS ORDERED: FAMOTIDINE 20MG TABLET PO SCH (09:00)
== END 2022-08-06 17:15 | disposition home or self-care (01) | DRG 554 ==
LOC: ER 17:14 → MICUSO 08-04 02:52 → EDBEDREQ 08-04 02:59 → 6EST 08-05 01:45
PROVIDERS: ADMIT Internal Medicine; ATTEND Internal Medicine
PROC: 0S9D3ZZ Drainage of Left Knee Joint, Percutaneous Approach (ICD-10-PCS; principal; 2022-08-05)
DX: M17.12 Unilateral primary osteoarthritis, left knee (principal); E44.1 Mild protein-calorie malnutrition; M25.462 Effusion, left knee; G89.29 Other chronic pain; I10 Essential (primary) hypertension; E11.9 Type 2 diabetes mellitus without complications; Z20.822 Contact with and (suspected) exposure to COVID-19; E78.00 Pure hypercholesterolemia, unspecified; E78.5 Hyperlipidemia, unspecified; Z96.652 Presence of left artificial knee joint; Z82.49 Family history of ischemic heart disease and other diseases of the circulatory system; Z88.0 Allergy status to penicillin
CPT/HCPCS: 20611; 36415; 71045; 73560; 80048; 80053; 83880; 85025; 87426; 89060; 93005; 93970; 97162; 97535; 99285; J3490; J8597

== ENCOUNTER 2022-12-19 18:31 | Inpatient (IN) | payer MEDICARE, MEDICAID ==
[~2022-12-19] VITALS: Ht 165.1 cm; Wt 77.3 kg
[~2022-12-19 18:31] MED LIST changes: +COLC0.6C3 MT; +HYDR-4009 PO; +MELO-104 MT; -NITR0.4T49 SL
[2022-12-19] MEDS ORDERED: ONDANSETRON HCL 4MG/2ML INJ IV STA (19:03)
[2022-12-19] MEDS ORDERED: MORPHINE SULFATE 4 MG/ML CPJ (NOT FOR IM USE) IV STA (19:03)
[2022-12-19] MEDS ORDERED: VANCOMYCIN 1G PREMIX 200 ML IV ONE (19:15)
[2022-12-19] MEDS ORDERED: SODIUM CHLORIDE 0.9% 1000ML BAG (SEPSIS BOLUS) IV ONE (19:15)
[2022-12-19] MEDS ORDERED: LEVOFLOXACIN 750MG PREMIX 150 ML IV ONE (19:15)
[2022-12-19 20:59] LABS: BASOPHILS % 0.3 % (0.0-2.0); EOSINOPHILS % 0.4 % (0.0-5.0); HEMATOCRIT. 46.3 % (36.0-48.0); HEMOGLOBIN. 15.5 g/dL (12.0-16.0); LYMPHOCYTES % 17.5 % (20.0-50.0); MEAN CORPUSCULAR HEMOGLOBIN 35.4 pg (28.0-32.0); MEAN CORPUSCULAR VOLUME 105.9 fL (81.0-99.0); MEAN PLATELET VOLUME 8.3 fl (7.4-10.4); MONOCYTES % 10.4 % (2.0-8.0); NEUTROPHILS % 71.4 % (40.0-76.0); PLATELET 250 x1000/uL (130-400); RED BLOOD CELL COUNT 4.37 mill/uL (4.2-5.4); RED CELL DISTRIBUTION WIDTH 13.2 % (11.6-14.6)
[2022-12-19 21:08] LABS: INR 1.1; PROTHROMBIN TIME 12.1 sec (9.6-11.0)
[2022-12-19 22:12] LABS: CHLORIDE 107 mEq/L (98-107)
[2022-12-19] MEDS ORDERED: FENTANYL CITRATE/PF 50MCG/ML 2ML VIAL IV NR (22:45)
[2022-12-19] MEDS ORDERED: LORAZEPAM 2MG/ML CPJ IV NR (22:45)
[2022-12-19] MEDS ORDERED: VANCOMYCIN 1G PREMIX 200 ML IV NR (23:00)
[2022-12-19] MEDS ORDERED: MORPHINE SULFATE 4 MG/ML CPJ (NOT FOR IM USE) IV NR (23:00)
[2022-12-19] MEDS ORDERED: ONDANSETRON HCL 4MG/2ML INJ IV NR (23:00)
[2022-12-19] MEDS ORDERED: LEVOFLOXACIN 750MG PREMIX 150 ML IV NR (23:00)
[2022-12-20] VITALS (8 sets, daily range): BP systolic 97–173; BP diastolic 59–78
[2022-12-20] MEDS ORDERED: CLONIDINE 0.1MG TABLET PO PRN (00:30)
[2022-12-20] MEDS ORDERED: IPRATROPIUM/ALBUTEROL 0.5-3(2.5)MG/3ML NEB NEB PRN (00:30)
[2022-12-20] MEDS ORDERED: ONDANSETRON HCL 4MG/2ML INJ IV PRN (00:30)
[2022-12-20] MEDS ORDERED: HYDRALAZINE 20MG/ML VIAL IV PRN (00:30)
[2022-12-20] MEDS ORDERED: ACETAMINOPHEN 325MG TABLET PO PRN ×2 (00:30)
[2022-12-20] MEDS: DEXT 5%/0.45% NACL 1000ML 1,000 ML IV SCH ×2 (02:03→21:47)
[2022-12-20] MEDS ORDERED: METOPROLOL TARTRATE 5MG/5ML VIAL IV NR (03:00)
[2022-12-20] MEDS ORDERED: LACTULOSE 20G/30ML UDC NG NR (03:15)
[2022-12-20] MEDS ORDERED: DEXTROSE 50% WATER 50ML SYRINGE IV PRN (03:45)
[2022-12-20 04:19] LABS: BG BASE EXCESS 0.2 mmol/L (-2.0-2.0); BG CARBOXYHEMOGLOBIN 0.1 % (0.5-1.5); BG DEOXYHEMOGLOBIN 2.6 % (0.0-5.0); BG FRACTION INSPIRED OXYGEN 21; BG HCO3 ACT 22.4 mmol/L (22.0-26.0); BG METHEMOGLOBIN 0.3 % (0.0-1.5); BG OXYGEN SATURATION 97.4 % (92.0-98.5); BG PCO2 29.8 mmHg (35.0-45.0); BG PH 7.494 (7.350-7.450); BG PO2 95.6 mmHg (75.0-100.0); BG SAMPLE SITE LEFT RADIAL; BG TOTAL HEMOGLOBIN 13.9 g/dL (12.0-18.0); BG VENT MODE ROOM AIR
[2022-12-20] MEDS ORDERED: POTASSIUM PHOS,M-BASIC-D-BASIC 20 MMOL in DEXT 5% WATER 243.3333 ML IV NR (06:30)
[2022-12-20 07:03] LABS: CLARITY URINE CLOUDY (CLEAR); COLOR URINE DARK YELLOW (YELLOW); KETONES URINE TRACE (NEGATIVE); LEUKOCYTE ESTERASE URINE 2+ (NEGATIVE); NITRITE URINE NEGATIVE (NEGATIVE); OCCULT BLOOD URINE NEGATIVE (NEGATIVE); PH URINE 5.5 (4.5-8.0); PROTEIN URINE 1+ (NEGATIVE); SPECIFIC GRAVITY URINE 1.029 (1.005-1.030)
[2022-12-20] MEDS: BLOOD SUGAR DIAGNOSTIC STRIP TEST SCH ×4 (07:06→21:36)
[2022-12-20] MEDS: INSULIN LISPRO 100 UNITS/ML SUBCUT SCH ×4 (07:20→21:00)
[2022-12-20] MEDS ORDERED: ASPIRIN 81MG EC TABLET PO SCH (09:00)
[2022-12-20] MEDS ORDERED: METOPROLOL SUCCINATE 50MG ER TABLET PO SCH (09:00)
[2022-12-20 09:10] LABS: BASOPHILS % 0.3 % (0.0-2.0); EOSINOPHILS % 0.4 % (0.0-5.0); HEMATOCRIT. 36.9 % (36.0-48.0); HEMOGLOBIN. 12.3 g/dL (12.0-16.0); LYMPHOCYTES % 14.6 % (20.0-50.0); MEAN CORPUSCULAR VOLUME 104.8 fL (81.0-99.0); MEAN PLATELET VOLUME 7.7 fl (7.4-10.4); MONOCYTES % 11.4 % (2.0-8.0); NEUTROPHILS % 73.3 % (40.0-76.0); PLATELET 213 x1000/uL (130-400); RED BLOOD CELL COUNT 3.52 mill/uL (4.2-5.4); RED CELL DISTRIBUTION WIDTH 13.3 % (11.6-14.6)
[2022-12-20 09:24] LABS: CHLORIDE 111 mEq/L (98-107)
[2022-12-20 09:41] LABS: HDL CHOLESTEROL 33 mg/dL (40-59); LDL CHOLESTEROL 77 mg/dL (5-100)
[2022-12-20] MEDS ORDERED: POVIDONE-IODINE 10% TOPICAL SOLN 240ML TOP NR (12:15)
[2022-12-20] MEDS: VANCOMYCIN 500MG PREMIX 100 ML IV SCH ×2 (12:53→23:26)
[2022-12-20] MEDS: ISOSORBIDE MONONITRATE 30MG TABLET SR 24HR PO SCH (13:09)
[2022-12-20] MEDS: ASPIRIN 81MG TABLET PO SCH (13:10)
[2022-12-20] MEDS: METOPROLOL TARTRATE 25MG TABLET PO SCH ×2 (13:10→21:46)
[2022-12-20] MEDS: CLOPIDOGREL 75MG TABLET PO SCH (13:10)
[2022-12-20] MEDS: PANTOPRAZOLE SODIUM 40 MG/VIAL IV SCH (13:11)
[2022-12-20] MEDS: ATORVASTATIN CALCIUM 40MG TABLET PO SCH (21:45)
[2022-12-20] MEDS: DOXAZOSIN MESYLATE 4MG TABLET PO SCH (21:46)
[2022-12-20] MEDS ORDERED: VANCOMYCIN 1.25GM PMX (XELLIA) 250 ML IV SCH (23:30)
[2022-12-20] MEDS ORDERED: LEVOFLOXACIN 500MG PREMIX 100 ML IV SCH (23:30)
[2022-12-21] VITALS: BP 119/56
[2022-12-21 04:00] VITALS: BP 132/58
[2022-12-21] MEDS: BLOOD SUGAR DIAGNOSTIC STRIP TEST SCH ×4 (06:50→20:46)
[2022-12-21] MEDS: INSULIN LISPRO 100 UNITS/ML SUBCUT SCH ×4 (07:19→20:46)
[2022-12-21 08:00] VITALS: BP 151/55
[2022-12-21] MEDS: PANTOPRAZOLE SODIUM 40 MG/VIAL IV SCH (09:20)
[2022-12-21] MEDS: ASPIRIN 81MG TABLET PO SCH (09:20)
[2022-12-21] MEDS: CLOPIDOGREL 75MG TABLET PO SCH (09:20)
[2022-12-21] MEDS: ISOSORBIDE MONONITRATE 30MG TABLET SR 24HR PO SCH (09:20)
[2022-12-21] MEDS: METOPROLOL TARTRATE 25MG TABLET PO SCH ×2 (09:21→20:46)
[2022-12-21 12:00] VITALS: BP 127/62
[2022-12-21 12:25] LABS: BASOPHILS % 0.1 % (0.0-2.0); EOSINOPHILS % 1.7 % (0.0-5.0); HEMATOCRIT. 31.1 % (36.0-48.0); HEMOGLOBIN. 10.5 g/dL (12.0-16.0); LYMPHOCYTES % 23.6 % (20.0-50.0); MEAN CORPUSCULAR HEMOGLOBIN 35.6 pg (28.0-32.0); MEAN CORPUSCULAR VOLUME 105.6 fL (81.0-99.0); MEAN PLATELET VOLUME 7.3 fl (7.4-10.4); MONOCYTES % 11.3 % (2.0-8.0); NEUTROPHILS % 63.3 % (40.0-76.0); PLATELET 171 x1000/uL (130-400); RED BLOOD CELL COUNT 2.95 mill/uL (4.2-5.4); RED CELL DISTRIBUTION WIDTH 13.3 % (11.6-14.6)
[2022-12-21 13:32] LABS: CHLORIDE 109 mEq/L (98-107)
[2022-12-21 13:40] LABS: PHOSPHORUS 1.8 mg/dL (2.5-4.9)
[2022-12-21] MEDS ORDERED: VANCOMYCIN 750MG PREMIX 150 ML IV SCH (16:00)
[2022-12-21 16:04] VITALS: BP 126/68
[2022-12-21] MEDS: DEXT 5%/0.45% NACL 1000ML 1,000 ML IV SCH (16:45)
[2022-12-21] MEDS: MENTHOL/LANOLIN/CALAMINE/ZN OX OINT 71GM TOP SCH ×2 (17:55→17:56)
[2022-12-21 20:00] VITALS: BP 123/66
[2022-12-21] MEDS: DOXAZOSIN MESYLATE 4MG TABLET PO SCH (20:45)
[2022-12-21] MEDS: ATORVASTATIN CALCIUM 40MG TABLET PO SCH (20:46)
[2022-12-22 00:09] VITALS: BP 126/81
[2022-12-22 04:10] VITALS: BP 125/56
[2022-12-22 05:50] LABS: BASOPHILS % 0.3 % (0.0-2.0); EOSINOPHILS % 1.7 % (0.0-5.0); HEMATOCRIT. 33.2 % (36.0-48.0); HEMOGLOBIN. 11.3 g/dL (12.0-16.0); LYMPHOCYTES % 26.3 % (20.0-50.0); MEAN CORPUSCULAR HEMOGLOBIN 35.7 pg (28.0-32.0); MEAN CORPUSCULAR VOLUME 105.4 fL (81.0-99.0); MEAN PLATELET VOLUME 7.7 fl (7.4-10.4); MONOCYTES % 11.3 % (2.0-8.0); NEUTROPHILS % 60.4 % (40.0-76.0); PLATELET 162 x1000/uL (130-400); RED BLOOD CELL COUNT 3.16 mill/uL (4.2-5.4)
[2022-12-22 06:09] LABS: CHLORIDE 112 mEq/L (98-107)
[2022-12-22 06:22] LABS: PHOSPHORUS 1.9 mg/dL (2.5-4.9)
[2022-12-22] MEDS: BLOOD SUGAR DIAGNOSTIC STRIP TEST SCH ×3 (06:54→20:15)
[2022-12-22] MEDS: INSULIN LISPRO 100 UNITS/ML SUBCUT SCH ×3 (06:54→22:20)
[2022-12-22 08:00] VITALS: BP 145/65
[2022-12-22] MEDS: MENTHOL/LANOLIN/CALAMINE/ZN OX OINT 71GM TOP SCH ×2 (09:00→17:00)
[2022-12-22] MEDS: PANTOPRAZOLE SODIUM 40 MG/VIAL IV SCH (10:18)
[2022-12-22] MEDS: ISOSORBIDE MONONITRATE 30MG TABLET SR 24HR PO SCH (10:18)
[2022-12-22] MEDS: METOPROLOL TARTRATE 25MG TABLET PO SCH ×2 (10:19→22:19)
[2022-12-22] MEDS: CLOPIDOGREL 75MG TABLET PO SCH (10:19)
[2022-12-22] MEDS: ASPIRIN 81MG TABLET PO SCH (10:19)
[2022-12-22 12:00] VITALS: BP 116/82
[2022-12-22] MEDS: DEXT 5%/0.45% NACL 1000ML 1,000 ML IV SCH (14:49)
[2022-12-22 20:00] VITALS: BP 150/75
[2022-12-22] MEDS: DOXAZOSIN MESYLATE 4MG TABLET PO SCH (22:19)
[2022-12-22] MEDS: ATORVASTATIN CALCIUM 40MG TABLET PO SCH (22:19)
[2022-12-23] VITALS (7 sets, daily range): BP systolic 105–159; BP diastolic 32–97
[2022-12-23] MEDS ORDERED: POTASSIUM PHOS,M-BASIC-D-BASIC 20 MMOL in DEXT 5% WATER 243.3333 ML IV NR ×2
[2022-12-23] MEDS ORDERED: MAGNESIUM 2 G PREMIX 50 ML IV NR
[2022-12-23 05:30] LABS: HEMATOCRIT. 31.2 % (36.0-48.0); HEMOGLOBIN. 10.8 g/dL (12.0-16.0); MEAN CORPUSCULAR HEMOGLOBIN 36.3 pg (28.0-32.0); MEAN PLATELET VOLUME 8.1 fl (7.4-10.4); PLATELET 206 x1000/uL (130-400); RED BLOOD CELL COUNT 2.97 mill/uL (4.2-5.4); RED CELL DISTRIBUTION WIDTH 13.2 % (11.6-14.6)
[2022-12-23 05:36] LABS: CHLORIDE 110 mEq/L (98-107)
[2022-12-23 05:40] LABS: PHOSPHORUS 2.6 mg/dL (2.5-4.9)
[2022-12-23] MEDS: BLOOD SUGAR DIAGNOSTIC STRIP TEST SCH ×3 (06:42→16:50)
[2022-12-23] MEDS: INSULIN LISPRO 100 UNITS/ML SUBCUT SCH ×3 (06:42→17:09)
[2022-12-23] MEDS: DEXT 5%/0.45% NACL 1000ML 1,000 ML IV SCH (08:30)
[2022-12-23] MEDS: ISOSORBIDE MONONITRATE 30MG TABLET SR 24HR PO SCH (09:00)
[2022-12-23] MEDS: MENTHOL/LANOLIN/CALAMINE/ZN OX OINT 71GM TOP SCH ×2 (09:00→17:00)
[2022-12-23] MEDS ORDERED: ENOXAPARIN 40MG/0.4ML SYR SUBCUT SCH (10:00)
[2022-12-23] MEDS ORDERED: MEGESTROL ACETATE 400 MG/10 ML UDC PO SCH (11:00)
[2022-12-23] MEDS: PANTOPRAZOLE SODIUM 40 MG/VIAL IV SCH (11:36)
[2022-12-23] MEDS: ASPIRIN 81MG TABLET PO SCH (11:36)
[2022-12-23] MEDS: METOPROLOL TARTRATE 25MG TABLET PO SCH (11:37)
[2022-12-23] MEDS: CLOPIDOGREL 75MG TABLET PO SCH (11:38)
[2022-12-23] MEDS ORDERED: METO25TA6 PO (13:25)
[2022-12-23] MEDS ORDERED: MEGE400O4 PO (13:25)
[2022-12-23 14:18] LABS: PLATELET ESTIMATE NORMAL
[2022-12-24] MEDS ORDERED: FAMOTIDINE 20MG/2ML VIAL IV SCH (09:00)
[2022-12-25] MEDS ORDERED: AMIN30LI19 PO (20:49)
[2022-12-25] MEDS ORDERED: ATOR40TA70 MT (20:49)
[2022-12-25] MEDS ORDERED: POTA99TA25 PO (20:49)
[2022-12-25] MEDS ORDERED: FOLI-43 MT (20:49)
[2022-12-25] MEDS ORDERED: SIME80TA15 PO (20:49)
[2022-12-25] MEDS ORDERED: GABA-529 MT (20:49)
[2022-12-25] MEDS ORDERED: APIX5TAB MT (20:49)
[2022-12-25] MEDS ORDERED: HYDR-4133 PO (20:49)
[2022-12-25] MEDS ORDERED: ISOS60TA76 PO (20:49)
[2022-12-25] MEDS ORDERED: INSLIS SUBCUT (20:49)
[2022-12-25] MEDS ORDERED: TRAM50TA3 MT (20:51)
[2022-12-25] MEDS ORDERED: TAMS-11 PO (20:51)
== END 2022-12-23 20:45 | DRG 871 ==
LOC: ER 18:31 → MICUSO 22:40 → SUPCPDRO 23:48 → 3WST 12-20 01:25
PROVIDERS: ADMIT Internal Medicine; ATTEND Internal Medicine
PROC: 4A10X4Z Monitoring of Central Nervous Electrical Activity, External Approach (ICD-10-PCS; principal; 2022-12-22)
DX: A41.9 Sepsis, unspecified organism (principal); G92.8 Other toxic encephalopathy; L89.153 Pressure ulcer of sacral region, stage 3; R65.21 Severe sepsis with septic shock; I47.1 Supraventricular tachycardia; N39.0 Urinary tract infection, site not specified; E78.2 Mixed hyperlipidemia; E11.42 Type 2 diabetes mellitus with diabetic polyneuropathy; E11.51 Type 2 diabetes mellitus with diabetic peripheral angiopathy without gangrene; E86.0 Dehydration; I10 Essential (primary) hypertension; E83.52 Hypercalcemia; I25.10 Atherosclerotic heart disease of native coronary artery without angina pectoris; Z79.899 Other long term (current) drug therapy; Z88.0 Allergy status to penicillin; Z79.82 Long term (current) use of aspirin; Z79.02 Long term (current) use of antithrombotics/antiplatelets; Z91.199 Patient's noncompliance with other medical treatment and regimen due to unspecified reason; Z82.49 Family history of ischemic heart disease and other diseases of the circulatory system
CPT/HCPCS: 36415; 36600; 70551; 71045; 71250; 74176; 80048; 80053; 80061; 80202; 81003; 82040; 82140; 82330; 82375; 82805; 82962; 83036; 83605; 83735; 83970; 84100; 84134; 84145; 84439; 84443; 84484; 85025; 85379; 87804; 92610; 93005; 93970; 95816; 97162; 99285; C9113; J0360; J1650; J1956; J2060; J2270; J2405; J3010; J3370; J3475; J3490; J7030; J7060; A4315

== ENCOUNTER 2023-01-29 21:13 | Inpatient (IN) | payer MEDICARE, MEDICAID ==
[~2023-01-29] VITALS: Ht 152.4 cm; Wt 77.8 kg
[~2023-01-29 21:13] MED LIST changes: +AMIN30LI19 PO; +APIX5TAB MT; +ATOR40TA70 MT; -COLC0.6C3 MT; +FOLI-43 MT; +GABA-529 MT; -HYDR-4009 PO; +HYDR-4133 PO; +INSLIS SUBCUT; -ISOS30TA91 PO; +ISOS60TA76 PO; +MEGE400O4 PO; -MELO-104 MT; +METO25TA6 PO; +POTA99TA25 PO; -RANO500T3 PO; +SIME80TA15 PO; +TAMS-11 PO; +TRAM50TA3 MT
[2023-01-29] MEDS ORDERED: SODIUM CHLORIDE 0.9% 1000ML BAG (SEPSIS BOLUS) IV ONE ×2 (21:30→21:45)
[2023-01-29] MEDS ORDERED: VANCOMYCIN 1G PREMIX 200 ML IV ONE (21:30)
[2023-01-29] MEDS ORDERED: PIPERACILLIN/TAZ 3.375G PREMIX 50 ML IV ONE (21:30)
[2023-01-29 21:40] LABS: BG BASE EXCESS -0.3 mmol/L (-2.0-2.0); BG CARBOXYHEMOGLOBIN 0.1 % (0.5-1.5); BG DEOXYHEMOGLOBIN 7.2 % (0.0-5.0); BG METHEMOGLOBIN 0.2 % (0.0-1.5); BG OXYGEN SATURATION 92.8 % (92.0-98.5); BG OXYHEMOGLOBIN 92.5 % (94.0-97.0); BG PCO2 24.8 mmHg (35.0-45.0); BG PH 7.545 (7.350-7.450); BG PO2 63.7 mmHg (75.0-100.0); BG SAMPLE SITE LEFT BRACHIAL; BG TOTAL HEMOGLOBIN 11.4 g/dL (12.0-18.0); BG VENT MODE ROOM AIR
[2023-01-29] MEDS ORDERED: MEROPENEM 1,000 MG in SODIUM CHLORIDE 0.9% 100 ML IV ONE (21:45)
[2023-01-29] MEDS ORDERED: ACETAMINOPHEN 650MG SUPP PR ONE (21:45)
[2023-01-29] MEDS: NOREPINEPHRINE 8MG/250ML PMX 250 ML IV SCH (22:35)
[2023-01-29] MEDS ORDERED: SUCCINYLCHOLINE CHLORIDE 200MG/10ML IV ONE (22:45)
[2023-01-29] MEDS ORDERED: FENTANYL 2500MCG/250ML PMX 250 ML IV ONE (22:45)
[2023-01-29] MEDS ORDERED: FENTANYL CITRATE/PF 50MCG/ML 2ML VIAL IV ONE (22:45)
[2023-01-29] MEDS ORDERED: MIDAZOLAM 100MG/100ML PMX 100 ML IV PRN (22:45)
[2023-01-29] MEDS ORDERED: ETOMIDATE 2MG/ML 10ML VIAL IV ONE (22:45)
[2023-01-29 23:31] LABS: HEMATOCRIT. 25.7 % (36.0-48.0); HEMOGLOBIN. 8.5 g/dL (12.0-16.0); MEAN CORPUSCULAR HEMOGLOBIN 35.5 pg (28.0-32.0); MEAN CORPUSCULAR VOLUME 107.3 fL (81.0-99.0); PLATELET 218 x1000/uL (130-400); RED CELL DISTRIBUTION WIDTH 16.8 % (11.6-14.6)
[2023-01-29 23:40] LABS: INR 1.7; PROTHROMBIN TIME 17.2 sec (9.6-11.0)
[2023-01-29 23:46] LABS: CHLORIDE 114 mEq/L (98-107)
[2023-01-29 23:57] LABS: CREATINE KINASE 72 IU/L (26-192)
[2023-01-30] VITALS (44 sets, daily range): BP systolic 108–172; BP diastolic 52–83; PULSE 97–123; RESP 13–30; TEMP 97.7–99.2; O2SAT 98–99
[2023-01-30] MEDS ORDERED: NOREPINEPHRINE 8MG/250ML PMX 250 ML IV PRN (04:30)
[2023-01-30 04:31] LABS: CLARITY URINE CLEAR (CLEAR); COLOR URINE YELLOW (YELLOW); KETONES URINE TRACE (NEGATIVE); LEUKOCYTE ESTERASE URINE TRACE (NEGATIVE); NITRITE URINE NEGATIVE (NEGATIVE); OCCULT BLOOD URINE NEGATIVE (NEGATIVE); PH URINE 5.5 (4.5-8.0); PROTEIN URINE TRACE (NEGATIVE); SPECIFIC GRAVITY URINE 1.029 (1.005-1.030)
[2023-01-30] MEDS ORDERED: NOREPINEPHRINE 8MG/250ML PMX 250 ML IV SCH (04:45)
[2023-01-30] MEDS ORDERED: NOREPINEPHRINE 8 MG in DEXTROSE 5% WATER 250 ML IV PRN (04:45)
[2023-01-30] MEDS ORDERED: NOREPINEPHRINE 8MG/250ML PMX 250ML IV PRN (04:45)
[2023-01-30] MEDS: NOREPINEPHRINE 8MG/250ML PMX 250 ML IV SCH (04:49)
[2023-01-30 06:20] LABS: PLATELET ESTIMATE NORMAL
[2023-01-30] MEDS ORDERED: MAGNESIUM/ALUMINUM HYDROXIDE/SIMETHICONE 30ML UDC PO PRN (09:00)
[2023-01-30] MEDS ORDERED: FLUCONAZOLE/NS(NEO) 2MG/ML IVPB IV SCH (09:15)
[2023-01-30] MEDS ORDERED: PANTOPRAZOLE 40MG DR TABLET PO SCH (09:30)
[2023-01-30 10:00] LABS: BASOPHILS % 0.1 % (0.0-2.0); HEMOGLOBIN. 8.2 g/dL (12.0-16.0); LYMPHOCYTES % 13.7 % (20.0-50.0); MEAN CORPUSCULAR HEMOGLOBIN 36.2 pg (28.0-32.0); MEAN CORPUSCULAR VOLUME 106.3 fL (81.0-99.0); MEAN PLATELET VOLUME 7.8 fl (7.4-10.4); NEUTROPHILS % 77.2 % (40.0-76.0); PLATELET 205 x1000/uL (130-400); RED BLOOD CELL COUNT 2.26 mill/uL (4.2-5.4); RED CELL DISTRIBUTION WIDTH 16.5 % (11.6-14.6)
[2023-01-30 10:11] LABS: CHLORIDE 118 mEq/L (98-107)
[2023-01-30] MEDS ORDERED: MEROPENEM 1000MG in NORMAL SALINE 100ML IV SCH (10:30)
[2023-01-30] MEDS: MULTIVITAMINS,THER W-MINERALS TABLET GT SCH (10:39)
[2023-01-30] MEDS: ASCORBIC ACID 500 MG TABLET GT SCH (10:39)
[2023-01-30] MEDS: ENOXAPARIN 40MG/0.4ML SYR SUBCUT SCH (10:39)
[2023-01-30] MEDS: FLUCONAZOLE 200 MG/100ML BAG 100 ML IV SCH (10:40)
[2023-01-30] MEDS: ACETAMINOPHEN 650MG/20.3ML UDC GT PRN (10:40)
[2023-01-30 11:35] LABS: TOTAL IRON BINDING CAPACITY 121 ug/dL (250-450)
[2023-01-30] MEDS ORDERED: DEXTROSE 50% WATER 50ML SYRINGE IV PRN (11:45)
[2023-01-30] MEDS: BLOOD SUGAR DIAGNOSTIC STRIP TEST SCH ×3 (12:00→23:41)
[2023-01-30] MEDS: INSULIN LISPRO 100 UNITS/ML SUBCUT SCH ×3 (12:00→23:41)
[2023-01-30] MEDS: FERROUS SULFATE 300MG/5ML UDC GT SCH ×2 (12:14→18:05)
[2023-01-30] MEDS ORDERED: PIPERACILLIN/TAZOBACTAM 3.375 G in DEXTROSE 5% WATER 50 ML IV SCH (14:00)
[2023-01-30] MEDS: IPRATROPIUM/ALBUTEROL 0.5-3(2.5)MG/3ML NEB HHN SCH ×2 (14:43→20:29)
[2023-01-30] MEDS ORDERED: POTASSIUM CHLORIDE INJ 40 MEQ in DEXT 5% WATER 250 ML IV ONE (15:15)
[2023-01-30] MEDS: KCL 20MEQ/100ML X 2 FOR TOTAL KCL 40MEQ/200ML IV SCH ×2 (16:30→18:05)
[2023-01-30 16:50] LABS: CLARITY URINE CLOUDY (CLEAR); COLOR URINE YELLOW (YELLOW); PROTEIN URINE TRACE (NEGATIVE); SPECIFIC GRAVITY URINE 1.028 (1.005-1.030)
[2023-01-30 16:51] LABS: KETONES URINE TRACE (NEGATIVE); LEUKOCYTE ESTERASE URINE TRACE (NEGATIVE); NITRITE URINE NEGATIVE (NEGATIVE); OCCULT BLOOD URINE NEGATIVE (NEGATIVE)
[2023-01-30] MEDS: MAGNESIUM 2 G PREMIX 50 ML IV NR ×2 (17:00→18:12)
[2023-01-30] MEDS: MEROPENEM 1000MG in NORMAL SALINE 100ML IV SCH (21:19)
[2023-01-30 23:36] LABS: CREATINE KINASE MB FRACTION 3.5 ng/mL (0.5-3.6)
[2023-01-31] VITALS (12 sets, daily range): BP systolic 93–184; BP diastolic 56–99; PULSE 58–118; RESP 18–20; TEMP 98.2–99.5; O2SAT 95–100
[2023-01-31] MEDS: IPRATROPIUM/ALBUTEROL 0.5-3(2.5)MG/3ML NEB HHN SCH ×6 (01:24→20:45)
[2023-01-31] MEDS ORDERED: HYDRALAZINE HCL 10MG TABLET GT PRN (02:30)
[2023-01-31] MEDS: METOPROLOL TARTRATE 25MG TABLET GT SCH ×4 (02:30→22:18)
[2023-01-31] MEDS: INSULIN LISPRO 100 UNITS/ML SUBCUT SCH ×3 (06:00→16:59)
[2023-01-31] MEDS: BLOOD SUGAR DIAGNOSTIC STRIP TEST SCH ×3 (06:19→16:58)
[2023-01-31 07:27] LABS: CREATINE KINASE MB FRACTION 3.1 ng/mL (0.5-3.6)
[2023-01-31] MEDS: LANSOPRAZOLE 30MG DR CAPSULE GT SCH ×2 (07:40→12:29)
[2023-01-31] MEDS: FERROUS SULFATE 300MG/5ML UDC GT SCH ×3 (08:30→17:03)
[2023-01-31] MEDS: MULTIVITAMINS,THER W-MINERALS TABLET GT SCH (08:33)
[2023-01-31] MEDS: MEROPENEM 1000MG in NORMAL SALINE 100ML IV SCH ×2 (08:34→21:32)
[2023-01-31] MEDS: AMLODIPINE 10MG TABLET PO SCH (08:34)
[2023-01-31] MEDS: ASCORBIC ACID 500 MG TABLET GT SCH (08:35)
[2023-01-31] MEDS: ENOXAPARIN 40MG/0.4ML SYR SUBCUT SCH (08:38)
[2023-01-31] MEDS ORDERED: ASCORBIC ACID 500MG/5ML 120ML GT SCH (09:00)
[2023-01-31] MEDS: FLUCONAZOLE 200 MG/100ML BAG 100 ML IV SCH (09:22)
[2023-01-31] MEDS: ACETAMINOPHEN 650MG/20.3ML UDC GT PRN (10:39)
[2023-01-31 10:50] LABS: BASOPHILS % 0.1 % (0.0-2.0); EOSINOPHILS % 1.1 % (0.0-5.0); HEMATOCRIT. 21.7 % (36.0-48.0); HEMOGLOBIN. 7.2 g/dL (12.0-16.0); LYMPHOCYTES % 8.8 % (20.0-50.0); MEAN CORPUSCULAR HEMOGLOBIN 35.7 pg (28.0-32.0); MEAN PLATELET VOLUME 7.7 fl (7.4-10.4); MONOCYTES % 5.9 % (2.0-8.0); NEUTROPHILS % 84.1 % (40.0-76.0); PLATELET 202 x1000/uL (130-400); RED BLOOD CELL COUNT 2.02 mill/uL (4.2-5.4); RED CELL DISTRIBUTION WIDTH 17.5 % (11.6-14.6)
[2023-01-31 10:55] LABS: MEAN CORPUSCULAR VOLUME 107.5 fL (81.0-99.0)
[2023-01-31 11:18] LABS: CHLORIDE 119 mEq/L (98-107)
[2023-01-31] MEDS ORDERED: NALOXONE HCL 0.4MG/ML VIAL IV PRN (11:45)
[2023-01-31] MEDS: TRAMADOL 50MG TABLET PO PRN (12:54)
[2023-01-31] MEDS: GABAPENTIN SOLN 300MG/6ML UDC GT SCH ×2 (14:00→22:20)
[2023-01-31] MEDS ORDERED: GABAPENTIN 300MG CAPSULE PO SCH (14:00)
[2023-01-31] MEDS: PANTOPRAZOLE SODIUM 40 MG/VIAL IV SCH (17:03)
[2023-01-31 21:23] LABS: HEMATOCRIT 23.6 % (36.0-48.0); HEMOGLOBIN 7.7 g/dL (12.0-16.0)
[2023-01-31 22:00] LABS: FOLIC ACID (FOLATE) SERUM 11.1 ng/mL (>5.38)
[2023-02-01] VITALS (12 sets, daily range): BP systolic 97–168; BP diastolic 49–69; PULSE 79–111; RESP 17–21; TEMP 96.6–98.6; O2SAT 95–98
[2023-02-01] MEDS: IPRATROPIUM/ALBUTEROL 0.5-3(2.5)MG/3ML NEB HHN SCH ×6 (00:31→21:12)
[2023-02-01 05:38] LABS: CHLORIDE 117 mEq/L (98-107)
[2023-02-01 05:43] LABS: BASOPHILS % 0.1 % (0.0-2.0); HEMOGLOBIN. 7.7 g/dL (12.0-16.0); LYMPHOCYTES % 7.3 % (20.0-50.0); MEAN CORPUSCULAR HEMOGLOBIN 36.5 pg (28.0-32.0); MEAN CORPUSCULAR VOLUME 109.2 fL (81.0-99.0); MEAN PLATELET VOLUME 8.6 fl (7.4-10.4); MONOCYTES % 5.3 % (2.0-8.0); NEUTROPHILS % 86.3 % (40.0-76.0); PLATELET 193 x1000/uL (130-400); RED BLOOD CELL COUNT 2.11 mill/uL (4.2-5.4)
[2023-02-01] MEDS: GABAPENTIN SOLN 300MG/6ML UDC GT SCH ×3 (06:32→21:39)
[2023-02-01] MEDS: BLOOD SUGAR DIAGNOSTIC STRIP TEST SCH ×5 (06:38→23:50)
[2023-02-01] MEDS: INSULIN LISPRO 100 UNITS/ML SUBCUT SCH ×5 (06:42→23:50)
[2023-02-01] MEDS: AMLODIPINE 10MG TABLET PO SCH (09:00)
[2023-02-01] MEDS: MEROPENEM 1000MG in NORMAL SALINE 100ML IV SCH ×2 (09:19→21:39)
[2023-02-01] MEDS: MULTIVITAMINS,THER W-MINERALS TABLET GT SCH (09:20)
[2023-02-01] MEDS: PANTOPRAZOLE SODIUM 40 MG/VIAL IV SCH (09:20)
[2023-02-01] MEDS: FERROUS SULFATE 300MG/5ML UDC GT SCH ×3 (09:22→18:10)
[2023-02-01] MEDS: ENOXAPARIN 40MG/0.4ML SYR SUBCUT SCH (09:22)
[2023-02-01] MEDS: ASCORBIC ACID 500 MG TABLET GT SCH (09:24)
[2023-02-01] MEDS: FLUCONAZOLE 200 MG/100ML BAG 100 ML IV SCH (10:07)
[2023-02-01] MEDS: METOPROLOL TARTRATE 25MG TABLET GT SCH (21:39)
[2023-02-02] VITALS (12 sets, daily range): BP systolic 104–142; BP diastolic 52–69; PULSE 76–110; RESP 15–22; TEMP 97.2–98.1; O2SAT 94–99
[2023-02-02] MEDS: IPRATROPIUM/ALBUTEROL 0.5-3(2.5)MG/3ML NEB HHN SCH ×7 (00:33→23:54)
[2023-02-02] MEDS: GABAPENTIN SOLN 300MG/6ML UDC GT SCH ×3 (05:12→22:01)
[2023-02-02] MEDS: BLOOD SUGAR DIAGNOSTIC STRIP TEST SCH ×4 (05:12→23:19)
[2023-02-02] MEDS: INSULIN LISPRO 100 UNITS/ML SUBCUT SCH ×4 (05:13→23:20)
[2023-02-02 08:09] LABS: BASOPHILS % 0.3 % (0.0-2.0); CHLORIDE 115 mEq/L (98-107); EOSINOPHILS % 1.5 % (0.0-5.0); HEMOGLOBIN. 7.8 g/dL (12.0-16.0); LYMPHOCYTES % 10.1 % (20.0-50.0); MEAN CORPUSCULAR HEMOGLOBIN 35.9 pg (28.0-32.0); MEAN CORPUSCULAR VOLUME 110.5 fL (81.0-99.0); MEAN PLATELET VOLUME 8.6 fl (7.4-10.4); MONOCYTES % 4.3 % (2.0-8.0); NEUTROPHILS % 83.8 % (40.0-76.0); PLATELET 212 x1000/uL (130-400); RED BLOOD CELL COUNT 2.17 mill/uL (4.2-5.4); RED CELL DISTRIBUTION WIDTH 18.1 % (11.6-14.6)
[2023-02-02] MEDS: ASCORBIC ACID 500 MG TABLET GT SCH (09:00)
[2023-02-02] MEDS: FERROUS SULFATE 300MG/5ML UDC GT SCH ×3 (10:18→17:39)
[2023-02-02] MEDS: ENOXAPARIN 40MG/0.4ML SYR SUBCUT SCH (10:18)
[2023-02-02] MEDS: METOPROLOL TARTRATE 25MG TABLET GT SCH ×2 (10:19→20:13)
[2023-02-02] MEDS: MULTIVITAMINS,THER W-MINERALS TABLET GT SCH (10:19)
[2023-02-02] MEDS: AMLODIPINE 10MG TABLET PO SCH (10:19)
[2023-02-02] MEDS: MEROPENEM 1000MG in NORMAL SALINE 100ML IV SCH ×2 (10:20→22:01)
[2023-02-02] MEDS: FLUCONAZOLE 200 MG/100ML BAG 100 ML IV SCH (10:20)
[2023-02-02] MEDS: PANTOPRAZOLE SODIUM 40 MG/VIAL IV SCH (10:21)
[2023-02-03] VITALS (12 sets, daily range): BP systolic 89–154; BP diastolic 38–86; PULSE 63–125; RESP 16–63; TEMP 96.8–98.8; O2SAT 92–99
[2023-02-03] MEDS: IPRATROPIUM/ALBUTEROL 0.5-3(2.5)MG/3ML NEB HHN SCH ×5 (04:33→21:24)
[2023-02-03 05:53] LABS: BASOPHILS % 0.2 % (0.0-2.0); HEMATOCRIT. 25.3 % (36.0-48.0); HEMOGLOBIN. 8.3 g/dL (12.0-16.0); LYMPHOCYTES % 12.1 % (20.0-50.0); MEAN CORPUSCULAR HEMOGLOBIN 35.9 pg (28.0-32.0); MEAN CORPUSCULAR VOLUME 109.2 fL (81.0-99.0); MONOCYTES % 4.1 % (2.0-8.0); NEUTROPHILS % 82.6 % (40.0-76.0); PLATELET 213 x1000/uL (130-400); RED BLOOD CELL COUNT 2.32 mill/uL (4.2-5.4); RED CELL DISTRIBUTION WIDTH 17.9 % (11.6-14.6)
[2023-02-03 05:59] LABS: PROTHROMBIN TIME 10.9 sec (9.6-11.0)
[2023-02-03] MEDS: INSULIN LISPRO 100 UNITS/ML SUBCUT SCH ×3 (06:00→18:00)
[2023-02-03 06:01] LABS: CHLORIDE 108 mEq/L (98-107)
[2023-02-03] MEDS: BLOOD SUGAR DIAGNOSTIC STRIP TEST SCH ×3 (06:20→18:00)
[2023-02-03] MEDS: GABAPENTIN SOLN 300MG/6ML UDC GT SCH ×3 (06:20→22:09)
[2023-02-03] MEDS: AMLODIPINE 10MG TABLET PO SCH ×2 (09:00→09:06)
[2023-02-03] MEDS: METOPROLOL TARTRATE 25MG TABLET GT SCH ×2 (09:00→21:00)
[2023-02-03] MEDS: ASCORBIC ACID 500 MG TABLET GT SCH (09:06)
[2023-02-03] MEDS: FERROUS SULFATE 300MG/5ML UDC GT SCH ×3 (09:06→18:04)
[2023-02-03] MEDS: MULTIVITAMINS,THER W-MINERALS TABLET GT SCH (09:06)
[2023-02-03] MEDS: ENOXAPARIN 40MG/0.4ML SYR SUBCUT SCH (09:07)
[2023-02-03] MEDS: MEROPENEM 1000MG in NORMAL SALINE 100ML IV SCH (09:35)
[2023-02-03] MEDS: FLUCONAZOLE 200 MG/100ML BAG 100 ML IV SCH (09:35)
[2023-02-03] MEDS: PANTOPRAZOLE SODIUM 40 MG/VIAL IV SCH (09:35)
[2023-02-03] MEDS ORDERED: SENN1TAB35 PO (11:36)
[2023-02-03] MEDS ORDERED: AMLO10TA80 PO (11:36)
[2023-02-03] MEDS: DOCUSATE SODIUM SUGAR FREE 100MG/10ML UDC NG SCH ×2 (13:17→22:09)
[2023-02-03] MEDS ORDERED: SENNOSIDES/DOCUSATE SOD 8.6/50MG TABLET PO SCH (21:00)
[2023-02-04] VITALS: BP 110/54; PULSE 125; RESP 18; TEMP 98.7
[2023-02-04] MEDS: BLOOD SUGAR DIAGNOSTIC STRIP TEST SCH ×2 (00:45→06:00)
[2023-02-04] MEDS: TRAMADOL 50MG TABLET PO PRN (00:48)
[2023-02-04] MEDS: IPRATROPIUM/ALBUTEROL 0.5-3(2.5)MG/3ML NEB HHN SCH ×2 (01:53→04:52)
[2023-02-04 01:54] VITALS: PULSE 70; RESP 16; O2SAT 94
[2023-02-04 04:00] VITALS: BP 108/70; PULSE 129; RESP 20; TEMP 98.6
[2023-02-04 04:52] VITALS: PULSE 64; RESP 16; O2SAT 95
[2023-02-04 06:21] LABS: BASOPHILS % 0.4 % (0.0-2.0); EOSINOPHILS % 0.5 % (0.0-5.0); HEMATOCRIT. 25.7 % (36.0-48.0); HEMOGLOBIN. 8.7 g/dL (12.0-16.0); LYMPHOCYTES % 19.5 % (20.0-50.0); MEAN CORPUSCULAR HEMOGLOBIN 36.6 pg (28.0-32.0); MEAN CORPUSCULAR VOLUME 107.7 fL (81.0-99.0); MEAN PLATELET VOLUME 8.3 fl (7.4-10.4); NEUTROPHILS % 72.6 % (40.0-76.0); PLATELET 242 x1000/uL (130-400); RED BLOOD CELL COUNT 2.38 mill/uL (4.2-5.4); RED CELL DISTRIBUTION WIDTH 17.5 % (11.6-14.6)
[2023-02-04 06:34] LABS: CHLORIDE 109 mEq/L (98-107)
[2023-02-04] MEDS: GABAPENTIN SOLN 300MG/6ML UDC GT SCH (07:05)
[2023-02-04 08:02] VITALS: BP 93/73; PULSE 127; RESP 20; TEMP 98.2
[2023-02-04] MEDS: PANTOPRAZOLE SODIUM 40 MG/VIAL IV SCH (08:20)
[2023-02-04] MEDS: ASCORBIC ACID 500 MG TABLET GT SCH (08:21)
[2023-02-04] MEDS: DOCUSATE SODIUM SUGAR FREE 100MG/10ML UDC NG SCH (08:21)
[2023-02-04] MEDS: FERROUS SULFATE 300MG/5ML UDC GT SCH (08:21)
[2023-02-04] MEDS: MULTIVITAMINS,THER W-MINERALS TABLET GT SCH (08:21)
[2023-02-04] MEDS: ENOXAPARIN 40MG/0.4ML SYR SUBCUT SCH (08:24)
[2023-02-04] MEDS: INSULIN LISPRO 100 UNITS/ML SUBCUT SCH ×2 (08:26)
[2023-02-04] MEDS ORDERED: CLOPIDOGREL 75MG TABLET PO SCH (10:00)
[2023-02-04] MEDS ORDERED: APIXABAN 5 MG TABLET PO SCH (17:00)
== END 2023-02-04 10:30 | DRG 871 ==
LOC: ER 21:13 → MICUSO 22:41 → EDBEDREQ 22:44 → EDBEDREQTM 22:44 → MICUSO 01-30 04:10 → 7WST 01-30 15:54
PROVIDERS: ADMIT Internal Medicine; ATTEND Internal Medicine
DX: A41.9 Sepsis, unspecified organism (principal); E43 Unspecified severe protein-calorie malnutrition; G92.8 Other toxic encephalopathy; R65.21 Severe sepsis with septic shock; J96.01 Acute respiratory failure with hypoxia; J69.0 Pneumonitis due to inhalation of food and vomit; I47.1 Supraventricular tachycardia; J44.1 Chronic obstructive pulmonary disease with (acute) exacerbation; N39.0 Urinary tract infection, site not specified; I82.C11 Acute embolism and thrombosis of right internal jugular vein; E86.0 Dehydration; E87.6 Hypokalemia; L89.90 Pressure ulcer of unspecified site, unspecified stage; Z93.1 Gastrostomy status; D53.9 Nutritional anemia, unspecified; K57.30 Diverticulosis of large intestine without perforation or abscess without bleeding; K20.90 Esophagitis, unspecified without bleeding; K29.80 Duodenitis without bleeding; Z68.33 Body mass index [BMI] 33.0-33.9, adult; K44.9 Diaphragmatic hernia without obstruction or gangrene; E86.1 Hypovolemia; Z20.822 Contact with and (suspected) exposure to COVID-19; F03.90 Unspecified dementia, unspecified severity, without behavioral disturbance, psychotic disturbance, mood disturbance, and anxiety; E11.65 Type 2 diabetes mellitus with hyperglycemia; I25.10 Atherosclerotic heart disease of native coronary artery without angina pectoris; I11.0 Hypertensive heart disease with heart failure; I50.9 Heart failure, unspecified; R13.10 Dysphagia, unspecified; R79.1 Abnormal coagulation profile; E11.51 Type 2 diabetes mellitus with diabetic peripheral angiopathy without gangrene; K29.70 Gastritis, unspecified, without bleeding; N28.1 Cyst of kidney, acquired; Z79.01 Long term (current) use of anticoagulants; Z79.4 Long term (current) use of insulin; Z79.899 Other long term (current) drug therapy; Z82.49 Family history of ischemic heart disease and other diseases of the circulatory system; Z86.711 Personal history of pulmonary embolism; Z86.73 Personal history of transient ischemic attack (TIA), and cerebral infarction without residual deficits; Z86.718 Personal history of other venous thrombosis and embolism; Z87.440 Personal history of urinary (tract) infections; Z88.0 Allergy status to penicillin
CPT/HCPCS: 36415; 36600; 71045; 74176; 80048; 80053; 81003; 82270; 82375; 82550; 82553; 82607; 82728; 82746; 82805; 82962; 83036; 83540; 83550; 83605; 83735; 83880; 84145; 84484; 85014; 85018; 85025; 85044; 86850; 86900; 87106; 87426; 93005; 93970; 94640; 99291; A6261; C9113; J1450; J1650; J1815; J2185; J3010; J3370; J3475; J3480; J3490; J7030; J7050